=== PATIENT | female | born 1960 | race Caucasian/White ===

== ENCOUNTER 2016-06-26 06:03 | Inpatient (IN) | payer BC ==
[2016-05-31 13:53] VITALS: BMI 43.0
--- NOTE | 2016-05-31 14:21 | PAT Medication Instructions ---
Service Date May 31, 2016. Current Home Medication List Albuterol Sulfate (Proair Hfa), 2 PUFFS QID PRN Diclofenac (Voltaren), 75 MG PO BID Fluticasone Prop/Salmeterol (Advair Diskus 100/50 60 Dose), 1 PUFF INH QAM Levothyroxine Sodium (Levothroid), 100 MCG PO QAM Medication Instructions For Your Scheduled Surgery Diclofenac (Voltaren), 75 MG PO BID (per surgeon for instructions) - Take the following medications the morning of surgery with a sip of water: Fluticasone Prop/Salmeterol (Advair Diskus 100/50 60 Dose), 1 PUFF INH QAM Levothyroxine Sodium (Levothroid), 100 MCG PO QAM Albuterol Sulfate (Proair Hfa), 2 PUFFS QID PRN (bring with you to hospital morning of surgery) - Take the following medications as scheduled the night before surgery: Albuterol Sulfate (Proair Hfa), 2 PUFFS QID PRN If you have any questions please call us at [phone] (Diane Rowan PA-C) or [phone] or [phone]
[2016-05-31 15:04] LABS: BASO % 0.4 %; BASO ABS # 0.02 K/uL (0-0.2); COMPLETE YES; EOS % 3.3 %; HEMATOCRIT 41.1 % (37-47); IG% 0.2 %; LYMPH % 29.7 %; MEAN CORPUSCULAR HGB CONC 33.3 g/dl (32-36); MEAN PLATELET VOLUME 9.2 fL (7.4-10.4); MONO % 11.3 %; NEUT % 55.1 %; PLATELET COUNT 261 K/uL (130-400); RED BLOOD COUNT 4.42 M/uL (4.2-5.4); WHITE BLOOD COUNT 5.39 K/uL (4.8-10.8)
[2016-05-31 15:16] LABS: URINE APPEARANCE CLEAR (CLEAR); URINE BILIRUBIN NEG (NEG); URINE COLOR YELLOW; URINE NITRITE NEG (NEG); URINE SPECIFIC GRAVITY 1.022 (1.000-1.030); UROBILINOGEN NEG (NEG); ZZUR CULT IF INDIC CLEAN CATCH NO
[2016-05-31 15:19] LABS: PARTIAL THROMBOPLASTIN RATIO 1.4; PROTHROMBIN TIME (PATIENT) 10.9 SECONDS (9.0-12.0)
[2016-05-31 15:22] LABS: BUN/CREATININE RATIO 26.7 (10-20); CALCIUM 9.3 mg/dl (8.5-10.1); CREATININE 0.6 mg/dl (0.60-1.20); POTASSIUM 3.9 mmol/L (3.5-5.1)
[2016-05-31 15:23] LABS: MANUAL MICROSCOPIC REQUIRED? NO; REVIEW REQ? NO
--- NOTE | 2016-06-25 14:58 | HISTORY & PHYSICAL EXAMINATION ---
DATE OF ADMISSION: 06/26/[address] Lieberman. CHIEF COMPLAINT: Left hip pain. HISTORY OF PRESENT ILLNESS: This 55-year-old white female presented to the office with complaints of left hip pain that she has had for over a year. Pain has increased with time. Pain is worse with weightbearing and is affecting her ADLs. She notes some limitation of motion. She previously had a right total hip replacement 3 or 4 years ago and is doing fairly well with that. She elects to proceed with the same on the left. No numbness or tingling. X-rays have been obtained. She notes that she would like to lose weight, but it is difficult to exercise with her hip pain. She previously smoked, but has quit. PAST MEDICAL HISTORY: Significant for asthma, COPD, obesity, hypothyroidism, osteoarthritis, and chronic back pain. PREVIOUS SURGERIES: Right hip GAURI 2012. D\T\C, breast biopsy bilaterally. FAMILY HISTORY: Noncontributory. SOCIAL HISTORY: The patient is . No tobacco use, no ETOH use. ALLERGIES: VARENICLINE (CHANTIX). CURRENT MEDICATIONS: Advair Diskus b.i.d., Synthroid daily, Voltaren p.o. b.i.d., albuterol inhaler 2 puffs 4 times a day as needed. REVIEW OF SYSTEMS: Significant for above stated conditions, otherwise unremarkable. PHYSICAL EXAMINATION: GENERAL: Well-developed, well-nourished middle aged white female, in no acute distress. Sitting in a chair. Alert and oriented. Morbidly obese. SKIN: Warm and dry with fair turgor. No rashes or lesions. No ecchymosis or erythema. HEENT: Normocephalic, atraumatic. Eyes PERRLA, EOMI. Nares patent bilaterally without turbinate enlargement. Oropharynx without erythema or exudate. No lesions noted. Uvula midline. Oral mucosa moist. Fair dentition. Fillings are noted. HEART: RRR. No MGR. LUNGS: Inspiratory wheeze heard on her left upper chest. This did clear with some deep breathing. No crackles or rhonchi. Good air movement. ABDOMEN: Morbidly obese. Bowel sounds present x4, soft, nontender. No organomegaly. MUSCULOSKELETAL: Left hip has no obvious asymmetry. No pain with palpation over her greater trochanter. She does have pain with palpation over the anterior flexion crease. Limited range of motion of the hip for flexion around 80 degrees. Limited internal rotation to just beyond neutral. External rotation around 20 degrees. These are all limited by pain. Ambulatory with an antalgic gait. NEUROLOGIC: Gross sensation is intact across both lower extremities by soft touch. Cranial nerves II-XII are intact. Peripheral pulses are 2+. DATA: Radiographic imaging previously obtained shows end-stage DJD of the left hip with joint space narrowing, periarticular osteophytes, and subchondral sclerosis. She already has a right total hip prosthesis present. IMPRESSION: Left hip end-stage degenerative joint disease. PLAN: Informed written consent was obtained to proceed with left total hip arthroplasty. Anticipate discharge to home with 2 weeks of home health services. She already has a walker. Preoperative lab work, EKG, and chest x-ray have been ordered. She has obtained medical clearance from her PCP, Dr. Michelle.
[2016-06-26] VITALS (8 sets, daily range): BP systolic 108–145; BP diastolic 67–98; PULSE 67–81; TEMP 36.4–36.8; O2SAT 94–100; Ht 175.3 cm; Wt 136.5 kg
[~2016-06-26] VITALS: Ht 175.3 cm; Wt 136.5 kg
[~2016-06-26 06:03] MED LIST: ADVIN10/60 INH; ALBU1AER9; CEFAZOLIN 3000 MG/65 ML D5W 65 ML IV SCH; DICL-201 PO; LACTATED RINGER'S 1000ML 1,000 ML IV SCH; LACTATED RINGER'S 1000ML 500 ML IV ONE; LACTATED RINGER'S 1000ML IV SCH; ROPIVACAINE 5MG/ML 30 ML 150 MG, BUPIVACAINE/EPINEPHR 0.5% MPF 30 ML, KETOROLAC TROMETH... INFIL SCH; TRANEXAMIC ACID INJ 1,000 MG in SODIUM CHLORIDE 0.9% 100ML 100 ML IV SCH; [UNRECOGNIZED DRUG - CODE] PO
--- NOTE | 2016-06-26 06:27 | History & Physical Bridge Note ---
H&P Re-Evaluation Bridge Note: I have examined the patient, reviewed the History & Physical and in the interval since the performance of the History & Physical I have noted the following changes of clinical significance: No changes noted
[2016-06-26] MEDS ORDERED: BUPIVACAINE 0.5 % 5 MG/1 ML PF 10ML VIAL ONE (06:49)
[2016-06-26] MEDS ORDERED: ONDANSETRON INJ 2 MG/ML 2 ML VIAL IV PRN ×2 (08:15→11:00)
[2016-06-26] MEDS ORDERED: FENTANYL CITRATE INJ 50 MCG/1 ML 2 ML VIAL IV PRN (08:15)
[2016-06-26] MEDS ORDERED: ATROPINE SULFATE 0.1 MG/ML 5ML SYR IV PRN (08:15)
[2016-06-26] MEDS ORDERED: EpHEDrine SULFATE INJ 50 MG/ML AMP IV PRN (08:15)
[2016-06-26] MEDS ORDERED: ORTHO JOINT ANESTHETIC ONE (08:42)
[2016-06-26] MEDS ORDERED: POVIDONE-IODINE OP SOLN 30 ML BTL ONE (08:43)
[2016-06-26] MEDS ORDERED: MIDAZOLAM HCL 1 MG/ML 2ML VIAL ONE ×2 (09:25→09:28)
[2016-06-26] MEDS ORDERED: FENTANYL CITRATE INJ 50 MCG/1 ML 2 ML VIAL ONE (09:28)
[2016-06-26] MEDS ORDERED: LIDOCAINE HCL 2% 2 ML VIAL (20MG/ML) ONE (09:30)
[2016-06-26] MEDS ORDERED: PROPOFOL IV EMULSION 10 MG/ML 20 ML VIAL IV ONE ×3 (09:30→10:32)
--- NOTE | 2016-06-26 10:43 | [facility] Post Operative Brief Note ---
Immediate Operative Summary Operative Date Jun 26, 2016. Pre-Operative Diagnosis Left hip end-stage degenerative joint disease Post-Operative Diagnosis Left hip end-stage degenerative joint disease Procedure(s) Performed Left Total Hip Arthroplasty--Uncemented Surgeon Dr. Lieberman Corporate Compliance Officer Surgeon(s) John Flores-pac Estimated Blood Loss 250 CC Findings severe djd/large bmi Fluids (cc crystalloids) 1500cc Specimens A: Left femoral head Drains none Anesthesia spinal Complication(s) None Disposition Recovery Room / PACU
[2016-06-26] MEDS ORDERED: DiphenhydrAMINE HCL 50 MG/ML VIAL IV PRN (11:00)
[2016-06-26] MEDS ORDERED: ACETAMINOPHEN 325 MG TAB PO PRN (11:00)
[2016-06-26] MEDS ORDERED: MAGNESIUM HYDROXIDE SUSP 30 ML UDC PO PRN (11:00)
[2016-06-26] MEDS ORDERED: BISACODYL 10 MG SUPP PR PRN (11:00)
[2016-06-26] MEDS ORDERED: METOCLOPRAMIDE HCL INJ 5 MG/ML 2 ML VIAL IV PRN (11:00)
[2016-06-26] MEDS ORDERED: ALBUTEROL HFA 8 GM INHALER INH PRN (11:00)
[2016-06-26] MEDS ORDERED: ALUMINUM/MAGNESIUM/SIMETH (MAALOX MAX) 30 ML UDC PO PRN (11:00)
[2016-06-26] MEDS ORDERED: MoRPHine SULFATE 2 MG/ML CARP IV PRN (11:00)
--- NOTE | 2016-06-26 11:14 | OPERATIVE REPORT ---
DATE OF OPERATION: 06/26/2016 PREOPERATIVE DIAGNOSIS: Severe osteoarthritis, left hip. POSTOPERATIVE DIAGNOSIS: Same with morbid BMI. OPERATION PERFORMED: Noncemented left total hip replacement. SURGEON: Luisana. SENIOR SHIPPING CLERK: Nickolas Flores PA-C. No resident or fellow available. SUMMARY OF IMPLANTS: Size 54 shell sector cup hole eliminator, 6.5 x 30 screw, 36 x 54 neutral liner, 5 high offset stem, 36 +5 head. PERIOPERATIVE SITUATION: Medically cleared female with intractable hip pain has large BMI, but at this point in time she cannot even rest in a chair. She wants to proceed with surgical treatment. Options were discussed with her. She was advised concerning all the increased risk based on her size including fracture, infection, DVT, PE and . She understands this. OPERATION AND FINDINGS: OPERATION: The patient appropriately identified, site verified, consent verified, 3 grams of Ancef confirmed as being given. The left lower extremity was prepped and draped in usual routine fashion with the patient in right lateral decubitus position. Posterolateral approach to the hip was made due to her size, a large incision was required. The fat layer was quite deep. The Charnley retractor was used for the superficial layer, the fascia was then identified. The fascia was then incised and then deep retractors placed. Care taken to protect the sciatic nerve. The short external rotators were released. The capsule was excised. The hip was dislocated. The femoral neck resected. There was large inverted acetabular labrum. This was all resected. Serial reaming carried up to a 54 and a 54 cup impacted into appropriate anteversion and inclination. It had excellent rim fit and it was secured with a 6.5 x 30 screw with excellent purchase. Trial liner was seated. The leg was then flexed and internally rotated. The femur delivered into the wound and the proximal femur prepared with the wire bound box machine operator, lateralizing rasp, serial broaching up to a size 5. A size 5 trial was then carried out with the standard and high offset. The high offset decreased shuck but did not change the length. The stability was excellent. The +5 neck length had the leg lengths within millimeters of equality. The trials were then reduced, the wound was irrigated with Betadine Pulsavac, hole eliminator, permanent liner seated, permanent head and neck seated, the hip reduced. It was very stable in all planes. It was then irrigated with Betadine Pulsavac and then the short external rotators closed with #2 Vicryl, the fascia with multiple #2 Vicryls. The IT band and the gluteus onel fascia and the deep fat with the same stitch and then the subcutaneous fat with 2-0 Vicryl and the skin with antonio. Appropriate dressing applied. The patient transferred to recovery room in satisfactory condition having tolerated the procedure well. Estimated blood loss 250 mL, crystalloid roughly 1500 mL. Again summary of implants 54 shell sector cup hole eliminator, 6.5 x 30 screw, 36 x 54 neutral liner, 5 high offset stem, 36 +5 head. Deep venous thrombosis prophylaxis per protocol. I attest to the content of the Intraoperative Record and any orders documented therein. Any exceptio ns are noted below.
--- NOTE | 2016-06-26 11:36 | DIAGNOSTIC IMAGING REPORT ---
PELVIS 1 OR 2 VIEW ROUTINE CLINICAL HISTORY: Left hip pain COMPARISON STUDY: 04/30/2012 FINDINGS: There are postsurgical changes of bilateral total hip arthroplasties. No acute fractures or dislocations are visualized. There is air within the soft tissues of the left, consistent with recent surgery. IMPRESSION: Bilateral total hip arthroplasties. No evidence of dislocation. Electronically signed by: Jamaal Peña M.D. 06/26/2016 11:34 AM Dictated Date/Time: 06/26/2016 11:33 AM
--- NOTE | 2016-06-26 11:46 | Anesthesiology Progress Note ---
Anesthesia Post Op Note Date & Time Jun 26, 2016 at 11:46 Vital Signs Pain Intensity: 0 Vital Signs Past 12 Hours Date Time Temp Pulse Resp B/P Pulse Ox O2 Delivery O2 Flow Rate FiO2 06/26/16 11:35 36.8 64 18 99/65 100 Nasal Cannula 3 06/26/16 11:20 36.8 59 18 104/64 100 Nasal Cannula 3 06/26/16 11:10 36.8 55 18 97/65 100 Nasal Cannula 3 06/26/16 11:00 60 18 103/55 100 Nasal Cannula 3 06/26/16 10:50 69 18 102/55 100 Nasal Cannula 3 06/26/16 10:43 36.5 67 18 95/54 100 Nasal Cannula 3 06/26/16 07:03 36.6 73 20 145/98 Room Air 94 Notes Mental Status: alert / awake / arousable, participated in evaluation Pt Amnestic to Procedure: Yes Nausea / Vomiting: adequately controlled Pain: adequately controlled Airway Patency, RR, SpO2: stable & adequate BP & HR: stable & adequate Hydration State: stable & adequate Neuraxial Anesthesia: was administered, sensory block is resolving Anesthetic Complications: no major complications apparent
[2016-06-26] MEDS ORDERED: MoRPHine SULFATE 4 MG/ML 1 ML CARP\\VIAL IV PRN (13:30)
--- NOTE | 2016-06-26 13:30 | OPERATIVE REPORT ---
DATE OF OPERATION: 06/26/2016 PREOPERATIVE DIAGNOSIS: Left hip end-stage degenerative joint disease. POSTOPERATIVE DIAGNOSIS: Left hip same. PROCEDURE: Left hip total hip arthroplasty using DePuy implants. SURGEON: Dr. Lieberman. MOLDER LABELS: Nickolas Flores PA-C. HISTORY OF PRESENT ILLNESS: This 55-year-old white female presented to the office with complaints of intractable left hip pain. She had tried conservative care measures without success. She elected to proceed with surgical intervention after being educated about potential risks and outcomes. Preoperative x-rays were obtained. OPERATION: The patient was administered spinal anesthetic and then taken to the operating room where she was given sedation. She was prepped and draped in the usual sterile fashion. Please see Dr. Lieberman's operative report for specifics of the procedure. I was present for the entire case from initial patient positioning through final wound closure. Assistance was provided in tissue retraction, hemostasis, trial implant placement, final implant placement, and final wound closure. The patient was taken to the recovery room in satisfactory condition. I attest to the content of the Intraoperative Record and any orders documented therein. Any exceptio ns are noted below.
--- NOTE | 2016-06-26 13:37 | PROGRESS NOTE ---
DATE: 06/26/2016 Postop check status post left total hip replacement. At this point in time, the patient is doing well. She denies headache, nausea, vomiting, chest pain, shortness of breath, fever or chills. She notes that she can move her toes well. She can flex her hip well. Vital signs are stable. She is afebrile. Examination reveals femoral sciatic nerve to be intact. Wound dressing clean, dry and intact. Postop x-rays look excellent. ASSESSMENT: Doing well. Continue with postop care pathway. Coumadin nomogram dee. PT, OT today.
[2016-06-26] MEDS ORDERED: D5W AND 1/2NSS + 20MEQ KCL 1,000 ML IV SCH (13:45)
[2016-06-26] MEDS: ACETAMINOPHEN IV 1,000 MG in EMPTY BAG 0 ML IV SCH ×2 (13:48→21:30)
[2016-06-26] MEDS: KETOROLAC TROMETHAMINE 30 MG/ML VIAL IV. SCH ×2 (13:51→19:48)
[2016-06-26] MEDS ORDERED: WARF2TAB PO (15:36)
[2016-06-26] MEDS ORDERED: OXYC-57 PO (15:36)
[2016-06-26] MEDS ORDERED: WARFARIN SOD 5 MG TAB PO SCH (16:00)
[2016-06-26] MEDS: CEFAZOLIN IV 2,000 MG in DEXTROSE 5% 50ML 50 ML IV SCH (16:18)
[2016-06-26] MEDS: OXYCODONE HCL IR 5 MG TAB (IMMEDIATE RELEASE) PO PRN (16:18)
[2016-06-26] MEDS ORDERED: TRANEXAMIC ACID INJ 1,000 MG in SODIUM CHLORIDE 0.9% 100ML 100 ML IV SCH (17:00)
[2016-06-26] MEDS: FERROUS GLUCONATE 324 MG TAB PO SCH (18:05)
[2016-06-26] MEDS: DOCUSATE SODIUM 100 MG CAP PO SCH (21:29)
[2016-06-27] MEDS: CEFAZOLIN IV 2,000 MG in DEXTROSE 5% 50ML 50 ML IV SCH (00:15)
[2016-06-27] MEDS: OXYCODONE HCL IR 5 MG TAB (IMMEDIATE RELEASE) PO PRN ×2 (00:16→12:45)
[2016-06-27] MEDS: KETOROLAC TROMETHAMINE 30 MG/ML VIAL IV. SCH ×2 (01:50→07:36)
[2016-06-27 03:42] VITALS: BP 102/60; PULSE 77; TEMP 36.5; O2SAT 94
[2016-06-27] MEDS: ACETAMINOPHEN IV 1,000 MG in EMPTY BAG 0 ML IV SCH (05:36)
[2016-06-27] MEDS ORDERED: LEVOTHYROXINE 100 MCG TAB PO SCH (06:00)
[2016-06-27 06:31] LABS: PROTHROMBIN TIME (PATIENT) 10.8 SECONDS (9.0-12.0)
[2016-06-27 06:50] LABS: BUN/CREATININE RATIO 22.1 (10-20); CALCIUM 8.8 mg/dl (8.5-10.1); CREATININE 0.7 mg/dl (0.60-1.20); POTASSIUM 4.2 mmol/L (3.5-5.1)
[2016-06-27 07:24] LABS: COMPLETE YES; EOS % 0.1 %; HEMATOCRIT 38.8 % (37-47); IG% 0.3 %; LYMPH % 7.9 %; LYMPH ABS # 0.85 K/uL (1.2-3.4); MEAN CELL VOLUME 93.7 fL (80-100); MEAN CORPUSCULAR HEMOGLOBIN 31.4 pg (25-34); MEAN CORPUSCULAR HGB CONC 33.5 g/dl (32-36); MEAN PLATELET VOLUME 9.3 fL (7.4-10.4); NEUT % 81.7 %; PLATELET COUNT 281 K/uL (130-400); RED BLOOD COUNT 4.14 M/uL (4.2-5.4); WHITE BLOOD COUNT 10.82 K/uL (4.8-10.8)
[2016-06-27] MEDS ORDERED: DEXAMETHASONE INJ 10 MG in SYRINGE 0 ML IV SCH (07:30)
--- NOTE | 2016-06-27 08:07 | Orthopedic Progress Note ---
Orthopedic Progress Note Date of Service Jun 27, 2016. Subjective Post OP Day: 1 Reports: feeling well, Denies: SOB, calf pain, chest pain, complaints, light headedness, nausea / vomiting Additional Notes: states she feels well enough to go home today. Has been out of bed. Objective calves soft nontender, N/V intact, hip located, capillary refill less than 2 sec., dressing C/D/I, incision C/D/I, A&O x3, toes mobile, CMS intact minimal drainage on dressings. Moves hip well Date Time Temp Pulse Resp B/P Pulse Ox O2 Delivery O2 Flow Rate FiO2 06/27/16 07:18 Room Air 06/27/16 03:42 36.5 77 18 102/60 94 Room Air 06/27/16 00:05 Room Air 06/26/16 23:05 36.5 72 18 110/68 95 Room Air 06/26/16 20:20 36.8 77 16 116/69 97 Nasal Cannula 2.0 06/26/16 16:00 36.6 75 16 112/75 97 Nasal Cannula 2.0 06/26/16 15:44 Nasal Cannula 2.0 06/26/16 15:00 36.5 81 16 126/79 94 Nasal Cannula 2.0 06/26/16 14:00 36.6 81 18 125/74 100 Nasal Cannula 2.0 06/26/16 13:33 36.5 67 16 116/75 100 Nasal Cannula 2.0 06/26/16 13:00 100 Nasal Cannula 2.0 06/26/16 13:00 36.4 69 18 108/67 100 Nasal Cannula 2.0 06/26/16 13:00 100 Nasal Cannula 2.0 06/26/16 12:50 62 18 103/68 100 Nasal Cannula 2 06/26/16 12:35 80 18 107/68 100 Nasal Cannula 2 06/26/16 12:20 60 18 102/64 100 Nasal Cannula 2 06/26/16 12:05 54 18 105/71 100 Nasal Cannula 2 06/26/16 11:50 59 18 103/67 100 Nasal Cannula 3 06/26/16 11:35 36.8 64 18 99/65 100 Nasal Cannula 3 06/26/16 11:20 36.8 59 18 104/64 100 Nasal Cannula 3 06/26/16 11:10 36.8 55 18 97/65 100 Nasal Cannula 3 06/26/16 11:00 60 18 103/55 100 Nasal Cannula 3 06/26/16 10:50 69 18 102/55 100 Nasal Cannula 3 06/26/16 10:43 36.5 67 18 95/54 100 Nasal Cannula 3 Laboratory Results 24 Hours: Test 06/27/16 05:44 White Blood Count 10.82 K/uL Red Blood Count 4.14 M/uL Hemoglobin 13.0 g/dL Hematocrit 38.8 % Mean Corpuscular Volume 93.7 fL Mean Corpuscular Hemoglobin 31.4 pg Mean Corpuscular Hemoglobin Concent 33.5 g/dl Platelet Count 281 K/uL Mean Platelet Volume 9.3 fL Neutrophils (%) (Auto) 81.7 % Lymphocytes (%) (Auto) 7.9 % Monocytes (%) (Auto) 10.0 % Eosinophils (%) (Auto) 0.1 % Basophils (%) (Auto) 0.0 % Neutrophils # (Auto) 8.85 K/uL Lymphocytes # (Auto) 0.85 K/uL Monocytes # (Auto) 1.08 K/uL Eosinophils # (Auto) 0.01 K/uL Basophils # (Auto) 0.00 K/uL Prothromb Time International Ratio 1.0 Prothrombin Time 10.8 SECONDS Assessment & Plan Assessment: Left hip s/p total hip arthroplasty, post op day 1 Plan: PT/OT this morning D/C to home with home health later today after PT/OT keep the dressings on until Friday, then change daily Dressing changed today by me, wound looks excellent. coumadin today per nomogram, prior to D/C continue total hip precautions. Discharge Planning Discharge Planning: home with home health Pain Management: Percocet DVT Prophylaxis: TEDs, SCDs, Coumadin Therapy: Physical Therapy
--- NOTE | 2016-06-27 08:09 | Discharge Instructions ---
Discharge Instructions Date of Service Jun 26, 2016. Admission Reason for Admission: Djd Hip Left Discharge Discharge Diagnosis / Problem: left hip s/p total hip replacement Discharge Goals Goal(s): Decrease discomfort, Improve function, Increase independence Activity Recommendations Activity Limitations: as noted below Lifting Limitations: gradually increase as tolerated Exercise/Sports Limitations: until after follow-up appointment Shower/Bathe: keep incision dry Driving or Machine Use: No driving until cleared by Dr. Lieberman Weightbearing Status: Left weightbearing (as tolerated) . Instructions / Follow-Up Instructions / Follow-Up New Medicine: * You will likely be taking one or more of these medicines: 1. Percocet - Take, as directed, when you need it, every four to six hours to control your pain. 2. Coumadin - Thins your blood to lessen the chance of forming a blood clot. The dose of this is different for each person and is based on your blood tests that are done twice a week. * The most common side effects of pain medicine and iron are nausea and constipation. If nausea or constipation is too much of a problem or if you have any questions about your new medicines or doses, call [facility] at . We will try to help you manage these issues. VERY IMPORTANT TO READ AND REVIEW" Blood Clots and Blood Thinning Medicine: * You are given Coumadin during the immediate post-operative period to lessen the risk of blood clots forming in your legs and/or lungs. Coumadin is usually given for six weeks after surgery. * The prescription is for 2 mg tablets. At discharge, you should understand your dose and take it all at the same time every day, preferably after dinner. * You need to get your blood checked 1 - 2 times per week for six weeks, or as directed. * If your dose needs to change, we will call you. Do not take your medication on the day of the blood test until we call you. * If you don't hear from us after your blood draws, keep taking the same dose. Pain: * The immediate post-operative period after hip replacement surgery is often quite painful. * You are given a prescription for pain medicine. You should take it, as directed, when you need it, especially before physical therapy and before going to bed. Pain that interferes with sleep is very common and can last several months. * You will likely need pain medicine for the first two to four weeks. It will not stop all of the pain. The pain will lessen and as you feel better, you may change to milder pain medicine such as Tylenol. * The most common side effects of pain medicine are nausea and constipation, so don't take more than you need. Physical Therapy: * Follow the "Hip Precautions Instructions." * In some cases, the public health social worker at the hospital will arrange to have a therapist come to your house for the first couple of weeks to help you learn these skills. * You need to practice on your own or with the help of a family member as needed. * When you learn these skills, most of the therapy can be done on your own. Home Exercise: * You were shown a series of exercises in the hospital. Do these exercises three to four times each day including the exercises you were shown in physical therapy. Walking: * Get up and walk several times each day. For the first four weeks, try not to stand or walk for more than one hour at a time. If you do stand or walk for more than one hour, you will not hurt anything, but your leg will likely swell. * As you feel comfortable, you may change from the walker or crutches to a cane and then to independent walking. SELF CARE INSTRUCTIONS AFTER TOTAL HIP REPLACEMENT Until the incision and soft tissues around your hip have healed, there is a possibility that the hip prosthesis could dislocate. A. Observe the following precautions to prevent dislocation: 1. Don't bend your hip greater than 90 degrees. 2. Avoid crossing your legs or ankles while standing or lying. 3. Sit with your feet placed 6 inches apart. 4. When sitting, keep your knees below your hips. Sit on a firm surface, avoid deep, soft chairs and couches. Use an elevated toilet seat in the bathroom. 5. Don't bend over at the waist. Use a long handled shoehorn and a sock aid to help you put on your shoes and socks. A early learning teacher can help you cotton picker objects that are too high or too low to reach. 6. Keep car riding to a minimum for at least one month after surgery. B. Your balance may be shaky for a while. Use crutches or a walker until directed by your doctor. C. Use hand rails when walking on stairs. D. Wear low heeled shoes with non-slip soles. E. Be sure that your floors are free of things that could trip you - throw rugs , electrical cords, small objects. Avoid wet and waxed floors, especially with crutches and canes. F. Try to walk several times a day with rest periods between. G. Continue with all the exercises taught to you in the hospital. Again, make walking a part of your daily routine. VERY IMPORTANT TO READ AND REVIEW A. Take Coumadin, or Lovenox (blood thinning medications) as directed by your doctor. If you are on Coumadin, have a pro-time (blood test) drawn according to your doctor's instructions. This will tell the doctor how well the Coumadin is thinning your blood. B. There are a few signs you need to watch for after you are home. If you notice any of the followin. Increased severe hip pain. Some pain is expected especially when you exercise. 2. Increased swelling in your leg or knee; pain or swelling of the calf muscle in either lower leg. 3. Any fluid drainage from the incision. 4. Shortness of breath or chest pain. TEDs/Elastic Stockings: * The white elastic stockings help limit swelling and prevent blood clots from forming in your legs. The more you wear them, the more they work. * Wear them for six weeks. Prevention of Infection: * Take antibiotics one hour before any dental cleaning, dental work, urological procedure, gastrointestinal procedure or any invasive surgery in order to prevent your new joint from getting infected. * You may get the antibiotics from the doctor performing the procedure or we will call in a prescription to the pharmacy of your choice. Call the office for a prescription at least 2 days prior to your appointment. Things to Watch For: * Drainage from the incision site that occurs more than one week after your surgery. * Severely increased leg pain or swelling. * Increased redness at the incision site. * Fever above 101 degrees Fahrenheit. * Unusual chest pain or shortness of breath. * Unusual pain or burning with urination. Current Hospital Diet Patient's current hospital diet: AHA Diet (Heart Healthy) Discharge Diet Recommended Diet: Regular Diet Procedures Procedures Performed: Left Total Hip Arthroplasty--Uncemented Pending Studies Studies pending at discharge: no Medical Emergencies . Who to Call and When: Medical Emergencies: If at any time you feel your situation is an emergency, please call 911 immediately. . Non-Emergent Contact Non-Emergency issues call your: Primary Care Provider, Surgeon Call Non-Emergent contact if: temperature is above 101, wound has increased drainage, wound has increased redness, wound has increased pain . "Provider Documentation" section prepared by Nickolas Flores PA-C. VTE Core Measure Inpt VTE Proph given/why not?: Warfarin (Coumadin), T.EPaloma Stockings, SCD's [place] Drug Monitoring Program Search Results: no issues identified
[2016-06-27 08:14] VITALS: BP 103/63; PULSE 80; TEMP 36.9; O2SAT 94
--- NOTE | 2016-06-27 08:19 | PROGRESS NOTE ---
DATE: 06/27/2016 DATE: 06/27/2016. Postop day 1 status post left total hip replacement. At this point in time the patient is doing well. She is ambulatory. She is sitting up at the bed. She denies any chest pain, shortness of breath, fever, chills, nausea, vomiting, or headache. Vital signs are stable. She is afebrile. Wound is clean and intact. Neurovascular check femoral sciatic nerve is normal. Calves are nontender. Hematocrit stable at 38.8. INR is 1.0. The electrolytes are excellent. ASSESSMENT: Overall, doing well. Plan is to discharge today after PT, OT, bulky dressing until Friday. Coumadin 4 mg daily. Check INR on Friday.
--- NOTE | 2016-06-27 08:22 | DISCHARGE SUMMARY ---
DATE OF DISCHARGE: 06/27/2016. CHIEF COMPLAINT: Left hip pain. HISTORY OF PRESENT ILLNESS: A 55-year-old female admitted for elective left total hip replacement. At this point in time her hospital course has been uneventful. PAST MEDICAL HISTORY: Remarkable for COPD, asthma, obesity, hypothyroidism, osteoarthritis, and chronic back pain. PAST SURGICAL HISTORY: Include right total hip replacement, breast biopsy bilaterally, D\T\C. FAMILY HISTORY: Noncontributory. SOCIAL HISTORY: Reveals she is . No tobacco or alcohol use. ALLERGIES: CHANTIX. PREADMISSION MEDICATIONS: Include Advair Diskus, Synthroid, Voltaren, albuterol. She will discontinue the Voltaren. Add p.r.n. pain management with Percocet or equivalent and Coumadin to keep INR 1.8-2.2. She will be discharged on 4 mg. REVIEW OF SYSTEMS: Reveals no chest pain, shortness of breath, fever or chills. ASSESSMENT: Overall doing well status post left total hip replacement. Continue care pathway and follow up in the office in 2 weeks.
[2016-06-27] MEDS ORDERED: MULTIVITAMIN TAB PO SCH (09:00)
[2016-06-27] MEDS ORDERED: PANTOprazole SOD 40 MG TAB PO SCH (09:00)
[2016-06-27] MEDS ORDERED: FLUTICASONE/SALMETEROL 100/50 (ADVAIR) 14 PUFF/1 INHALER INH SCH (09:00)
[2016-06-27 09:22] VITALS: O2SAT 94
[2016-06-27] MEDS: FERROUS GLUCONATE 324 MG TAB PO SCH ×2 (09:55→12:43)
[2016-06-27] MEDS: DOCUSATE SODIUM 100 MG CAP PO SCH (09:56)
[2016-06-27] MEDS ORDERED: WARFARIN SOD 5 MG TAB PO SCH (10:00)
--- NOTE | 2016-06-27 10:42 | Anesthesiology Progress Note ---
Anesthesia Post Op Note Date & Time Jun 27, 2016 at 10:41 Vital Signs Vital Signs Past 12 Hours Date Time Temp Pulse Resp B/P Pulse Ox O2 Delivery O2 Flow Rate FiO2 06/27/16 09:22 94 Room Air 06/27/16 08:14 36.9 80 14 103/63 94 Room Air 06/27/16 07:18 Room Air 06/27/16 03:42 36.5 77 18 102/60 94 Room Air 06/27/16 00:05 Room Air 06/26/16 23:05 36.5 72 18 110/68 95 Room Air Notes Mental Status: alert / awake / arousable, participated in evaluation Pt Amnestic to Procedure: Yes Nausea / Vomiting: adequately controlled Pain: adequately controlled Airway Patency, RR, SpO2: stable & adequate BP & HR: stable & adequate Hydration State: stable & adequate Neuraxial Anesthesia: was administered, sensory block resolved Anesthetic Complications: no major complications apparent
[2016-06-27 11:21] VITALS: BP 142/78; PULSE 80; TEMP 36.4; O2SAT 95
[2016-06-27 12:53] VITALS: BP 142/78; PULSE 80; TEMP 36.4; O2SAT 95
== END 2016-06-27 13:30 | disposition home health service (06) | DRG 470 ==
LOC: ENRESERVTM → ENRESERVDT → C.ACU 06:03 → C.3E 06:50
PROVIDERS: ADMIT Physical Medicine & Rehabilitation Sports Medicine; ATTEND Physical Medicine & Rehabilitation Sports Medicine
PROC: 0SRB0JA Replacement of Left Hip Joint with Synthetic Substitute, Uncemented, Open Approach (ICD-10-PCS; principal; 2016-06-26 08:50)
DX: M16.12 Unilateral primary osteoarthritis, left hip (principal); Z68.41 Body mass index [BMI] 40.0-44.9, adult; J45.909 Unspecified asthma, uncomplicated; J44.9 Chronic obstructive pulmonary disease, unspecified; E03.9 Hypothyroidism, unspecified; G89.29 Other chronic pain; M54.9 Dorsalgia, unspecified; E66.01 Morbid (severe) obesity due to excess calories; Z96.641 Presence of right artificial hip joint; Z87.891 Personal history of nicotine dependence; Z79.1 Long term (current) use of non-steroidal anti-inflammatories (NSAID); Z79.51 Long term (current) use of inhaled steroids; Z79.899 Other long term (current) drug therapy

== ENCOUNTER → 2016-08-26 | Outpatient (CLI) | payer BC ==
[~2016-08-26] MED LIST changes: -CEFAZOLIN 3000 MG/65 ML D5W 65 ML IV SCH; -DICL-201 PO; -LACTATED RINGER'S 1000ML 1,000 ML IV SCH; -LACTATED RINGER'S 1000ML 500 ML IV ONE; -LACTATED RINGER'S 1000ML IV SCH; +OXYC-57 PO; -ROPIVACAINE 5MG/ML 30 ML 150 MG, BUPIVACAINE/EPINEPHR 0.5% MPF 30 ML, KETOROLAC TROMETH... INFIL SCH; -TRANEXAMIC ACID INJ 1,000 MG in SODIUM CHLORIDE 0.9% 100ML 100 ML IV SCH; +WARF2TAB PO
== END | disposition home or self-care (01) ==
LOC: C.RDSM 11:30
PROVIDERS: ATTEND Physical Medicine & Rehabilitation Sports Medicine
DX: Z96.649 Presence of unspecified artificial hip joint (principal)

== ENCOUNTER → 2017-03-26 | Outpatient (CLI) | payer BC ==
[~2017-03-26] MED LIST changes: -OXYC-57 PO; -WARF2TAB PO
--- NOTE | 2017-03-26 11:04 | DIAGNOSTIC IMAGING REPORT ---
R KNEE 4 OR MORE CLINICAL HISTORY: RIGHT KNEE PAIN pain COMPARISON: None DISCUSSION: Throat significant degenerative narrowing of the medial left joint compartment. Moderate narrowing of the medial right joint compartment with mild degenerative osteophytic changes of patellofemoral joint. No lytic or blastic process. There is no evidence for soft tissue swelling. IMPRESSION: 1. Mild/moderate degenerative change medial joint compartment right knee as well as right patellofemoral joint. 2. Significant degenerative narrowing medial joint compartments left knee in the standing position projection The above report was generated using voice recognition software. It may contain grammatical, syntax or spelling errors. Electronically signed by: Lenny Miles M.D. 03/26/2017 11:03 AM Dictated Date/Time: 03/26/2017 11:02 AM
== END | disposition home or self-care (01) ==
LOC: C.RDSM 10:28
PROVIDERS: ATTEND Physician Assistant
DX: M25.561 Pain in right knee (principal); M89.8X6 Other specified disorders of bone, lower leg

== ENCOUNTER → 2017-08-11 | Outpatient (CLI) | payer BC | END | disposition home or self-care (01) | LOC: C.RDSM 17:09 | PROVIDERS: ATTEND Physical Medicine & Rehabilitation Sports Medicine | DX: Z96.642 Presence of left artificial hip joint (principal) ==

== ENCOUNTER 2019-12-01 05:14 | Observation (INO) ==
--- NOTE | 2019-11-05 12:55 | PAT Medication Instructions ---
Medication Instructions Date of Service November 05, 2019 Home Medications acetaminophen [Tylenol Extra Strength] 1,000 mg PO BID albuterol sulfate [ProAir HFA] 2 puff INHALATION QID PRN atenolol 25 mg PO QAM fluticasone propion-salmeterol 1 inh INHALATION QPM furosemide 20 mg PO QAM levothyroxine 100 mcg PO QAM multivitamin 1 tab PO QAM naproxen sodium [Aleve] 440 mg PO Q12H diclofenac sodium [Diclo Gel] 2 g TOPICAL QPM fexofenadine 180 mg PO QAM ASK your surgeon for instructions naproxen sodium [Aleve] 440 mg PO Q12H STOP taking 24 hours before surgery diclofenac sodium [Diclo Gel] 2 g TOPICAL QPM DO NOT take the morning of surgery furosemide 20 mg PO QAM multivitamin 1 tab PO QAM fexofenadine 180 mg PO QAM Take morning of surgery With a small sip of water, OTHERWISE NOTHING TO EAT OR DRINK AFTER MIDNIGHT: acetaminophen [Tylenol Extra Strength] 1,000 mg PO BID (okay to take up to 4 hours prior to surgery if needed) albuterol sulfate [ProAir HFA] 2 puff INHALATION QID PRN (use if needed; please bring with you to hospital day of surgery if possible) levothyroxine 100 mcg PO QAM Take evening before surgery acetaminophen [Tylenol Extra Strength] 1,000 mg PO BID albuterol sulfate [ProAir HFA] 2 puff INHALATION QID PRN (if needed) fluticasone propion-salmeterol 1 inh INHALATION QPM Other Notes If you have any questions please call us at [phone] or [phone] or [phone] or [phone]
--- NOTE | 2019-11-05 13:15 | PAT Medication Instructions ---
Medication Instructions Date of Service November 05, 2019 Home Medications acetaminophen [Tylenol Extra Strength] 1,000 mg PO BID albuterol sulfate [ProAir HFA] 2 puff INHALATION QID PRN atenolol 25 mg PO QAM fluticasone propion-salmeterol 1 inh INHALATION QPM furosemide 20 mg PO QAM levothyroxine 100 mcg PO QAM multivitamin 1 tab PO QAM naproxen sodium [Aleve] 440 mg PO Q12H diclofenac sodium [Diclo Gel] 2 g TOPICAL QPM fexofenadine 180 mg PO QAM ASK your surgeon for instructions naproxen sodium [Aleve] 440 mg PO Q12H STOP taking 24 hours before surgery diclofenac sodium [Diclo Gel] 2 g TOPICAL QPM DO NOT take the morning of surgery furosemide 20 mg PO QAM multivitamin 1 tab PO QAM fexofenadine 180 mg PO QAM Take morning of surgery With a small sip of water, OTHERWISE NOTHING TO EAT OR DRINK AFTER MIDNIGHT: acetaminophen [Tylenol Extra Strength] 1,000 mg PO BID (okay to take up to 4 hours prior to surgery if needed) albuterol sulfate [ProAir HFA] 2 puff INHALATION QID PRN (use if needed; please bring with you to hospital day of surgery if possible) atenolol 25 mg PO QAM levothyroxine 100 mcg PO QAM Take evening before surgery acetaminophen [Tylenol Extra Strength] 1,000 mg PO BID (if needed) albuterol sulfate [ProAir HFA] 2 puff INHALATION QID PRN (if needed) fluticasone propion-salmeterol 1 inh INHALATION QPM Other Notes If you have any questions please call us at [phone] or [phone] or [phone] or [phone]
--- NOTE | 2019-11-08 12:29 | Anesthesiology Consultation ---
Date of Service November 08, 2019 Assessment & Plan (1) Encounter for pre-operative examination: - S/P Left GAURI: 06/26/16: SAB x1 attempt at [facility] (patient reports awareness with this surgery that she states she did not have with previous right GAURI). - Cardiology note: 06/22/19: Nuclear stress test from 06/17/19 reviewed. "Please let patient know that I reviewed her stress test results. There was a very small imaging abnormality in the one part of the heart. This could suggest either a small old heart attack or possibly movement artifact, which is common. There was normal wall motion and thickness in this area, suggesting this may not be an old WV but rather artifact. She also had an echo with normal wall motion and no evidence of prior WV. At this time, I do not believe further imaging or work up is needed. She should call the office with any new complaints of chest pain or worsening symptoms. She may proceed with elective orthopedic surgery with low to moderate risk of cardiac complications. No further cardiac testing warranted at this time." - Per PAT assessment on 11/07: Travel screen- Lives/works in [place] [place] No known COVID-19 positive contacts. No current COVID-19 related symptoms. Surgeon arranging preop COVID testing. Awaiting results. Chart Review Chart Review: Acceptable Risk for Surgery (pending surgeon-ordered PCP clearance ([facility])) and Patient seen in Pre Admission Testing Teaching & Discussion Pre-Anesthesia Teaching/Discussion Notes: Instructed NPO after midnight before surgery,except medications with 15 cc of water. Medication instructions provided according to the PAT guidelines. History Surgery Operation Date: 12/01/19 07:00 Proposed Procedures p Left Total Knee Arthroplasty - Rinku Lieberman MD Height/Weight Height: 5 ft 6 in Weight: 146.2 kg Allergies Allergy/AdvReac Type Severity Reaction Status Date / Time varenicline Allergy Intermediate nightmares Verified 10/29/19 08:09 Medications Home Medications Medication Instructions Recorded Confirmed Last Taken acetaminophen [Tylenol Extra 1,000 mg PO BID 07/01/19 10/29/19 Unknown Strength] albuterol sulfate [ProAir HFA] 2 puff INHALATION QID PRN 07/01/19 10/29/19 Unknown atenolol 25 mg PO QAM 07/01/19 10/29/19 Unknown fluticasone propion-salmeterol 1 inh INHALATION QPM 07/01/19 10/29/19 Unknown furosemide 20 mg PO QAM 07/01/19 10/29/19 Unknown levothyroxine 100 mcg PO QAM 07/01/19 10/29/19 Unknown multivitamin 1 tab PO QAM 07/01/19 10/29/19 Unknown naproxen sodium [Aleve] 440 mg PO Q12H 07/01/19 10/29/19 Unknown diclofenac sodium [Diclo Gel] 2 g TOPICAL QPM 10/29/19 10/29/19 Unknown fexofenadine 180 mg PO QAM 10/29/19 10/29/19 Unknown Past Medical History Medical History Chronic back pain lower back Chronic obstructive pulmonary disease stable Hypothyroidism Morbid obesity Osteoarthritis Paroxysmal SVT (supraventricular tachycardia) Exercise / Class Metabolic Activity III < 4 Walking/Shop/Light housework Past Family History Family History Grandmother (Maternal) Family history of diabetes mellitus Aunt Family history of diabetes mellitus Past Surgical History Surgical History (Updated 11/08/19 @ 12:58 by Diane Rowan) History of bilateral tubal ligation History of colonoscopy History of total hip arthroplasty R/L; Left GAURI: 06/26/16: SAB x1 attempt at [facility] Past Anesthesia History No Family Hx of Anesthesia Complications and Other (*Awareness with Left GAURI*) History of PONV No Hx of PONV and Hx of Motion Sickness Social History Smoking Status: Former smoker tobacco type: cigarettes Do You Dip or Chew Tobacco: No Smoking End Date: QUIT 10+ YEARS AGO Hx Alcohol Use: Yes Alcohol type: beer alcohol intake frequency: holidays/special occasions only Hx Substance Use: No substance use type: does not use Review of Systems Patient denies chest pain, shortness of breath, fever, chills, cough, wheezing, palpitations. Physical Exam Vital Signs VITALS BP 125/87 P 55 TEMP 98.5 SP02 93%RA RESP 18 PHYSICAL Full neck and c-spine range of motion. Full TMJ range of motion. TMD 3.5 finger breaths Mallampati Score 1 Dentition: several missing sides/molars Lungs: clear throughout to auscultation Cardiac: regular rate and rhythm, no murmurs noted Spine: normal Carotid arteries: negative bruit Extremities: no edema Short, thick neck Testing Laboratory Results 11/08/19 12:51 11/08/19 12:51 PT 10.5 Seconds (9.0-12.0) 11/08/19 12:51 INR 1.0 (0.9-1.1) 11/08/19 12:51 APTT 28.2 Seconds (21.0-31.0) 11/08/19 12:51 Urine Color Yellow 11/08/19 12:51 Urine Appearance Clear (Clear) 11/08/19 12:51 Urine pH 6.0 (4.5-7.5) 11/08/19 12:51 Ur Specific [place] 1.022 (1.000-1.030) 11/08/19 12:51 Urine Protein Negative (Negative) 11/08/19 12:51 Urine Glucose (UA) Negative (Negative) 11/08/19 12:51 Urine Ketones Negative (Negative) 11/08/19 12:51 Urine Nitrite Negative (Negative) 11/08/19 12:51 Ur Leukocyte Esterase 1+ (Negative) H 11/08/19 12:51 Urine WBC (Auto) 10-30 /hpf (0-5) H 11/08/19 12:51 Urine RBC (Auto) 0-4 /hpf (0-4) 11/08/19 12:51 U Hyaline Cast (Auto) 0 /lpf (0-5) 11/08/19 12:51 U Epithel Cells (Auto) >30 /lpf (0-5) H 11/08/19 12:51 Urine Bacteria (Auto) Negative (Negative) 11/08/19 12:51 Blood Type O Positive 11/08/19 12:51 Antibody Screen NEGATIVE 11/08/19 12:51 Electrocardiogram Date: 05/27/19 NSR at 77bpm. LAD. Chest X-Ray Date: 11/08/19 FINDINGS: PA and lateral chest radiographs are compared to study dated 04/14/2012. The cardiomediastinal silhouette is unremarkable. The lungs appear hyperinflated. Chronic interstitial thickening similar to previous. Mild scarring/atelectasis is seen at the lung bases. No airspace consolidation or pleural effusion is identified. There is no pneumothorax. The skeletal structures are osteopenic. The bony thorax appears intact. Degenerative change is noted throughout the thoracic spine. IMPRESSION: No active disease in the chest. Echocardiogram Date: 06/17/19 LVEF 60-64%. No RWMA. Mild LAE. Grade I DD. Mild TR. Stress Test Date: 06/17/19 Type: nuclear Gated SPECT imaging reveals normal myocardial thickening and wall motion. LVEF 70%. Overall this nuclear stress test reveals a small infarct of the distal anterior septum with mild todd-infarct ischemia. 71% MPHR.
--- NOTE | 2019-11-08 13:31 | XRay Report ---
TWO VIEW CHEST CLINICAL HISTORY: Preoperative examination. FINDINGS: PA and lateral chest radiographs are compared to study dated 04/14/2012. The cardiomediastin al silhouette is unremarkable. The lungs appear hyperinflated. Chronic interstitial thickening simila r to previous. Mild scarring/atelectasis is seen at the lung bases. No airspace consolidation or pleu ral effusion is identified. There is no pneumothorax. The skeletal structures are osteopenic. The bon y thorax appears intact. Degenerative change is noted throughout the thoracic spine. IMPRESSION: No active disease in the chest. ACT 112: Negative or not required by law. Electronically signed by: Andreas Gamino M.D. 11/08/2019 1:29 PM
[2019-11-08 13:43] LABS: Appearance Urine Clear (Clear); Bacteria Urine Automated Negative (Negative); Basophils # (auto) 0.03 K/uL (0-0.2); Basophils % (auto) 0.5 %; Bilirubin Urine Negative (Negative); Blood Urine Negative (Negative); Cast Urine Automated 0 /lpf (0-5); Color Urine Yellow; Eosinophils # (auto) 0.24 K/uL (0-0.5); Epithelial Cell Urine Auto >30 /lpf (0-5); Glucose Urine UA Negative (Negative); Hematocrit (blood only) 42.7 % (37-47); Hemoglobin 13.7 g/dL (12.0-16.0); Ketones Urine Negative (Negative); Leukocyte Esterase Urine 1+ (Negative); Lymphocytes # (auto) 1.83 K/uL (1.2-3.4); Lymphocytes % (auto) 30.2 %; Mean Corpuscular Hemoglobin 30.4 pg (25-34); Mean Corpuscular Hgb Conc 32.1 g/dL (32-36); Mean Corpuscular Volume 94.9 fL (80-100); Mean Platelet Volume 9.4 fL (7.4-10.4); Monocytes # (auto) 0.57 K/uL (0.11-0.59); Monocytes % (auto) 9.4 %; Neutrophils # (auto) 3.39 K/uL (1.4-6.5); Neutrophils % (auto) 55.9 %; Nitrite Urine Negative (Negative); Platelet Count 290 K/uL (130-400); Protein Urine Negative (Negative); RBC Urine Automated 0-4 /hpf (0-4); RDW Coefficient of Variation 12.9 % (11.5-14.5); RDW Standard Deviation 44.8 fL (36.4-46.3); Specific Gravity Urine 1.022 (1.000-1.030); Urobilinogen Urine Negative (Negative); White Blood Count 6.06 K/uL (4.8-10.8)
[2019-11-08 13:52] LABS: Partial Thromboplastin Time 28.2 Seconds (21.0-31.0); Prothrombin Time 10.5 Seconds (9.0-12.0)
[2019-11-08 15:15] LABS: BUN Creatinine Ratio 32.2 (10-20); Calcium 9.2 mg/dl (8.5-10.1); Est GFR (Non-African American) 97.5; Potassium 4.1 mmol/L (3.5-5.1)
[2019-12-01] MEDS ORDERED: LR 500ML BOLUS, THEN 15ML/HR IV SCH (06:00)
[2019-12-01] MEDS ORDERED: TRANEXAMIC ACID 1,000 MG **IV Pre-op IV SCH (06:00)
[2019-12-01] MEDS ORDERED: LR 60ML/HR IV SCH (06:00)
[2019-12-01] MEDS ORDERED: ROPIVACAINE 0.5% HCL/PF 150 MG, BUPIVACAINE 0.5% MPF 30 ML, EPINEPHrine 0.15 MG, Ketoro... INFIL SCH (06:00)
[2019-12-01] MEDS ORDERED: CEFAZOLIN 3000MG 72.5 ML IV SCH (06:00)
--- NOTE | 2019-12-01 06:25 | History & Physical Bridge Note ---
Date of Service December 01, 2019 History & Physical Bridge Note I have examined the patient, reviewed the History & Physical and in the interval since the performance of the History & Physical I have noted the following changes of clinical significance: consent obtained/site verified/covid screen negative.no changes noted
[2019-12-01] MEDS ORDERED: fentaNYL citrate 100 MCG/2 ML VIAL ONE (06:29)
[2019-12-01] MEDS ORDERED: LIDOCAINE HCL 2% 2 ML VIAL/AMP(20MG/ML) INFIL ONE (06:29)
[2019-12-01] MEDS ORDERED: PROPOFOL IV EMULSION 10 MG/ML 20 ML VIAL IV ONE ×4 (06:29→07:49)
[2019-12-01] MEDS ORDERED: EPINEPHrine INJ 1 MG/ML AMP ONE (06:30)
[2019-12-01] MEDS ORDERED: BUPIVACAINE 0.5 % 5 MG/1 ML PF 10ML VIAL ONE (06:30)
[2019-12-01] MEDS ORDERED: ROPIVACAINE 0.5% 5 MG/ML 30 ML VIAL ONE (06:30)
[2019-12-01] MEDS ORDERED: MIDAZOLAM HCL 1 MG/ML 2ML VIAL ONE (06:30)
[2019-12-01] MEDS ORDERED: ORTHO JOINT ANESTHETIC ONE (06:49)
[2019-12-01] MEDS ORDERED: PHENYLEPHRINE 100MCG/ML 5ML SYR IV PRN (07:13)
[2019-12-01] MEDS ORDERED: ATROPINE SULFATE 0.1 MG/ML 10ML SYR IV PRN (07:13)
[2019-12-01] MEDS ORDERED: LABETALOL HCL IV 5 MG/ML 20ML IV PRN (07:13)
[2019-12-01] MEDS ORDERED: fentaNYL citrate 100 MCG/2 ML VIAL IV PRN (07:13)
[2019-12-01] MEDS ORDERED: ePHEDrine sulfate 50 MG/ML AMP IV PRN (07:13)
[2019-12-01] MEDS ORDERED: ONDANSETRON INJ 2 MG/ML 2 ML VIAL IV PRN ×2 (07:13→10:08)
[2019-12-01] MEDS ORDERED: HYDROmorphone INJ 1 MG/ML SYRINGE IV PRN (07:13)
[2019-12-01] MEDS ORDERED: MEPERIDINE HCL 25 MG/ML CARP/VIAL IV PRN (07:13)
--- NOTE | 2019-12-01 08:32 | Post Operative Brief Note ---
Immediate Post Op Note v1 Date of Surgery December 01, 2019 Pre & Post Diagnosis Operation Date: 12/01/19 07:00 Pre-Op Diagnosis: Left Knee Degenerative Joint Disease Post-Op Diagnosis: Left Knee Degenerative Joint Disease I identified the patient and participated in the time-out.: Yes Procedure Operation Date: 12/01/19 07:00 Actual Procedures p Left Total Knee Arthroplasty(Left) - Rinku Lieberman MD Surgeon Rinku Lieberman MD Cable Ferry Operator luis enrique/ac/tabatha Estimated Blood Loss 50 Findings Consistent with Post-Op Diagnosis
--- NOTE | 2019-12-01 08:45 | Operative Report ---
Post Operative Report Pre & Post Diagnosis Operation Date: 12/01/19 07:00 Pre-Op Diagnosis: Left Knee Degenerative Joint Disease Post-Op Diagnosis: Left Knee Degenerative Joint Disease I identified the patient and participated in the time-out.: Yes Procedure Operation Date: 12/01/19 07:00 Actual Procedures p Left Total Knee Arthroplasty(Left) - Rinku Lieberman MD Surgeon ERIN Lieberman MD Puffer Tender luis enrique/ac/tabatha Estimated Blood Loss 50 Findings Consistent with Post-Op Diagnosis Specimens see operative report Drains none Complications none Disposition Accompanied Patient To Recovery: Yes Disposition: Recovery Room Indications This 59-year-old white female presented to the office with complaints of intractable left knee pain. She had tried conservative care measures without improvement. She elected to proceed with surgical intervention after being educated about potential risks and outcomes. Preoperative imaging was obtained. Description of Procedure Patient was administered a spinal anesthetic and then taken to the operating room where she was given sedation. She was prepped and draped in the usual sterile fashion. Please see Dr. Lieberman's operative report for specifics of the procedure. I was present for the entire case from initial patient positioning through final wound closure. Assistance was provided in tissue retraction, hemostasis, trial implant placement, final implant placement, and final wound closure. Patient was taken to the recovery room in satisfactory condition. I attest to the content of the Intraoperative Record and any orders documented therein. Any exceptions are noted below.
--- NOTE | 2019-12-01 08:51 | Operative Report (OR) ---
DATE OF OPERATION: 12/01/2019 SURGEON: Rinku Lieberman MD. DIRECT MARKETING MANAGER: Oriana. SECOND DIRECT MARKETING MANAGER: Nickolas Flores PA-C. THIRD DIRECT MARKETING MANAGER: Gerri 4th year med student. PREOPERATIVE DIAGNOSES: Severe osteoarthritis with varus deformity, left knee. POSTOPERATIVE DIAGNOSES: Severe osteoarthritis with varus deformity, left knee. OPERATION PERFORMED: Cemented left total knee replacement. SUMMARY OF IMPLANTS: Size 4 left femur, posterior cruciate substituting size 4 mobile bearing tray, size 4 x 12.5 posterior cruciate substituting insert and a 41 patella, 2 bags of Palacos G cement. ESTIMATED BLOOD LOSS: 50 mL CRYSTALLOID: Per anesthesia. DVT prophylaxis per protocol. PERIOPERATIVE SITUATION: Medically cleared female with intractable knee pain, has severe disease by x-rays, has high BMI. She knows she is at risk based on this. Consent was appropriately obtained. She wants to proceed with surgery. DESCRIPTION OF PROCEDURE: The patient was properly identified, site verified, consent verified. Antibiotics confirmed as being given. The left lower extremity was prepped and draped in usual routine fashion. The anterior approach to the knee was made. Sharp dissection carried through skin and blunt dissection down to the fascia. Arthrotomy performed and patella everted. Synovectomy completed, osteophytes resected. Distal femur entered. Distal femur resected 12 mm, proximal tibia resected 4 mm, extension gap excellent. Menisci remnants resected. Box cut made. Flexion gap checked. Everything excellent. Size 4 fit well. The tibia was broached and reamed to a size 4. Size 12.5 spacer made everything stable in mid range flexion. I took away a little bit of hyperextension as well when it was only a 10. The patella was then trimmed leaving a 13-14 mm. Seating holes made. Trial tracked well. Size 41. All trial implants were removed, knee irrigated with Betadine Pulsavac and permanent cemented in position, tibia, femur and patella in that order. After cement cured for 12 minutes, the tourniquet deflated. After 2 more minutes, minor bleeding points controlled with electrocautery. Minor cement removal occurred. Knee subluxated, the trial implant removed, knee irrigated. Permanent spacer seated, knee reduced and then closed. It was closed at roughly 40 degrees of flexion with #2 Vicryl, 2-0 Vicryl and stainless steel clips. Appropriate dressing applied including a Gary Pimentel dressing. She will have a Prevena tomorrow based on her high BMI. The patient transferred to recovery room in satisfactory condition having tolerated the procedure well. I attest to the content of the Intraoperative Record and any orders documented therein. Any exception s are noted below.
[2019-12-01] MEDS ORDERED: VANCOMYCIN HCL 2,250 MG in SODIUM CHLORIDE 0.9% 500 ML IV SCH (09:00)
--- NOTE | 2019-12-01 09:05 | XRay Report ---
LEFT KNEE 2 VIEWS History: Left total knee arthroplasty. Degenerative arthritis. Postop. FINDINGS: The patient is status post a left total knee arthroplasty. The hardware is intact. No fract ure or dislocation. Skin antonio are in place. IMPRESSION: Left total knee arthroplasty. No evidence for hardware complication. ACT 112: Negative or not required by law. Electronically signed by: Shaun Rodríguez M.D. 12/01/2019 9:04 AM
--- NOTE | 2019-12-01 09:32 | Anesthesiology Progress Note ---
Date of Service December 01, 2019 Anesthesia Post Procedure Vital Signs Vital Signs: Temp Pulse Pulse Resp BP Pulse Ox 12/01/19 09:20 59 L 12 112/69 100 12/01/19 09:10 66 13 111/69 99 12/01/19 09:00 69 15 108/68 97 12/01/19 08:50 76 14 104/65 97 12/01/19 08:42 36.4 C L 79 19 109/69 97 12/01/19 05:50 37.2 C 73 20 122/76 95 Transfer of Care Handoff Completed per policy Notes Mental Status: alert / awake / arousable and participated in evaluation Patient Amnestic to Procedure: Yes Nausea / Vomiting: adequately controlled Pain: adequately controlled Airway Patency, RR, SpO2: stable & adequate BP & HR: stable & adequate Hydration State: stable & adequate Neuraxial Anesthesia: was administered and sensory block is resolving Anesthetic Complications: no major complications apparent and Pt Satisfied with anesthetic care
[2019-12-01] MEDS ORDERED: ALUMINUM/MAGNESIUM SUSP 30 ML UDC PO PRN (10:08)
[2019-12-01] MEDS ORDERED: OXYCODONE HCL IR 5 MG TAB (IMMEDIATE RELEASE) PO PRN (10:08)
[2019-12-01] MEDS ORDERED: NALOXONE HCL 0.4 MG/1 ML VIAL/CARP IV PRN (10:08)
[2019-12-01] MEDS ORDERED: VANCOMYCIN CONSULT ACTIVE PRN (10:08)
[2019-12-01] MEDS ORDERED: DiphenhydrAMINE HCL 50 MG/ML VIAL IV PRN (10:08)
[2019-12-01] MEDS ORDERED: HYDROmorphone INJ 0.5 MG/0.5 ML SYR IV PRN (10:08)
[2019-12-01] MEDS ORDERED: MAGNESIUM HYDROXIDE SUSP 30 ML UDC PO PRN (10:08)
[2019-12-01] MEDS ORDERED: bisacodyL 10 MG SUPP PR PRN (10:08)
[2019-12-01] MEDS ORDERED: METOCLOPRAMIDE HCL INJ 5 MG/ML 2 ML VIAL IV PRN (10:08)
[2019-12-01] MEDS ORDERED: ALBUTEROL HFA 8 GM INHALER INH PRN (10:13)
[2019-12-01] MEDS ORDERED: SODIUM CHLORIDE 0.9% 1000ML 1,000 ML IV SCH (10:15)
[2019-12-01] MEDS: KETOROLAC 30 MG/ML VIAL IV SCH ×3 (11:06→22:52)
[2019-12-01] MEDS: DOCUSATE SODIUM 100 MG CAP PO SCH ×2 (11:07→22:33)
[2019-12-01] MEDS: MULTIVITAMIN TAB PO SCH (11:07)
[2019-12-01] MEDS: ACETAMINOPHEN 500 MG TAB PO SCH ×2 (13:35→22:32)
[2019-12-01] MEDS ORDERED: ORTHO WARFARIN NOMOGRAM SCH (14:00)
--- NOTE | 2019-12-01 14:19 | Progress Notes ---
DATE: 12/01/2019 SUBJECTIVE: Status post left total knee replacement. The patient did well with no issues. She denies chest pain, shortness of breath, fever, chills, nausea, vomiting or headache. OBJECTIVE: Vital signs are stable. She is afebrile. Postop x-rays look excellent. ASSESSMENT: Doing well status post left total knee replacement. Plan is to discharge to home tomorrow if she does well overnight.
--- NOTE | 2019-12-01 14:21 | Discharge Summary (DS) ---
CHIEF COMPLAINT: Left knee pain. HISTORY OF PRESENT ILLNESS: Underwent elective left total knee replacement. Hospital course has been uneventful. She is eating, drinking, voiding and mobilizing. Postop x-rays look excellent. She denies chest pain, shortness of breath, fever, chills, nausea, vomiting or headache. At this point in time, hospital course has been uneventful. PAST MEDICAL HISTORY: Remarkable for osteoarthritis of her hips, COPD, hypothyroidism, bilateral knee arthritis status post multiple injections in the knees. PAST SURGICAL HISTORY: Remarkable for breast biopsies, D&Cs, bilateral hip replacements. 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 Social alcohol. Postop x-rays look excellent in the hospital. PREADMISSION MEDICATIONS: Lasix, atenolol, albuterol, Levoxyl, Advair Diskus, Claritin. She will be discharged on Coumadin; keep INR 1.8-2.2. P.r.n. pain medication. Please see prescription. ASSESSMENT: Status post left total knee replacement. At this point in time discharge to home if she does well overnight. Home services.
[2019-12-01] MEDS: CEFAZOLIN 2000MG 2,000 MG/15 ML SYR IV SCH ×2 (14:32→22:53)
[2019-12-01] MEDS ORDERED: TRANEXAMIC ACID / 0.7% NACL 1,000 MG/100 ML BAG IV SCH (14:50)
[2019-12-01] MEDS ORDERED: WARFARIN SOD 5 MG TAB PO ONE (16:00)
[2019-12-01] MEDS: ASCORBIC ACID 500 MG TAB PO SCH (16:45)
[2019-12-01] MEDS: FERROUS GLUCONATE 324 MG TAB PO SCH (16:45)
[2019-12-01] MEDS ORDERED: SENNA 8.6 MG TAB PO SCH (21:00)
[2019-12-02] MEDS: KETOROLAC 30 MG/ML VIAL IV SCH (05:37)
[2019-12-02] MEDS: ACETAMINOPHEN 500 MG TAB PO SCH (05:37)
[2019-12-02 06:11] LABS: Hematocrit (blood only) 37.6 % (37-47); Hemoglobin 12.4 g/dL (12.0-16.0); Mean Platelet Volume 9.1 fL (7.4-10.4); Platelet Count 241 K/uL (130-400); RDW Coefficient of Variation 13.1 % (11.5-14.5); RDW Standard Deviation 44.9 fL (36.4-46.3)
[2019-12-02 06:22] LABS: INR 1.1 (0.9-1.1); Prothrombin Time 11.4 Seconds (9.0-12.0)
[2019-12-02] MEDS ORDERED: LEVOTHYROXINE SODIUM 100 MCG TABLET PO SCH (06:30)
[2019-12-02 06:44] LABS: BUN Creatinine Ratio 23.2 (10-20); Calcium 8.9 mg/dl (8.5-10.1); Creatinine Clr Calc Pharmacy 128.8 ml/min; Est GFR (African American) 110.2; Est GFR (Non-African American) 95.1; Potassium 4.1 mmol/L (3.5-5.1)
--- NOTE | 2019-12-02 06:57 | Progress Notes ---
DATE: 12/02/2019 SUBJECTIVE: Day #1 check status post left total knee replacement. The patient is up walking around in the room. She denies any chest pain, shortness of breath, fever, chills, nausea, vomiting, or headache. OBJECTIVE: VITAL SIGNS: Stable. She is afebrile. LABORATORY DATA: Hematocrit stable at 37.6. INR is 1.1. PRP is pending. ASSESSMENT AND PLAN: Doing well. Femoral sciatic nerve normal. Wound dressing clean, dry and intact. Discharge to home today. Coumadin per nomogram.
[2019-12-02] MEDS ORDERED: dexAMETHasone 10 MG in SYRINGE 0 ML IV SCH (08:00)
[2019-12-02] MEDS: ASCORBIC ACID 500 MG TAB PO SCH (08:45)
[2019-12-02] MEDS: MULTIVITAMIN TAB PO SCH (08:45)
[2019-12-02] MEDS: DOCUSATE SODIUM 100 MG CAP PO SCH (08:45)
[2019-12-02] MEDS: FERROUS GLUCONATE 324 MG TAB PO SCH (08:46)
[2019-12-02] MEDS ORDERED: FUROSEMIDE 20 MG TAB PO SCH (09:00)
[2019-12-02] MEDS ORDERED: FLUTICASONE/VILANTEROL 100/25MCG 14 PUFFS/INHALER INH SCH (09:00)
[2019-12-02] MEDS ORDERED: ATENOLOL 25 MG TABLET PO SCH (09:00)
[2019-12-02] MEDS ORDERED: FEXOFENADINE HCL 180 MG TAB PO SCH (09:00)
[2019-12-02] MEDS ORDERED: WARFARIN SOD 5 MG TAB PO SCH (10:30)
--- NOTE | 2019-12-02 12:01 | Orthopedic Progress Note ---
Date of Service December 02, 2019 Assessment & Plan (1) Status post total left knee replacement using cement: Dressings were changed today by me. Pravena wound VAC was applied. This will remain in place for a week. Follow-up in the office on December 08 at 2 PM for wound VAC removal. PT/OT today. Anticipate discharge to home today with home health services. Prescriptions for Percocet and Coumadin were sent to her pharmacy. Have blood drawn on Friday to assess INR. Ice and elevate frequently to reduce pain and swelling. Continue using her knee immobilizer today and tomorrow. Discontinue on Friday. Follow-up in the office on December 15 at 1 PM with Nickolas for staple removal. Admission and Anticipated Discharge Date Admission Date: December 01, 2019 Subjective Patient is seen in her room this morning. She is sitting on the bed. She has already finished breakfast. States she did not sleep well last night. Denies any chest pain, shortness of breath, nausea, vomiting, or abdominal pain. She feels ready for discharge to home. No other complaints. Review of Systems Review of Systems: Unchanged from yesterday Physical Exam Physical Exam: Left knee has intact dressings. They are dry. Upon removal, there is no active bleeding. Expected postoperative ecchymosis. Minimal edema. Intact motor function to the ankle and toes. She is able to perform a straight leg raise with some assistance. Full extension. Flexion to around 50 degrees without warming up. Neurologic: Gross sensation is intact across the left leg by soft touch. Peripheral pulses are 2+. Results & Data ([facility]) Vital Signs (Past 12 Hours) Vital Signs Temp Pulse Pulse Resp BP Pulse Ox 12/02/19 11:08 36.5 C 70 73 16 123/82 94 12/02/19 07:26 36.5 C 73 16 123/82 94 12/02/19 03:26 36.7 C 73 16 114/73 95 Diagnostic Findings H&H obtained today are 12.4 and 37.6. INR is 1.1. PRP is unremarkable.
--- NOTE | 2019-12-02 16:45 | Operative Report ---
Post Operative Report Pre & Post Diagnosis Operation Date: 12/01/19 07:00 Pre-Op Diagnosis: Left Knee Degenerative Joint Disease Post-Op Diagnosis: Left Knee Degenerative Joint Disease I identified the patient and participated in the time-out.: Yes Procedure Operation Date: 12/01/19 07:00 Actual Procedures p Left Total Knee Arthroplasty(Left) - Rinku Lieberman MD Surgeon Rinku Lieberman Mica Splitter luis enrique/ac/tabatha Estimated Blood Loss 50 Findings Consistent with Post-Op Diagnosis Specimens none Anesthesia Type Spinal Disposition Accompanied Patient To Recovery: Yes Disposition: Recovery Room Description of Procedure as per dr Lieberman's note, I assisted in scrubbing and draping, instruments handling, certain parts of the procedure and wound closure. I attest to the content of the Intraoperative Record and any orders documented therein. Any exceptions are noted below.
== END 2019-12-02 12:52 | disposition home health service (06) ==
LOC: 3E 05:14 → ASU 05:14

== ENCOUNTER 2022-02-13 05:22 | Observation (INO) ==
--- NOTE | 2022-01-31 15:30 | PAT Medication Instructions ---
Medication Instructions Date of Service January 31, 2022 Home Medications Medication Instructions Recorded linaclotide 72 mcg capsule 72 mcg PO DAILY #30 caps 12/04/21 (Linzess) plecanatide 3 mg tablet (Trulance) 3 mg PO DAILY #30 tabs 01/28/22 acetaminophen 500 mg tablet (Tylenol Extra Strength) 1,000 mg PO UD albuterol sulfate 90 mcg/actuation aerosol inhaler (ProAir HFA) 2 puff inhalation QID PRN atenolol 25 mg tablet 25 mg PO QAM fluticasone 250 mcg-salmeterol 50 mcg/dose blistr powdr for inhalation 1 inh inhalation QPM levothyroxine 100 mcg capsule 100 mcg PO QAM multivitamin 1 tab PO QAM linaclotide 72 mcg capsule (Linzess) 72 mcg PO DAILY L. crispatus, gasseri, jensenii, rhamnosus 12 billion cell chew tablet 1 tab PO QAM plecanatide 3 mg tablet (Trulance) 3 mg PO DAILY potassium citrate 99 mg capsule 99 mg PO QAM furosemide 40 mg tablet (Lasix) 40 mg PO QAM DO NOT take the morning of surgery multivitamin 1 tab PO QAM linaclotide 72 mcg capsule (Linzess) 72 mcg PO DAILY L. crispatus, gasseri, jensenii, rhamnosus 12 billion cell chew tablet 1 tab PO QAM plecanatide 3 mg tablet (Trulance) 3 mg PO DAILY potassium citrate 99 mg capsule 99 mg PO QAM furosemide 40 mg tablet (Lasix) 40 mg PO QAM Take morning of surgery With a small sip of water, OTHERWISE NOTHING TO EAT OR DRINK AFTER MIDNIGHT: acetaminophen 500 mg tablet (Tylenol Extra Strength) 1,000 mg PO UD albuterol sulfate 90 mcg/actuation aerosol inhaler (ProAir HFA) 2 puff inhalation QID PRN(use if needed; please bring with you to hospital day of surgery if possible) atenolol 25 mg tablet 25 mg PO QAM levothyroxine 100 mcg capsule 100 mcg PO QAM Take evening before surgery albuterol sulfate 90 mcg/actuation aerosol inhaler (ProAir HFA) 2 puff inhalation QID PRN(if needed) fluticasone 250 mcg-salmeterol 50 mcg/dose blistr powdr for inhalation 1 inh inhalation QPM Other Notes If you have any questions please call us at [phone] or [phone] or [phone] or [phone]
--- NOTE | 2022-02-04 11:30 | Anesthesiology Consultation ---
Date of Service February 04, 2022 Assessment & Plan (1) Encounter for pre-operative examination: - COVID screening: Per assessment on 02/04: No known COVID-19 positive contacts or current COVID-19 related symptoms. Travel screen negative. At surgeon discretion if preop Covid testing being done. - Outpatient joint assessment: Pt currently scheduled for inpatient pathway. If surgeon requests review for outpatient joint pathway, patient is not recommended candidate for outpatient joint program from anesthesia standpoint. - S/P Left TKA (12/01/19): SAB at L3/4 (x2 attempts) + PNB at [facility]. No issues noted per post-op anesthesia progress note. - PCP office visit (01/18/22): "Patient medically optimized for right knee replacement and cleared if also cleared by cardiology. Would recommend CXR prior to surgery, which isak most likely be completed with preadmission testing." - Cardiology office visit (01/22/22): "Approximately a year ago she had total knee replacement on the left which was non complicated. She then scheduled herself to have a right total knee replacement. Unfortunately she developed COVID in had to put off this surgery. It has been rescheduled for later this month. She has a history of paroxysmally atrial tachycardia which has been ef fectively treated with atenolol. She has had no recent recurrence... Utilizing the Miguel A criteria, the patient's risk for this surgery for cardiovascular event is 0.4%. It may be a little higher just because of her obesity and COPD however, she currently is optimally medically managed and should proceed to surgery. No additional cardiac testing will change this risk assessment. She will have follow-up again with us in 6 months or earlier if needed." Chart Review Chart Review: Acceptable Risk for Surgery (pending evaluation AM DOS) and Patient seen in Pre Admission Testing Teaching & Discussion Pre-Anesthesia Teaching/Discussion Notes: Instructed NPO after midnight before surgery,except medications with 15 cc of water. Medication instructions provided according to the PAT guidelines. History Surgery Operation Date: 02/13/22 07:00 Proposed Procedures p Right Total Knee Arthroplasty - Rinku Lieberman MD Height/Weight Height: 5 ft 6 in Weight: 133.2 kg Allergies Allergy/AdvReac Type Severity Reaction Status Date / Time varenicline AdvReac Intermediate nightmares Verified 01/31/22 14:09 Medications Home Medications Medication Instructions Recorded Confirmed Last Taken acetaminophen 500 mg tablet 1,000 mg PO UD 07/01/19 01/31/22 12/03/21 (Tylenol Extra Strength) albuterol sulfate 90 mcg/actuation 2 puff inhalation QID PRN 07/01/19 01/31/22 Unknown aerosol inhaler (ProAir HFA) Shortness Of Breath Or Wheezing atenolol 25 mg tablet 25 mg PO QAM 07/01/19 01/31/22 12/03/21 fluticasone 250 mcg-salmeterol 50 1 inh inhalation QPM 07/01/19 01/31/22 12/04/21 06:00 mcg/dose blistr powdr for inhalation levothyroxine 100 mcg capsule 100 mcg PO QAM 07/01/19 01/31/22 12/03/21 multivitamin 1 tab PO QAM 07/01/19 01/31/22 12/03/21 linaclotide 72 mcg capsule 72 mcg PO DAILY #30 caps 12/04/21 01/31/22 Unknown (Linzess) L. crispatus, gasseri, jensenii, 1 tab PO QAM 01/28/22 01/31/22 Unknown rhamnosus 12 billion cell chew tablet plecanatide 3 mg tablet (Trulance) 3 mg PO DAILY #30 tabs 01/28/22 01/31/22 Unknown potassium citrate 99 mg capsule 99 mg PO QAM 01/28/22 01/31/22 Unknown furosemide 40 mg tablet (Lasix) 40 mg PO QAM 01/31/22 01/31/22 Unknown lubiprostone 8 mcg capsule 8 mcg PO BID #60 caps 02/01/22 Unknown (Amitiza) Past Medical History Medical History Chronic back pain LBP Chronic obstructive pulmonary disease Stable History of COVID-19 Dx 2020- loss of appetite, sob, fever > resolved Hypothyroidism IBS (irritable bowel syndrome) Morbid obesity Osteoarthritis Paroxysmal atrial tachycardia Remote hx- takes atenolol Follows with [facility] Paroxysmal SVT (supraventricular tachycardia) Remote hx- takes atenolol Follows with [facility] Exercise / Class Metabolic Activity III < 4 Walking/Shop/Light housework (one FS (no CP, + SOB)) Past Family History Family History Grandmother (Maternal) Family history of diabetes mellitus Aunt Family history of diabetes mellitus Other No family history of adverse response to anesthesia Past Surgical History Surgical History History of anesthesia reaction Awareness during hip replacement History of bilateral tubal ligation History of colonoscopy 12/04/21: MAC at [facility] History of left knee replacement Left TKA (12/01/19): SAB at L3/4 (x2 attempts) + PNB at [facility]. No issues noted per post-op anesthesia progress note. History of total hip arthroplasty R/L Hx of breast biopsy Bilateral breast > benign Past Anesthesia History No Family Hx of Anesthesia Complications and Other (Awareness with hip, no similar issue with subsequent Left TKA (done 2019)) History of PONV No Hx of PONV and Hx of Motion Sickness (+ boats) Social History Smoking Status: Former smoker tobacco type: cigarettes Do You Dip or Chew Tobacco: No Smoking End Date: Quit 10 years ago Hx Alcohol Use: Yes Alcohol type: beer alcohol intake frequency: holidays/special occasions only Hx Substance Use: No substance use type: does not use Review of Systems COPD- breathing stable, no recent flares. Patient denies chest pain, shortness of breath, fever, chills, cough, wheezing, palpitations. Physical Exam Vital Signs VITALS BP 114/78 P 67 TEMP 98.7 SP02 96%RA RESP 20 PHYSICAL Full cervical extension range of motion. Full TMJ range of motion. TMD 3.5 finger breaths Mallampati Score 1 Dentition: several missing including sides Lungs: clear throughout to auscultation Cardiac: regular rate and rhythm, no murmurs noted Spine: normal Carotid arteries: negative bruit Extremities: no edema Lab Results Anesthesia Preop Results Results Anesthesia Widget: WBC 6.56 K/ul (4.8-10.8) 02/04/22 Hgb 14.9 g/dl (12.0-16.0) 02/04/22 Hct 44.7 % (34.1-44.9) 02/04/22 Plt 294 K/uL (130-400) 02/04/22 Na 140 mmol/L (136-145) 02/04/22 K 4.2 mmol/L (3.5-5.1) 02/04/22 Cl 104 mmol/L (98-107) 02/04/22 CO2 33 mmol/L (21-32) H 02/04/22 BUN 15 mg/dl (6-23) 02/04/22 Creat 0.66 mg/dl (0.6-1.2) 02/04/22 Glucose Level 93 mg/dl (70-99(Fasting)) 02/04/22 PT 11.0 Seconds (9.0-12.0) 02/04/22 PTT 27.4 Seconds (21.0-31.0) 02/04/22 INR 1.0 (0.9-1.1) 02/04/22 Urine Color Yellow 02/04/22 Urine Appearance Clear (Clear) 02/04/22 Urine pH 5.5 (4.5-7.5) 02/04/22 Urine Specific [place] 1.007 (1.000-1.030) 02/04/22 Urine Protein Negative (Negative) 02/04/22 Urine Glucose (UA) Negative (Negative) 02/04/22 Urine Ketones Negative (Negative) 02/04/22 Urine Blood Negative (Negative) 02/04/22 Urine Nitrite Negative (Negative) 02/04/22 Urine Bilirubin Negative (Negative) 02/04/22 Urine Urobilinogen Negative (Negative) 02/04/22 Urine Leukocyte Esterase Trace (Negative) H 02/04/22 Urine WBC (Auto) 1-5 /hpf (0-5) 02/04/22 Urine RBC (Auto) 0-4 /hpf (0-4) 02/04/22 Urine Hyaline Casts (Auto) 0 /lpf (0-5) 02/04/22 Urine Epithelial Cells (Auto) 5-10 /lpf (0-5) H 02/04/22 Urine Bacteria (Auto) Negative (Negative) 02/04/22 Blood Type O Positive 02/04/22 Antibody Screen NEGATIVE 02/04/22 Testing Electrocardiogram Date: 01/22/22 Findings: + SB @ (58) Chest X-Ray Date: 02/04/22 FINDINGS: The lungs are clear. The cardiac silhouette is normal in size. No pleural effusions. No pneumothorax. No evidence for pulmonary edema. Mild anterior wedging within the mid thoracic spine vertebral body which has progressed. This is technically age indeterminate but likely chronic. IMPRESSION: No acute process within the chest. Mild anterior wedging within the mid thoracic spine vertebral body which has progressed. This is technically age indeterminate but likely chronic. Echocardiogram Date: 06/17/19 LVEF 60 to 64%. No regional motion abnormality. Mild LAE. Grade 1 diastolic dysfunction. No significant valvular disease. Stress Test Date: 06/17/19 Type: nuclear 71% MPHR. Gated SPECT imaging revealed normal myocardial thickening and wall motion. LVEF calculated to be 70%. Overall this pharmacologic nuclear stress test reveals a small infarct of the distal anterior septum with mild todd- infarct ischemia per report. Reviewed by cardiology for 2020 preop evaluation. Per cardio note (06/18/19): "Please let patient know that I reviewed her stress test results. There was a very small imaging abnormality in the one part of the heart. This could suggest either a small old heart attack or possibly movement artifact, which is common. There was normal wall motion and thickness in this area, suggesting this may not be an old NE but rather artifact. She also had an echo with normal wall motion and no evidence of prior NE. At this time, I do not believe further imaging or work up is needed. She should call the office with any new complaints of chest pain or worsening symptoms. She may proceed with elective orthopedic surgery with low to moderate risk of cardiac complications. No further cardiac testing warranted at this time." COVID-19 Risk Screen Screening Information COVID-19 Screen Date: 02/04/22 Exposure 21 Days Family/Household +COVID Last 21 Days: No Exposure 10 Days Any COVID Exposure Last 10 Days: No Symptoms Last 10 Days Experienced COVID Sx Last 10 Days: No + COVID 0-90 Days COVID + in Last 0-90 Days: No
--- NOTE | 2022-02-13 05:47 | History & Physical Bridge Note ---
Date of Service February 13, 2022 History & Physical Bridge Note I have examined the patient, reviewed the History & Physical and in the interval since the performance of the History & Physical I have noted the following changes of clinical significance: no changes noted
[2022-02-13] MEDS ORDERED: TRANEXAMIC ACID 1,000 MG **IV Pre-op IV SCH (06:00)
[2022-02-13] MEDS ORDERED: ROPIVACAINE 0.5% HCL/PF 150 MG, BUPIVACAINE 0.75% MPF 20 ML, EPINEPHrine 0.15 MG, Ketor... INFIL SCH (06:00)
[2022-02-13] MEDS ORDERED: LR 500ML BOLUS, THEN 15ML/HR IV SCH (06:00)
[2022-02-13] MEDS ORDERED: LR 60ML/HR IV SCH (06:00)
[2022-02-13] MEDS ORDERED: ROPIVACAINE 0.5% 5 MG/ML 30 ML VIAL ONE (06:27)
[2022-02-13] MEDS ORDERED: BUPIVACAINE 0.5 % 5 MG/1 ML PF 10ML VIAL ONE (06:27)
[2022-02-13] MEDS ORDERED: EPINEPHrine INJ 1 MG/ML AMP ONE (06:27)
[2022-02-13] MEDS ORDERED: fentaNYL citrate 100 MCG/2 ML VIAL ONE (06:29)
[2022-02-13] MEDS ORDERED: MIDAZOLAM HCL 1 MG/ML 2ML VIAL ONE (06:30)
[2022-02-13] MEDS ORDERED: LIDOCAINE 2% MPF LOCAL 5 ML VIAL INFIL ONE (06:35)
[2022-02-13] MEDS ORDERED: PROPOFOL IV EMULSION 10 MG/ML 20 ML VIAL IV ONE ×2 (06:35→08:15)
[2022-02-13] MEDS ORDERED: ORTHO JOINT ANESTHETIC ONE (06:38)
[2022-02-13] MEDS ORDERED: ONDANSETRON INJ 2 MG/ML 2 ML VIAL ONE (07:04)
[2022-02-13] MEDS ORDERED: DEXAMETHASONE SOD INJ 4 MG/ML VIAL ONE (07:04)
[2022-02-13] MEDS ORDERED: KETAMINE 50 MG/5 ML SYRINGE ONE (07:08)
[2022-02-13] MEDS ORDERED: HYDROmorphone INJ 1 MG/ML SYRINGE IV PRN (07:57)
[2022-02-13] MEDS ORDERED: ePHEDrine sulfate 50 MG/ML AMP IV PRN (07:57)
[2022-02-13] MEDS ORDERED: ONDANSETRON INJ 2 MG/ML 2 ML VIAL IV PRN ×2 (07:57→10:26)
[2022-02-13] MEDS ORDERED: ATROPINE SULFATE 0.1 MG/ML 10ML SYR IV PRN (07:57)
[2022-02-13] MEDS ORDERED: fentaNYL citrate 100 MCG/2 ML VIAL IV PRN (07:57)
[2022-02-13] MEDS ORDERED: NALOXONE HCL 0.4 MG/1 ML VIAL/CARP IV PRN ×2 (07:57→10:26)
[2022-02-13] MEDS ORDERED: PROMETHAZINE HCL 12.5 MG in SODIUM CHLORIDE 0.9% 50 ML IV PRN (07:57)
[2022-02-13] MEDS ORDERED: FLUMAZENIL 0.1 MG/1 ML 10 ML VIAL IV PRN (07:57)
--- NOTE | 2022-02-13 08:33 | Post Operative Brief Note ---
Immediate Post Op Note v1 Date of Surgery February 13, 2022 Pre & Post Diagnosis Operation Date: 02/13/22 07:00 Pre-Op Diagnosis: Right Knee Degenerative Joint Disease Post-Op Diagnosis: Right Knee Degenerative Joint Disease I identified the patient and participated in the time-out.: Yes Procedure Operation Date: 02/13/22 07:00 Actual Procedures p Right Total Knee Arthroplasty(Right) - Rinku Lieberman MD Surgeon Rinku Lieberman MD [facility] Est[facility] Blood Loss 75 Findings Consistent with Post-Op Diagnosis
--- NOTE | 2022-02-13 08:36 | Operative Report ---
Post Operative Report Pre & Post Diagnosis Operation Date: 02/13/22 07:00 Pre-Op Diagnosis: Right Knee Degenerative Joint Disease Post-Op Diagnosis: Right Knee Degenerative Joint Disease I identified the patient and participated in the time-out.: Yes Procedure Operation Date: 02/13/22 07:00 Actual Procedures p Right Total Knee Arthroplasty(Right) - Rinku Lieberman MD Surgeon ERIN Lieberman MD Medical Transcriber Sandra SNOW Estimated Blood Loss 75 Findings Consistent with Post-Op Diagnosis see operative report Specimens see operative report Drains none Complications none Disposition Accompanied Patient To Recovery: Yes Indications This 61 year old female presented to the office with complaints of persisting right knee pain. She had tried conservative care measures without improvement. She has a history of previous left total knee arthroplasty done 2 years ago and has done well with it. She elected to proceed with the same on the right. Preoperative imaging was obtained. Description of Procedure Patient was administered a spinal anesthetic and then taken to the operating room where she was given sedation. She was prepped and draped in the usual sterile fashion. Please see Dr. Lieberman's operative report for specifics of the procedure. I was present for the entire case from initial patient positioning through final wound closure. Assistance was provided in tissue retraction, hemostasis, trial implant placement, final implant placement, and final wound closure. Patient was taken to the recovery room in satisfactory condition. I attest to the content of the Intraoperative Record and any orders documented therein. Any exceptions are noted below.
--- NOTE | 2022-02-13 08:56 | XRay Report ---
XR knee RT 1 or 2V routine HISTORY: 61 years-old Female S/P R TKA right knee total joint arthroplasty COMPARISON: 02/04/2022 TECHNIQUE: 2 views of the right knee FINDINGS: Total joint arthroplasty with patellar resurfacing. Anterior midline skin antonio are noted along wit h expected postoperative soft tissue swelling with deep tissue air. No acute fracture, alignment or u nexpected opaque foreign body. IMPRESSION: Total joint arthroplasty with expected postoperative changes. ACT 112: Negative or not required by law. The above report was generated using voice recognition software. It may contain grammatical, syntax o r spelling errors. Electronically signed by: Lawrence Killian M.D. 02/13/2022 8:54 AM
--- NOTE | 2022-02-13 08:59 | Progress Notes ---
SUBJECTIVE: Doing well status post right total knee replacement. She denies any chest pain, shortness of breath, fever, chills, nausea, vomiting or headache. She is awake, alert and oriented. OBJECTIVE: VITAL SIGNS: Stable. She is afebrile. Neurovascular check is limited by her spinal. Wound dressing clean, dry and intact. IMAGING: X-rays, AP and lateral, revealed anatomic alignment of the total knee replacement. No issu es noted. ASSESSMENT: Status post right total knee replacement. Continue with care pathway. Discharge to [facility] tomorrow. Job ID: [id number]
--- NOTE | 2022-02-13 09:08 | Discharge Summary (DS) ---
DATE OF ADMISSION: 02/13/2022. DATE OF DISCHARGE: 02/14/2022. CHIEF COMPLAINT: Right knee pain. HISTORY OF PRESENT ILLNESS: The patient underwent elective right total knee replacement. HOSPITAL COURSE: To date has been uneventful. PAST MEDICAL HISTORY: Include COPD, obesity, chronic low back pain, hypothyroidism, osteoarthritis, irritable bowel syndrome. PAST SURGICAL HISTORY: Include total hip replacement and total knee replacements on the left and bila teral hips. PREADMISSION MEDICATIONS: Include albuterol, atenolol, Advair Diskus, furosemide, levothyroxine, Cla ritin, potassium chloride, and Linzess. ALLERGIES: None. SOCIAL HISTORY: Reveals that she smoked for roughly 38 years, quit about 10 years ago. She has soci al alcohol only. She denies any other drug use. FAMILY HISTORY: Noncontributory. ASSESSMENT: Status post right total knee replacement. Continue with postoperative care pathway. Di scharge to home tomorrow. Placed Prevena dressing change postop. Job ID: [id number]
--- NOTE | 2022-02-13 09:13 | Operative Report (OR) ---
DATE OF PROCEDURE: 02/13/2022. SURGEON: Rinku Lieberman MD. REPAIR DEPARTMENT SUPERVISOR: Nickolas Flores PA-C. No resident or fellow available. PREOPERATIVE DIAGNOSIS: Osteoarthritis with flexion varus deformity, right knee. POSTOPERATIVE DIAGNOSIS: Osteoarthritis with flexion varus deformity of right knee. OPERATION PERFORMED: Cemented right total knee replacement. SUMMARY OF IMPLANTS: Size 4 right femur posterior cruciate substituting, size 4 mobile bearing tray, size 41 patella, size 4 x 12.5 insert, 2 bags of Palacos G cement. These were all J [employer] DePuy rot ating platform knee implants. ESTIMATED BLOOD LOSS: 75 mL or less. CRYSTALLOID: Per anesthesia. PATHOLOGY: Pending on bone. DVT PROPHYLAXIS: Per protocol. PERIOPERATIVE SITUATION: Medically cleared female with intractable knee pain and her opposite side d one as well as her hip. She knows and understands the risks and consequences. She has a high BMI, p utting her at an elevated risk. DESCRIPTION OF PROCEDURE: The patient was appropriately identified, site verified, consent verified. Antibiotics were confirmed as being given. The right lower extremity was prepped and draped in the usual routine fashion. Tourniquet utilized 300 mmHg with total tourniquet time of roughly 52 minute s. Midline exposure was utilized. Parapatellar arthrotomy performed. Osteophytes resected. Synove ctomy completed. Appropriate releases performed. Distal femur entered. Cruciates resected. Tibia was subluxated, menisci resected. Distal femur resected 14 mm, proximal tibia 4 mm, the extension gap was excellent. The femur was sized between a 5 and a 4, was measured 5, cut 4. No notching occurred. Flexion gap w as checked, it was excellent. The tibia was again cut 4 mm. Once the distal femur, and the anterior , posterior condylar and chamfer cuts were then made, the flexion gap was checked, it was excellent. Box cut was then made, and a size 4 fit well. The tibia was then broached and reamed to a 4 and devonte ropriate spacer placed, 12.5 provided excellent stability and full range of motion. Patella was then everted and resected leaving 15 mm. A 41 patella button seated, it tracked well. All trial implant s were then removed. The wound was irrigated with Betadine for 3 minutes and then pulsavaced and the n the permanent cemented into position. The tibia, femur, and patella in that order. At 12 minutes, the tourniquet deflated. At 14 minutes, knee was flexed. No cement removal was required. The trial implant was removed. The wound was irrigated with Betadine and then the permanent liner seated. Th e knee reduced and closed at 40 degrees of flexion with #2 Vicryl, 2-0 Vicryl and stainless steel cli ps. Appropriate dressing applied. The patient was transferred to recovery room in satisfactory cond ition, having tolerated the procedure well. Job ID: [id number]
--- NOTE | 2022-02-13 09:59 | Anesthesiology Progress Note ---
Date of Service February 13, 2022 Anesthesia Post Procedure Vital Signs Vital Signs: Temp Pulse Pulse Resp BP Pulse Ox O2 Del Method 02/13/22 09:35 57 L 16 113/58 L 94 Room Air 02/13/22 09:25 58 L 13 106/59 L 91 Room Air 02/13/22 08:55 61 14 107/58 L 98 Oxymask 02/13/22 09:45 69 16 100/62 94 Room Air 02/13/22 09:15 36.4 C L 58 L 12 111/54 L 95 Room Air 02/13/22 09:05 64 15 110/69 95 Room Air 02/13/22 08:45 66 13 111/63 98 Oxymask 02/13/22 08:35 36.4 C L 82 16 109/55 L 96 Oxymask 02/13/22 06:02 36.7 C 77 20 134/73 95 Room Air 02/13/22 06:02 Room Air O2 Flow Rate 02/13/22 09:35 02/13/22 09:25 02/13/22 08:55 2 02/13/22 09:45 02/13/22 09:15 02/13/22 09:05 02/13/22 08:45 3 02/13/22 08:35 5 02/13/22 06:02 02/13/22 06:02 Transfer of Care Handoff Completed per policy Notes Mental Status: alert / awake / arousable Patient Amnestic to Procedure: Yes Nausea / Vomiting: adequately controlled Pain: adequately controlled Airway Patency, RR, SpO2: stable & adequate BP & HR: stable & adequate Hydration State: stable & adequate Neuraxial Anesthesia: was administered and sensory block is resolving Anesthetic Complications: no major complications apparent
[2022-02-13] MEDS ORDERED: oxyCODONE HCL IR 5 MG TAB (IMMEDIATE RELEASE) PO PRN (10:26)
[2022-02-13] MEDS ORDERED: HYDROmorphone INJ 0.5 MG/0.5 ML SYR IV PRN (10:26)
[2022-02-13] MEDS ORDERED: ALUMINUM/MAGNESIUM SUSP 30 ML UDC PO PRN (10:26)
[2022-02-13] MEDS ORDERED: diphenhydrAMINE 50 MG/ML VIAL IV PRN (10:26)
[2022-02-13] MEDS ORDERED: bisacodyL 10 MG SUPP PR PRN (10:26)
[2022-02-13] MEDS ORDERED: ALBUTEROL HFA 8 GM INHALER INH PRN (10:26)
[2022-02-13] MEDS ORDERED: MAGNESIUM HYDROXIDE SUSP 30 ML UDC PO PRN (10:26)
[2022-02-13] MEDS ORDERED: VANCOMYCIN CONSULT ACTIVE PRN (10:26)
[2022-02-13] MEDS ORDERED: METOCLOPRAMIDE HCL INJ 5 MG/ML 2 ML VIAL IV PRN (10:26)
[2022-02-13] MEDS ORDERED: SODIUM CHLORIDE 0.9% 1000ML 1,000 ML IV SCH (11:00)
[2022-02-13] MEDS ORDERED: VANCOMYCIN HCL 2,000 MG in SODIUM CHLORIDE 0.9% 500 ML IV ONE (11:00)
[2022-02-13] MEDS: ATENOLOL 25 MG TABLET PO SCH (11:37)
[2022-02-13] MEDS: DOCUSATE SODIUM 100 MG CAP PO SCH ×2 (11:38→19:38)
[2022-02-13] MEDS: linaCLOtide 72 MCG CAPSULE PO SCH (11:38)
[2022-02-13] MEDS: MULTIVITAMIN TAB PO SCH (11:40)
[2022-02-13] MEDS: KETOROLAC TROMETHAMINE 15 MG/ML VIAL IV SCH ×3 (11:41→22:09)
[2022-02-13] MEDS: ACETAMINOPHEN 500 MG TAB PO SCH ×2 (13:52→22:10)
[2022-02-13] MEDS: FUROSEMIDE 40 MG TAB PO SCH (13:52)
[2022-02-13] MEDS ORDERED: ORTHO WARFARIN NOMOGRAM SCH (14:00)
[2022-02-13] MEDS ORDERED: TRANEXAMIC ACID / 0.7% NACL 1,000 MG/100 ML BAG IV SCH (14:45)
[2022-02-13] MEDS: ceFAZolin 2000MG 2,000 MG/15 ML SYR IV SCH ×2 (16:00→22:09)
[2022-02-13] MEDS ORDERED: WARFARIN SOD 5 MG TAB PO ONE (16:30)
[2022-02-13] MEDS: ASCORBIC ACID 500 MG TAB PO SCH (17:56)
[2022-02-13] MEDS: FERROUS GLUCONATE 324 MG TAB PO SCH (17:56)
[2022-02-13] MEDS ORDERED: FLUTICASONE/VILANTEROL 100/25MCG 14 PUFFS/INHALER INH SCH (21:00)
[2022-02-13] MEDS ORDERED: SENNA 8.6 MG TAB PO SCH (21:00)
[2022-02-14] MEDS: KETOROLAC TROMETHAMINE 15 MG/ML VIAL IV SCH (05:30)
[2022-02-14] MEDS: ACETAMINOPHEN 500 MG TAB PO SCH (06:12)
[2022-02-14] MEDS ORDERED: LEVOTHYROXINE SODIUM 100 MCG TABLET PO SCH (06:30)
[2022-02-14 07:18] LABS: Hematocrit (blood only) 40.7 % (34.1-44.9); Hemoglobin 13.5 g/dl (12.0-16.0); Mean Corpuscular Hemoglobin 32.3 pg (25.0-34.0); Mean Corpuscular Hgb Conc 33.2 g/dL (32.0-36.0); Mean Corpuscular Volume 97.4 fL (80.0-100.0); Platelet Count 278 K/uL (130-400); RDW Coefficient of Variation 12.7 % (11.5-14.5); RDW Standard Deviation 44.9 fL (36.4-46.3); Red Blood Count 4.18 M/uL (3.93-5.22); White Blood Count 12.22 K/ul (4.8-10.8)
[2022-02-14 07:27] LABS: INR 1.1 (0.9-1.1); Prothrombin Time 11.5 Seconds (9.0-12.0)
[2022-02-14 07:38] LABS: BUN Creatinine Ratio 25.8 (10-20); Calcium 9.7 mg/dl (8.5-10.1); Creatinine Clr Calc Pharmacy 124.6 ml/min; Est GFR (African American) 109.7 ml/min; Est GFR (Non-African American) 94.7 ml/min; Potassium 4.6 mmol/L (3.5-5.1)
[2022-02-14] MEDS: FERROUS GLUCONATE 324 MG TAB PO SCH (07:44)
[2022-02-14] MEDS: ASCORBIC ACID 500 MG TAB PO SCH (07:44)
--- NOTE | 2022-02-14 07:44 | Orthopedic Progress Note ---
Date of Service February 14, 2022 Assessment & Plan (1) S/P total knee arthroplasty: Plan: Pt is doing great. She will be d/c home today w/ home health services including PT Provena wound vac Placed. She was advised on keeping area clean, she will return to the office in 7 days for removal of this. She was advised on continuing the knee immobilizer while out of bed w/ ambulating and may discharge this on Friday She was sent warfarin for DVT prophylaxis advised on taking this as prescribed and INR will be monitored She was sent oral pain medication advised on taking as prescribed Cont to use ice to the knee as needed x20 min daily She has follow up scheduled if any concerns she will contact the office sooner Advised if any concerns to contact the office, pt verbalized understanding and is in agreement with plan Admission and Anticipated Discharge Date Admission Date: February 13, 2022 Subjective Pt is a 61 y.o female who is s/p a Right TKA post op day #1. She was seen bedside this am approximately 7 am. She is in good spirits and states she is ready to gohome. She states she has pain that is 3/10 in right knee. She states her pain is controlled with her pain medication. she denies any fever, chills, Chest pain, shortness of breath or calf pain. She offers no concerns. Review of Systems Review of Systems: Please refer to H&P Physical Exam Physical Exam: General: Alert and oriented x3 pleasant Musculoskeletal: dressing is in place. this was removed.Neg for any active drainage scant amount dry on dressing. Incision is well approximated neg for any drainage or erythema. Pt is able to actively flex the knee to approx 50 degrees and has full extension. Calf is soft and nontender. neg lucille sign. DP 2+ RLE is NVI Integumentary: normal in color and temperature. neg for edema or ecchymosis Results & Data ([facility]) Vital Signs (Past 12 Hours) Vital Signs Temp Pulse Resp BP Pulse Ox O2 Del Method 02/13/22 19:38 Room Air 02/13/22 22:12 36.7 C 72 17 119/69 93 Room Air 02/13/22 19:52 36.5 C 72 17 106/62 93 Room Air
[2022-02-14] MEDS: ATENOLOL 25 MG TABLET PO SCH (07:47)
[2022-02-14] MEDS: DOCUSATE SODIUM 100 MG CAP PO SCH (07:48)
[2022-02-14] MEDS: FUROSEMIDE 40 MG TAB PO SCH (07:48)
[2022-02-14] MEDS: linaCLOtide 72 MCG CAPSULE PO SCH (07:48)
[2022-02-14] MEDS: MULTIVITAMIN TAB PO SCH (07:48)
[2022-02-14] MEDS ORDERED: dexAMETHasone 10 MG in SYRINGE 0 ML IV SCH (08:00)
[2022-02-14] MEDS ORDERED: PERCOCET 5/325MG HOMEPACK PO ONE (08:36)
[2022-02-14] MEDS ORDERED: WARFARIN SOD 5 MG TAB PO ONE (09:00)
--- NOTE | 2022-02-14 09:10 | Progress Notes ---
DATE OF SERVICE: 02/13/2022. SUBJECTIVE: Postoperative day #1, status post right knee replacement. The patient is doing well. Denies any chest pain, shortness of breath, fever, chills, nausea, vomiting or headache. OBJECTIVE: VITAL SIGNS: Stable. She is afebrile. Neurovascular check, femoral sciatic nerve is normal. Wound dressing clean, dry and intact. Change to wound VAC Prevena. Calves nontender. LABORATORY WORK: Reveals everything looks good that is back already. Hematocrit is 40. The electrolytes are pending. ASSESSMENT: Doing well. Discharged home today after PT/OT. Concerning Prevena wound VAC, advised to take Coumadin in the evening at home. We will get a dose today before leaving. Job ID: [id number] [facility]
[2022-02-14] MEDS ORDERED: ORTHO WARFARIN NOMOGRAM SCH (14:00)
== END 2022-02-14 10:42 | disposition home health service (06) ==
LOC: ASU 05:22 → 3E 05:22

== ENCOUNTER 2022-10-22 12:06 | Inpatient (IN) ==
--- NOTE | 2022-10-22 12:20 | Emergency Department Note ---
ED Provider Note History of Present Illness Chief Complaint: Abnormal Labs/Diagnostic Testing Stated Complaint: REF BY DOC,ABNORMAL EKG Home Medications Medication Instructions Recorded Confirmed Type albuterol sulfate 90 mcg/actuation 2 puff inhalation QID PRN 07/01/19 03/21/22 History aerosol inhaler (ProAir HFA) Shortness Of Breath Or Wheezing atenolol 25 mg tablet 25 mg PO QAM 07/01/19 03/21/22 History fluticasone 250 mcg-salmeterol 50 1 inh inhalation QPM 07/01/19 03/21/22 History mcg/dose blistr powdr for inhalation (Advair Diskus) levothyroxine 100 mcg capsule 100 mcg PO QAM 07/01/19 03/21/22 History multivitamin 1 tab PO QAM 07/01/19 03/21/22 History potassium citrate 99 mg capsule 99 mg PO QAM 01/28/22 03/21/22 History furosemide 40 mg tablet (Lasix) 40 mg PO QAM 01/31/22 03/21/22 History oxycodone-acetaminophen 5 mg-325 1 - 2 tab PO Q6H PRN pain #24 tabs 02/13/22 03/21/22 Rx mg tablet (Percocet) warfarin 2 mg tablet 4 mg PO DAILY #60 tabs 02/13/22 03/21/22 Rx lactulose 10 gram/15 mL oral 10 g (15 mL) PO DAILY #946 mL 03/29/22 Rx solution Allergies Allergy/AdvReac Type Severity Reaction Status Date / Time varenicline AdvReac Intermediate nightmares Verified 03/21/22 09:31 Past Med/Surg History Medical History Chronic back pain LBP Chronic obstructive pulmonary disease Stable History of COVID-19 Dx 2019- loss of appetite, sob, fever > resolved Hypothyroidism IBS (irritable bowel syndrome) Morbid obesity Osteoarthritis Paroxysmal atrial tachycardia Remote hx- takes atenolol Follows with [facility] Paroxysmal SVT (supraventricular tachycardia) Remote hx- takes atenolol Follows with [facility] Surgical History History of anesthesia reaction Awareness during hip replacement History of bilateral tubal ligation History of colonoscopy 12/04/21: MAC at [facility] History of left knee replacement Left TKA (12/01/19): SAB at L3/4 (x2 attempts) + PNB at [facility]. No issues noted per post-op anesthesia progress note. History of total hip arthroplasty R/L Hx of breast biopsy Bilateral breast > benign Family History Grandmother (Maternal) Family history of diabetes mellitus Aunt Family history of diabetes mellitus Other No family history of adverse response to anesthesia Social History Smoking Status: Former smoker Second Hand Exposure: No; Do You Dip or Chew Tobacco: No; Hx Alcohol Use: Yes Alcohol type: beer Hx Substance Use: No Preferred Language: Mexican Communication Ability: Effective Visual Impairment: No Limitations Voltage Inspector Required: No Beliefs That Will Affect Care: None marital status: Current Living Situation: Spouse Feels Safe at Home: Yes Assistive Devices: Walker Discharge Plan Visit Data Chief Complaint: Abnormal Labs/Diagnostic Testing Stated Complaint: REF BY DOC,ABNORMAL EKG ED Provider: MARY KATEED Forms Stand Alone Forms: [facility] Prescriptions Prescriptions: No Action lactulose 10 gram/15 mL solution 10 g PO DAILY Qty: 946 2RF potassium citrate 99 mg capsule 99 mg PO QAM atenolol 25 mg Tablet 25 mg PO QAM multivitamin Tablet 1 tab PO QAM levothyroxine 100 mcg Capsule 100 mcg PO QAM fluticasone propion-salmeterol [Advair Diskus] 250-50 mcg/dose Blister With Device 1 inh INHALATION QPM albuterol sulfate [ProAir HFA] 90 mcg/actuation Hfa Aerosol Inhaler 2 puff INHALATION QID PRN (Reason: Shortness Of Breath Or Wheezing) furosemide [Lasix] 40 mg Tablet 40 mg PO QAM oxycodone-acetaminophen [Percocet] 5-325 mg tablet 1 - 2 tab PO Q6H PRN (Reason: pain) Qty: 24 0RF Rx Instructions: initiating therapy for post op pain warfarin 2 mg tablet 4 mg PO DAILY Qty: 60 0RF Referrals Referrals: Chandler Michelle MD [Primary Care Provider] -
--- NOTE | 2022-10-22 12:24 | ED Triage Note ---
Date of Service October 22, 2022 History of Present Illness This patient was briefly evaluated while in triage. An abbreviated physical exam was performed. This patient is a 62-year-old Female who presents to the ED for evaluation of not feeling well since last . The patient reports that she has been sick. She was seen by her PCP (Dr. Chen) today, with an ECG showing atrial fibrillation with rapid ventricular response of 149 bpm. The patient drove to the emergency department for further evaluation. Patient did have some nausea and vomiting last , and over the weekend. The patient does report chest pressure and difficulty breathing, with a history of COPD. The patient reports that her inhalers are not working. Physical Exam CONSTITUTIONAL: Healthy and well nourished. Patient does not appear toxic. HEENT: No scleral icterus or conjunctival injection/pallor. LYMPHATICS: No cervical chain adenopathy. RESPIRATORY: Breath sounds are distant. CARDIOVASCULAR: Irregular tachycardic rhythm. INTEGUMENTARY: No rash or other significant dermatologic conditions noted. HEMATOLOGIC: No ecchymosis or petechiae. PSYCHIATRIC: Positive affect. NEUROLOGIC: No focal neurologic deficits noted. Initial orders for labs and / or imaging were placed and patient was placed in the waiting area until a bed is available. Please see further documentation for the full ED course.
[2022-10-22] MEDS ORDERED: SODIUM CHLORIDE 0.9% 1000ML 1,000 ML IV ONE ×2 (12:28→14:58)
[2022-10-22] MEDS ORDERED: CEFEPIME 2,000 MG/20 ML VIAL IV STA (12:29)
[2022-10-22] MEDS ORDERED: ACETAMINOPHEN 1,000 MG/100 ML VIAL IV STA (12:35)
[2022-10-22] MEDS ORDERED: ATENOLOL 25 MG TABLET PO STA (12:38)
--- NOTE | 2022-10-22 12:38 | Emergency Department Note ---
Impression & Plan SOB (shortness of breath), Pneumonia, Atrial fibrillation with rapid ventricular response, Leukocytosis ED Provider Note NAME: FLORY BUCKLEY AGE: 62 SEX: F : 1960 ARRIVES VIA: Walk-In INFORMANT: [Patient] ED PROVIDER(S): [Andreas Dumont MD] CHIEF COMPLAINT: Abnormal ECG HISTORY OF PRESENT ILLNESS: The patient is a 62-year-old female who states that 2 to 3 days ago, she had s ome vomiting and diarrhea. She began to feel unwell after but the diarrhea and vomiting quit. She has had some chills and sweats. No documented fever at home. She has noticed some right upper quadrant/right lower chest pain, the pain worsens to take a breath. This pain began today. She feels short of breath. There has been a slight increase in cough. No urinary complaints. No lower abdominal pain. No rash. No recent sick contacts. The patient went to her doctor's office, there she was found to be in a rapid A- fib, she has no history of A-fib. She was referred to the ED. Of note, the patient does not have chest pain. No palpitations. The patient admits she forgot to take her morning medications. PMHx/PSHx: See Below SOCIAL HISTORY: See Below. PHYSICAL EXAM: GENERAL: Patient is in no acute distress. HEENT: No acute trauma, normocephalic atraumatic, mucous membranes moist, no nasal congestion. NECK: No stridor, no adenopathy, no meningismus, trachea is midline. LUNGS: Diminished breath sounds bilaterally. No wheezing. No obvious respiratory distress HEART: Tachycardic and irregular, no murmurs. ABDOMEN: Soft, moderately tender in the right upper quadrant, no peritonitis, no abdominal distention. EXTREMITIES: No cyanosis or edema, full range of motion of all the joints without pain or difficulty, no signs for acute trauma. NEUROLOGIC: Oriented x 3, no acute motor or sensory deficits, no focal weakness. SKIN: No rash, no jaundice, no diaphoresis. DIFFERENTIAL DIAGNOSIS: Bacteremia or sepsis, diverticulitis, biliary colic, acute cholecystitis, pneumonia, viral illness, UTI, pyelonephritis, dysrhythmia, among others. EMERGENCY DEPARTMENT COURSE/PROCEDURES: Prior/Outside records reviewed: Outpatient Dr. Gan. ECG per my interpretation: Indication was tachycardia. The ECG shows atrial fibrillation with a rapid rate. The rate is 158. There is some nonspecific ST change. There is a potential old septal infarct. No ST elevation, no PVCs. The QTc is 415. Repeat ECG per my review: Indication was tachycardia. The ECG shows a sinus tachycardia with a rate of 112. There are no PVCs. No concerning ST elevation. QTc is 401. Compared to an ECG from earlier today, sinus rhythm is now present Continuous Cardiac Monitoring per my interpretation: An order was placed for continuous cardiac monitoring. The monitor shows a rate of 151 with rapid atrial fibrillation. Critical Care Note: I have personally spent 49 minutes of critical care time in the direct management of this patient. This includes bedside care, interpretation of diagnostic studies, and testing, discussion with consultants, patient, and family members, and other required patient management activities. This 49 minutes is in excess of all separately billable procedures. MEDICAL DECISION MAKING: There is a mild leukocytosis which could be consistent with infection. There was a normal hemoglobin. There was a normal platelet count. No coagulopathy. No renal failure or significant electrolyte abnormality. Lactic acid level was not elevated making severe sepsis less likely. There was no concerning liver enzyme elevation. No evidence for pancreatitis. The patient appeared to be in a euthyroid state. ECG shows rapid atrial fibrillation, no obvious ischemia. Cardiac enzyme testing x1 was not consistent with acute cardiac injury. Repeat ECG showed sinus tachycardia, the atrial fibrillation had resolved. Urinalysis does not show findings of infection. Respiratory bio fire was completely negative. Lyme disease testing was negative. Abdominal and pelvis CT shows a right lower lung pneumonia. No acute surgical process or infectious process by CT imaging. Chest film per my review shows a right lower lung infiltrate. Patient received IV saline, 2 L. The patient received this 2 L of IV saline as 30 cc/kg as per sepsis protocol based on her ideal body weight. She was given IV cefepime as empiric antibiotic coverage. She was given 25 mg of oral atenolol as she had missed this dose this morning. She was given IV Tylenol for her fever. The patient did convert spontaneously to a sinus tachycardia. She looks improved. She has done well with her medication regimen and IV hydration. The patient is in need of a hospital stay for cardiac monitoring, IV antibiotic therapy. I did speak with the patient at length, I spoke with case management, the on-call hospitalist was consulted. DISPOSITION: Patient's presentation and findings warrant a hospital stay. Past Med/Surg History Medical History Chronic back pain LBP Chronic obstructive pulmonary disease Stable History of COVID-19 Dx 2019- loss of appetite, sob, fever > resolved Hypothyroidism IBS (irritable bowel syndrome) Morbid obesity New onset a-fib Osteoarthritis Paroxysmal atrial tachycardia Remote hx- takes atenolol Follows with [facility] Paroxysmal SVT (supraventricular tachycardia) Remote hx- takes atenolol Follows with [facility] Pneumonia Sepsis Surgical History History of anesthesia reaction Awareness during hip replacement History of bilateral tubal ligation History of colonoscopy 12/04/21: MAC at [facility] History of left knee replacement Left TKA (12/01/19): SAB at L3/4 (x2 attempts) + PNB at [facility]. No issues noted per post-op anesthesia progress note. History of total hip arthroplasty R/L Hx of breast biopsy Bilateral breast > benign Family History Grandmother (Maternal) Family history of diabetes mellitus Aunt Family history of diabetes mellitus Other No family history of adverse response to anesthesia Social History Smoking Status: Former smoker Tobacco Type: Cigarettes Smoking End Date: 2007; Second Hand Exposure: No; Do You Dip or Chew Tobacco: No; Hx Alcohol Use: Yes Alcohol type: beer and hard liquor Hx Substance Use: No Preferred Language: [place] Communication Ability: Effective Visual Impairment: No Limitations Clinical Assistant Professor Required: No Beliefs That Will Affect Care: None marital status: Current Living Situation: Spouse Other Information That Helps Us Care for You: No Feels Safe at Home: Yes Safety Concerns: Feels Safe At This Time Assistive Devices: Glasses Allergies Allergies Allergy/AdvReac Type Severity Reaction Status Date / Time varenicline AdvReac Intermediate nightmares Verified 10/22/22 15:34 Home Meds Home Medications Medication Instructions Recorded Confirmed albuterol sulfate 90 mcg/actuation 2 puff inhalation Q6 PRN Wheezing 10/22/22 10/22/22 aerosol inhaler atenolol 25 mg tablet 25 mg PO DAILY 10/22/22 10/22/22 estradiol 0.01% (0.1 mg/gram) 1 appful vaginal 2XWK 10/22/22 10/22/22 vaginal cream fexofenadine 60 mg tablet 0 mg PO DAILY 10/22/22 10/22/22 fluticasone 250 mcg-salmeterol 50 1 ea inhalation BID 10/22/22 10/22/22 mcg/dose blistr powdr for inhalation (Wixela Inhub) furosemide 40 mg tablet 40 mg PO DAILY 10/22/22 10/22/22 lactobacillus combination no.4 3 0 mmu cells PO DAILY 10/22/22 10/22/22 billion cell capsule (Probiotic) levothyroxine 100 mcg tablet 100 mcg PO DAILYBB 10/22/22 10/22/22 liraglutide (weight loss) 3 mg/0.5 2.4 mg subcut DAILY 10/22/22 10/22/22 mL (18 mg/3 mL) subcut pen injector (Zayda) [id number] 1 tab PO DAILY 10/22/22 10/22/22 tablet (Multivitamin 50 Plus tablet) potassium 99 mg tablet 99 mg PO DAILY 10/22/22 10/22/22 Results & Data (ED) Vital Signs Vital Signs - 24 hr 10/22/22 12:20 10/22/22 12:44 10/22/22 12:47 Temperature 38.0 C H Temperature Source Temporal Artery Scan Pulse Rate 108 H 117 H Pulse Rate [Apical] Pulse Rate from SpO2 Sensor Respiratory Rate 18 Respiratory Effort / Characteristics Non-Labored Respiratory Depth Normal Respiratory Pattern Regular Blood Pressure 149/90 H Blood Pressure [Right Arm] Blood Pressure Mean 109 Blood Pressure Mean [Right Arm] Pulse Oximetry 94 98 Oxygen Delivery Method Room Air Room Air Sepsis Recent Fever Within 48 Hours No Sepsis New/Unexplained Change in Mental Status N/A Sepsis Action Taken by Nursing No Action Required 10/22/22 12:29 10/22/22 12:30 10/22/22 12:33 Temperature Temperature Source Pulse Rate 153 H 137 H Pulse Rate [Apical] Pulse Rate from SpO2 Sensor Respiratory Rate 21 18 Respiratory Effort / Characteristics Respiratory Depth Respiratory Pattern Blood Pressure 167/86 H Blood Pressure [Right Arm] Blood Pressure Mean 113 Blood Pressure Mean [Right Arm] Pulse Oximetry Oxygen Delivery Method Sepsis Recent Fever Within 48 Hours Sepsis New/Unexplained Change in Mental Status Sepsis Action Taken by Nursing 10/22/22 12:33 10/22/22 12:45 10/22/22 13:00 Temperature Temperature Source Pulse Rate 112 H 116 H 106 H Pulse Rate [Apical] Pulse Rate from SpO2 Sensor Respiratory Rate 21 Respiratory Effort / Characteristics Respiratory Depth Respiratory Pattern Blood Pressure Blood Pressure [Right Arm] Blood Pressure Mean Blood Pressure Mean [Right Arm] Pulse Oximetry Oxygen Delivery Method Sepsis Recent Fever Within 48 Hours Sepsis New/Unexplained Change in Mental Status Sepsis Action Taken by Nursing 10/22/22 13:03 10/22/22 13:03 10/22/22 13:24 Temperature Temperature Source Pulse Rate 102 H 103 H Pulse Rate [Apical] Pulse Rate from SpO2 Sensor 104 H Respiratory Rate Respiratory Effort / Characteristics Respiratory Depth Respiratory Pattern Blood Pressure 134/79 Blood Pressure [Right Arm] Blood Pressure Mean 97 Blood Pressure Mean [Right Arm] Pulse Oximetry 98 Oxygen Delivery Method Sepsis Recent Fever Within 48 Hours Sepsis New/Unexplained Change in Mental Status Sepsis Action Taken by Nursing 10/22/22 13:15 10/22/22 13:16 10/22/22 13:16 Temperature Temperature Source Pulse Rate 112 H 108 H Pulse Rate [Apical] Pulse Rate from SpO2 Sensor Respiratory Rate 20 20 Respiratory Effort / Characteristics Respiratory Depth Respiratory Pattern Blood Pressure 105/71 Blood Pressure [Right Arm] Blood Pressure Mean 82 Blood Pressure Mean [Right Arm] Pulse Oximetry Oxygen Delivery Method Sepsis Recent Fever Within 48 Hours Sepsis New/Unexplained Change in Mental Status Sepsis Action Taken by Nursing 10/22/22 13:30 10/22/22 14:38 10/22/22 16:13 Temperature Temperature Source Pulse Rate 106 H 94 H 89 Pulse Rate [Apical] Pulse Rate from SpO2 Sensor Respiratory Rate 20 20 18 Respiratory Effort / Characteristics Respiratory Depth Respiratory Pattern Blood Pressure 99/64 L Blood Pressure [Right Arm] Blood Pressure Mean 75 Blood Pressure Mean [Right Arm] Pulse Oximetry 96 Oxygen Delivery Method Room Air Sepsis Recent Fever Within 48 Hours Sepsis New/Unexplained Change in Mental Status Sepsis Action Taken by Nursing 10/22/22 16:13 10/22/22 15:58 10/22/22 17:22 Temperature 36.8 C Temperature Source Oral Pulse Rate 90 Pulse Rate [Apical] 90 94 H Pulse Rate from SpO2 Sensor Respiratory Rate 18 21 18 Respiratory Effort / Characteristics Respiratory Depth Respiratory Pattern Blood Pressure 110/66 Blood Pressure [Right Arm] 110/66 113/71 Blood Pressure Mean 80 Blood Pressure Mean [Right Arm] 80 85 Pulse Oximetry 100 98 99 Oxygen Delivery Method Room Air Room Air Sepsis Recent Fever Within 48 Hours Sepsis New/Unexplained Change in Mental Status Sepsis Action Taken by Nursing 10/22/22 17:45 Temperature Temperature Source Pulse Rate 96 H Pulse Rate [Apical] Pulse Rate from SpO2 Sensor Respiratory Rate Respiratory Effort / Characteristics Respiratory Depth Respiratory Pattern Blood Pressure Blood Pressure [Right Arm] Blood Pressure Mean Blood Pressure Mean [Right Arm] Pulse Oximetry Oxygen Delivery Method Sepsis Recent Fever Within 48 Hours Sepsis New/Unexplained Change in Mental Status Sepsis Action Taken by [facility] Medications Current Medication List: was personally reviewed by me Laboratory Data Attestation: I reviewed the patient's lab results. 10/22/22 12:39 10/22/22 12:39 Lab Results 10/22/22 10/22/22 10/22/22 Range/Units 12:39 12:39 12:39 WBC 13.89 H (4.8-10.8) K/ul RBC 4.73 (4.20-5.40) M/uL Hgb 15.1 (12.0-16.0) g/dl Hct 43.9 (37.0-47.0) % MCV 92.8 (80.0-100.0) fL MCH 31.9 (25.0-34.0) pg MCHC 34.4 (32.0-36.0) g/dL RDW Std Deviation 43.7 (36.4-46.3) fL RDW Coeff of Demarco 12.7 (11.5-14.5) % Plt Count 348 (130-400) K/uL MPV 8.9 L (9.4-12.4) fL Immature Gran % (Auto) 0.4 % Neut % (Auto) 83.8 % Lymph % (Auto) 5.5 % [place] % (Auto) 9.9 % Eos % (Auto) 0.1 % Baso % (Auto) 0.3 % Neut # (Auto) 11.65 H (1.40-6.50) K/uL Lymph # (Auto) 0.77 L (1.2-3.4) K/uL [place] # (Auto) 1.37 H (0.11-0.59) K/uL Eos # (Auto) 0.01 (0-0.50) K/uL Baso # (Auto) 0.04 (0-0.2) K/uL Immature Gran # (Auto) 0.05 (0.01-0.20) K/uL PT 12.3 H (9.0-12.0) Seconds INR 1.1 (0.9-1.1) APTT 28.8 (21.0-31.0) Seconds PTT Ratio 1.0 Sodium 134 L (136-145) mmol/L Potassium 3.9 (3.5-5.1) mmol/L Chloride 101 (98-107) mmol/L Carbon Dioxide 26 (21-32) mmol/L Anion Gap 7 (3-11) BUN 12 (6-23) mg/dl Creatinine 0.70 (0.6-1.2) mg/dl Est Cr Clr Drug Dosing 96.3 ml/min Est GFR ( Amer) 106.9 ml/min Est GFR (Non-Af Amer) 92.2 ml/min BUN/Creatinine Ratio 17.1 (10-20) Glucose 144 H (70-99(Fasting)) mg/dl Lactate (0.4-2.0) mmol/L Calcium 9.9 (8.6-10.3) mg/dl Magnesium 2.0 (1.7-2.4) mg/dl Total Bilirubin 0.8 (0.2-1.0) mg/dl AST 18 (13-39) U/L ALT 21 (7-52) U/L Alkaline Phosphatase 97 (34-104) U/L Troponin I High Sens 6.1 (0-14) pg/ml Total Protein 7.1 (6.0-8.3) gm/dl Albumin 3.6 (3.4-5.0) gm/dl Globulin 3.5 (2.5-4.0) gm/dl Albumin/Globulin Ratio 1.0 (0.9-2) Lipase 33 (11-82) U/L TSH (0.300-4.500) uIu/ml Urine Color Urine Appearance (Clear) Urine pH (4.5-7.5) Ur Specific [place] (1.000-1.030) Urine Protein (Negative) Urine Glucose (UA) (Negative) Urine Ketones (Negative) Urine Blood (Negative) Urine Nitrite (Negative) Urine Bilirubin (Negative) Urine Urobilinogen (Negative) Ur Leukocyte Esterase (Negative) Urine WBC (Auto) (0-5) /hpf Urine RBC (Auto) (0-4) /hpf U Hyaline Cast (Auto) (0-5) /lpf U Epithel Cells (Auto) (0-5) /lpf Urine Bacteria (Auto) (Negative) Adenovirus (PCR) (NotDetected) B. pertussis DNA (PCR) (NotDetected) B.parapertussis DNA PCR (NotDetected) Lyme Disease IgG Ab (Negative) Lyme Disease IgM Ab (Negative) C. pneumoniae DNA (PCR) (NotDetected) Coronavirus OC43 (PCR) (NotDetected) Coronavirus HKU1 (PCR) (NotDetected) Coronavirus 229E (PCR) (NotDetected) SARS-CoV-2 (PCR) (NotDetected) Coronavirus NL63 (PCR) (NotDetected) Human Metapneumovir PCR (NotDetected) Influenza Type A (PCR) (NotDetected) Influenza Type B (PCR) (NotDetected) M. pneumoniae (PCR) (NotDetected) Parainfluenza 1 (PCR) (NotDetected) Parainfluenza 2 (PCR) (NotDetected) Parainfluenza 3 (PCR) (NotDetected) Parainfluenza 4 (PCR) (NotDetected) RSV (PCR) (NotDetected) Entero/Rhino (PCR) (NotDetected) 10/22/22 10/22/22 10/22/22 Range/Units 12:39 12:39 12:39 WBC (4.8-10.8) K/ul RBC (4.20-5.40) M/uL Hgb (12.0-16.0) g/dl Hct (37.0-47.0) % MCV (80.0-100.0) fL MCH (25.0-34.0) pg MCHC (32.0-36.0) g/dL RDW Std Deviation (36.4-46.3) fL RDW Coeff of Demarco (11.5-14.5) % Plt Count (130-400) K/uL MPV (9.4-12.4) fL Immature Gran % (Auto) % Neut % (Auto) % Lymph % (Auto) % [place] % (Auto) % Eos % (Auto) % Baso % (Auto) % Neut # (Auto) (1.40-6.50) K/uL Lymph # (Auto) (1.2-3.4) K/uL [place] # (Auto) (0.11-0.59) K/uL Eos # (Auto) (0-0.50) K/uL Baso # (Auto) (0-0.2) K/uL Immature Gran # (Auto) (0.01-0.20) K/uL PT (9.0-12.0) Seconds INR (0.9-1.1) APTT (21.0-31.0) Seconds PTT Ratio Sodium (136-145) mmol/L Potassium (3.5-5.1) mmol/L Chloride (98-107) mmol/L Carbon Dioxide (21-32) mmol/L Anion Gap (3-11) BUN (6-23) mg/dl Creatinine (0.6-1.2) mg/dl Est Cr Clr Drug Dosing ml/min Est GFR ( Amer) ml/min Est GFR (Non-Af Amer) ml/min BUN/Creatinine Ratio (10-20) Glucose (70-99(Fasting)) mg/dl Lactate 1.6 (0.4-2.0) mmol/L Calcium (8.6-10.3) mg/dl Magnesium (1.7-2.4) mg/dl Total Bilirubin (0.2-1.0) mg/dl AST (13-39) U/L ALT (7-52) U/L Alkaline Phosphatase (34-104) U/L Troponin I High Sens (0-14) pg/ml Total Protein (6.0-8.3) gm/dl Albumin (3.4-5.0) gm/dl Globulin (2.5-4.0) gm/dl Albumin/Globulin Ratio (0.9-2) Lipase (11-82) U/L TSH 0.971 (0.300-4.500) uIu/ml Urine Color Urine Appearance (Clear) Urine pH (4.5-7.5) Ur Specific [place] (1.000-1.030) Urine Protein (Negative) Urine Glucose (UA) (Negative) Urine Ketones (Negative) Urine Blood (Negative) Urine Nitrite (Negative) Urine Bilirubin (Negative) Urine Urobilinogen (Negative) Ur Leukocyte Esterase (Negative) Urine WBC (Auto) (0-5) /hpf Urine RBC (Auto) (0-4) /hpf U Hyaline Cast (Auto) (0-5) /lpf U Epithel Cells (Auto) (0-5) /lpf Urine Bacteria (Auto) (Negative) Adenovirus (PCR) (NotDetected) B. pertussis DNA (PCR) (NotDetected) B.parapertussis DNA PCR (NotDetected) Lyme Disease IgG Ab Negative (Negative) Lyme Disease IgM Ab Negative (Negative) C. pneumoniae DNA (PCR) (NotDetected) Coronavirus OC43 (PCR) (NotDetected) Coronavirus HKU1 (PCR) (NotDetected) Coronavirus 229E (PCR) (NotDetected) SARS-CoV-2 (PCR) (NotDetected) Coronavirus NL63 (PCR) (NotDetected) Human Metapneumovir PCR (NotDetected) Influenza Type A (PCR) (NotDetected) Influenza Type B (PCR) (NotDetected) M. pneumoniae (PCR) (NotDetected) Parainfluenza 1 (PCR) (NotDetected) Parainfluenza 2 (PCR) (NotDetected) Parainfluenza 3 (PCR) (NotDetected) Parainfluenza 4 (PCR) (NotDetected) RSV (PCR) (NotDetected) Entero/Rhino (PCR) (NotDetected) 10/22/22 10/22/22 Range/Units 13:00 Unknown WBC (4.8-10.8) K/ul RBC (4.20-5.40) M/uL Hgb (12.0-16.0) g/dl Hct (37.0-47.0) % MCV (80.0-100.0) fL MCH (25.0-34.0) pg MCHC (32.0-36.0) g/dL RDW Std Deviation (36.4-46.3) fL RDW Coeff of Demarco (11.5-14.5) % Plt Count (130-400) K/uL MPV (9.4-12.4) fL Immature Gran % (Auto) % Neut % (Auto) % Lymph % (Auto) % [place] % (Auto) % Eos % (Auto) % Baso % (Auto) % Neut # (Auto) (1.40-6.50) K/uL Lymph # (Auto) (1.2-3.4) K/uL [place] # (Auto) (0.11-0.59) K/uL Eos # (Auto) (0-0.50) K/uL Baso # (Auto) (0-0.2) K/uL Immature Gran # (Auto) (0.01-0.20) K/uL PT (9.0-12.0) Seconds INR (0.9-1.1) APTT (21.0-31.0) Seconds PTT Ratio Sodium (136-145) mmol/L Potassium (3.5-5.1) mmol/L Chloride (98-107) mmol/L Carbon Dioxide (21-32) mmol/L Anion Gap (3-11) BUN (6-23) mg/dl Creatinine (0.6-1.2) mg/dl Est Cr Clr Drug Dosing ml/min Est GFR ( Amer) ml/min Est GFR (Non-Af Amer) ml/min BUN/Creatinine Ratio (10-20) Glucose (70-99(Fasting)) mg/dl Lactate (0.4-2.0) mmol/L Calcium (8.6-10.3) mg/dl Magnesium (1.7-2.4) mg/dl Total Bilirubin (0.2-1.0) mg/dl AST (13-39) U/L ALT (7-52) U/L Alkaline Phosphatase (34-104) U/L Troponin I High Sens (0-14) pg/ml Total Protein (6.0-8.3) gm/dl Albumin (3.4-5.0) gm/dl Globulin (2.5-4.0) gm/dl Albumin/Globulin Ratio (0.9-2) Lipase (11-82) U/L TSH (0.300-4.500) uIu/ml Urine Color [place] Urine Appearance Clear (Clear) Urine pH 5.5 (4.5-7.5) Ur Specific [place] 1.023 (1.000-1.030) Urine Protein 1+ H (Negative) Urine Glucose (UA) Negative (Negative) Urine Ketones Negative (Negative) Urine Blood Trace H (Negative) Urine Nitrite Negative (Negative) Urine Bilirubin Negative (Negative) Urine Urobilinogen Negative (Negative) Ur Leukocyte Esterase 1+ H (Negative) Urine WBC (Auto) 5-10 H (0-5) /hpf Urine RBC (Auto) 0-4 (0-4) /hpf U Hyaline Cast (Auto) 5-10 H (0-5) /lpf U Epithel Cells (Auto) 20-30 H (0-5) /lpf Urine Bacteria (Auto) Negative (Negative) Adenovirus (PCR) Not Detected (NotDetected) B. pertussis DNA (PCR) Not Detected (NotDetected) B.parapertussis DNA PCR Not Detected (NotDetected) Lyme Disease IgG Ab (Negative) Lyme Disease IgM Ab (Negative) C. pneumoniae DNA (PCR) Not Detected (NotDetected) Coronavirus OC43 (PCR) Not Detected (NotDetected) Coronavirus HKU1 (PCR) Not Detected (NotDetected) Coronavirus 229E (PCR) Not Detected (NotDetected) SARS-CoV-2 (PCR) Not Detected (NotDetected) Coronavirus NL63 (PCR) Not Detected (NotDetected) Human Metapneumovir PCR Not Detected (NotDetected) Influenza Type A (PCR) Not Detected (NotDetected) Influenza Type B (PCR) Not Detected (NotDetected) M. pneumoniae (PCR) Not Detected (NotDetected) Parainfluenza 1 (PCR) Not Detected (NotDetected) Parainfluenza 2 (PCR) Not Detected (NotDetected) Parainfluenza 3 (PCR) Not Detected (NotDetected) Parainfluenza 4 (PCR) Not Detected (NotDetected) RSV (PCR) Not Detected (NotDetected) Entero/Rhino (PCR) Not Detected (NotDetected) Administered Medications Discontinued Medications Atenolol (Atenolol 25 Mg Tablet) 25 mg PO NOW STA Stop: 10/22/22 12:39 Last Admin: 10/22/22 12:53 Dose: Not Given Documented By: DIVYA Atenolol (Atenolol 50 Mg Tablet) Confirm Administered Dose 50 mg .ROUTE .STK-MED ONE Stop: 10/22/22 12:50 Last Admin: 10/22/22 12:53 Dose: 25 mg Documented By: DIVYA Sodium Chloride (Nss 1000ml) 1,000 mls @ 999 mls/hr IV .Q1H1M ONE Stop: 10/22/22 13:28 Last Infusion: 10/22/22 14:57 Dose: 0 mls/hr Documented By: Admin: 10/22/22 12:53 Dose: 999 mls/hr Documented By: DIVYA Cefepime HCl (Maxipime) 2,000 mg in 20 mls @ 5 mls/min IV NOW STA; Protocol Stop: 10/22/22 12:32 Last Admin: 10/22/22 12:53 Dose: 5 mls/min Documented By: DIVYA Acetaminophen (Ofirmev) 1,000 mg in 100 mls @ 400 mls/hr IV NOW STA Stop: 10/22/22 12:49 Last Infusion: 10/22/22 13:15 Dose: 0 mls/hr Documented By: Admin: 10/22/22 12:53 Dose: 400 mls/hr Documented By: DIVYA Sodium Chloride (Nss 1000ml) 1,000 mls @ 999 mls/hr IV .Q1H1M ONE Stop: 10/22/22 15:58 Last Infusion: 10/22/22 17:11 Dose: 0 mls/hr Documented By: Admin: 10/22/22 15:58 Dose: 999 mls/hr Documented By: VASILIY Ioversol (Optiray 320 100ml) 94 ml IV ONCE ONE Stop: 10/22/22 14:08 Last Admin: 10/22/22 14:07 Dose: 94 ml Documented By: SYLVIA Imaging Data Radiologist's Impression: Chest X-Ray 10/22/22 12:20 XR chest 1V portable CLINICAL HISTORY: Chest pain, nonspecific COMPARISON STUDY: Chest radiograph June 06, 2022. FINDINGS: There is no pneumothorax. No definite pleural effusion is present. Cardiomediastinal silhouette is stable. Interval development of hazy right mid and lower lung opacity is present. There is no evidence for pulmonary edema. Left lung is clear. IMPRESSION: Interval development of hazy right mid and lower lung opacity. This is nonspecific and could reflect pneumonia, pleural fluid or overlying soft tissue artifact. This can be assessed on the CT of the abdomen and pelvis which has been ordered. ACT 112: Negative or not required by law. Electronically signed by: Davy Dumont M.D. 10/22/2022 1:07 PM Abdomen/Pelvis CT 10/22/22 12:[address] WITH IV CONTRAST CT DOSE: 1408.89 mGy.cm HISTORY: Acute right upper quadrant abdominal pain with fever ruq pain, fever, diarrhea TECHNIQUE: Multiaxial CT images of the abdomen and pelvis were performed following the IV administration of 94 cc of Optiray, A dose lowering technique was utilized adhering to the principles of ALARA. COMPARISON STUDY: Chest radiograph of same day, CT abdomen and pelvis 11/30/2021 FINDINGS: Partially imaged complete consolidation of the right middle lobe. Lung bases are otherwise generally clear. No pneumatosis or pneumoperitoneum. Unremarkable spleen, pancreas, gallbladder, adrenal glands and liver. Patency of the hepatic and portal veins. Unremarkable kidneys. There is no hydronephrosis. The distal ureters and pelvic structures are not well visualized secondary to streak artifact from the hip arthroplasties. Moderate atherosclerosis of the aorta without aneurysm. No lymphadenopathy. Tiny hiatal hernia. No bowel obstruction or bowel wall thickening. Colonic diverticulosis. Normal appendix. Unremarkable soft tissues. Degenerative changes of the spine. No acute fracture. IMPRESSION: 1. Partially imaged near complete consolidation of the right middle lobe suggestive of pneumonia. Follow-up imaging after treatment course recommended to document resolution. Findings could be correlated with bronchoscopy to exclude an obstructing endobronchial process. 2. No acute intra-abdominal or intrapelvic abnormality. 3. Colonic diverticulosis. 4. Normal appendix. ACT 112: Negative or not required by law. The above report was generated using voice recognition software. It may contain grammatical, syntax or spelling errors. Electronically signed by: Lawrence Killian M.D. 10/22/2022 2:22 PM Discharge Plan Visit Data Chief Complaint: Abnormal Labs/Diagnostic Testing Stated Complaint: REF BY DOC,ABNORMAL EKG ED Provider: Andreas Dumont Discharge Problem: SOB (shortness of breath), Pneumonia, Atrial fibrillation with rapid vent ricular response, Leukocytosis Patient Disposition: Admitted As Inpatient Condition: Fair
[2022-10-22] MEDS ORDERED: ATENOLOL 50 MG TABLET ONE (12:49)
[2022-10-22 13:01] LABS: Basophils # (auto) 0.04 K/uL (0-0.2); Basophils % (auto) 0.3 %; Eosinophils # (auto) 0.01 K/uL (0-0.50); Eosinophils % (auto) 0.1 %; Hematocrit (blood only) 43.9 % (37.0-47.0); Hemoglobin 15.1 g/dl (12.0-16.0); Immature Granulocytes # (auto) 0.05 K/uL (0.01-0.20); Immature Granulocytes % (auto) 0.4 %; Lymphocytes # (auto) 0.77 K/uL (1.2-3.4); Lymphocytes % (auto) 5.5 %; Mean Corpuscular Hemoglobin 31.9 pg (25.0-34.0); Mean Corpuscular Hgb Conc 34.4 g/dL (32.0-36.0); Mean Corpuscular Volume 92.8 fL (80.0-100.0); Mean Platelet Volume 8.9 fL (9.4-12.4); Monocytes # (auto) 1.37 K/uL (0.11-0.59); Monocytes % (auto) 9.9 %; Neutrophils # (auto) 11.65 K/uL (1.40-6.50); Neutrophils % (auto) 83.8 %; Platelet Count 348 K/uL (130-400); RDW Coefficient of Variation 12.7 % (11.5-14.5); RDW Standard Deviation 43.7 fL (36.4-46.3); Red Blood Count 4.73 M/uL (4.20-5.40); White Blood Count 13.89 K/ul (4.8-10.8)
[2022-10-22 13:04] LABS: Albumin Level 3.6 gm/dl (3.4-5.0); Bilirubin,Total 0.8 mg/dl (0.2-1.0); Calcium 9.9 mg/dl (8.6-10.3); Potassium 3.9 mmol/L (3.5-5.1)
--- NOTE | 2022-10-22 13:09 | XRay Report ---
XR chest 1V portable CLINICAL HISTORY: Chest pain, nonspecific COMPARISON STUDY: Chest radiograph June 06, 2022. FINDINGS: There is no pneumothorax. No definite pleural effusion is present. Cardiomediastinal silhou ette is stable. Interval development of hazy right mid and lower lung opacity is present. There is no evidence for pulmonary edema. Left lung is clear. IMPRESSION: Interval development of hazy right mid and lower lung opacity. This is nonspecific and c ould reflect pneumonia, pleural fluid or overlying soft tissue artifact. This can be assessed on the CT of the abdomen and pelvis which has been ordered. ACT 112: Negative or not required by law. Electronically signed by: Davy Dumont M.D. 10/22/2022 1:07 PM
[2022-10-22 13:10] LABS: BUN Creatinine Ratio 17.1 (10-20); Creatinine Clr Calc Pharmacy 96.3 ml/min; Est GFR (African American) 106.9 ml/min; Est GFR (Non-African American) 92.2 ml/min; Globulin 3.5 gm/dl (2.5-4.0); Total Protein 7.1 gm/dl (6.0-8.3)
[2022-10-22 13:24] LABS: INR 1.1 (0.9-1.1); Partial Thromboplastin Time 28.8 Seconds (21.0-31.0); Prothrombin Time 12.3 Seconds (9.0-12.0); Troponin I High Sensitivity 6.1 pg/ml (0-14)
[2022-10-22 13:32] LABS: Lyme Ab IgG w/WB Rflx Negative (Negative)
[2022-10-22 13:33] LABS: Lyme Ab IgM w/WB Rflx Negative (Negative)
[2022-10-22] MEDS ORDERED: OPTIRAY 320 100ml IV ONE (14:07)
--- NOTE | 2022-10-22 14:24 | CT Scan Report ---
ABDOMEN AND PELVIS CT WITH IV CONTRAST CT DOSE: 1408.89 mGy.cm HISTORY: Acute right upper quadrant abdominal pain with fever ruq pain, fever, diarrhea TECHNIQUE: Multiaxial CT images of the abdomen and pelvis were performed following the IV administrat ion of 94 cc of Optiray, A dose lowering technique was utilized adhering to the principles of ALARA. COMPARISON STUDY: Chest radiograph of same day, CT abdomen and pelvis 11/30/2021 FINDINGS: Partially imaged complete consolidation of the right middle lobe. Lung bases are otherwise generally clear. No pneumatosis or pneumoperitoneum. Unremarkable spleen, pancreas, gallbladder, adre nal glands and liver. Patency of the hepatic and portal veins. Unremarkable kidneys. There is no hydr onephrosis. The distal ureters and pelvic structures are not well visualized secondary to streak celeste fact from the hip arthroplasties. Moderate atherosclerosis of the aorta without aneurysm. No lymphade nopathy. Tiny hiatal hernia. No bowel obstruction or bowel wall thickening. Colonic diverticulosis. Normal devonte endix. Unremarkable soft tissues. Degenerative changes of the spine. No acute fracture. IMPRESSION: 1. Partially imaged near complete consolidation of the right middle lobe suggestive of pneumonia. Fol low-up imaging after treatment course recommended to document resolution. Findings could be correlate d with bronchoscopy to exclude an obstructing endobronchial process. 2. No acute intra-abdominal or intrapelvic abnormality. 3. Colonic diverticulosis. 4. Normal appendix. ACT 112: Negative or not required by law. The above report was generated using voice recognition software. It may contain grammatical, syntax o r spelling errors. Electronically signed by: Lawrence Killian M.D. 10/22/2022 2:22 PM
[2022-10-22 14:40] LABS: Adenovirus PCR Not Detected (NotDetected); Bordetella parapertussis PCR Not Detected (NotDetected); Bordetella pertussis PCR Not Detected (NotDetected); Chlamydia pneumoniae PCR Not Detected (NotDetected); Coronavirus 229E PCR Not Detected (NotDetected); Coronavirus CoV-2 (COVID19)PCR Not Detected (NotDetected); Coronavirus HKU1 PCR Not Detected (NotDetected); Coronavirus NL63 PCR Not Detected (NotDetected); Coronavirus OC43PCR Not Detected (NotDetected); Human Metapneumovirus PCR Not Detected (NotDetected); Influenza A PCR Not Detected (NotDetected); Influenza B PCR Not Detected (NotDetected); Mycoplasma pneumoniae PCR Not Detected (NotDetected); Parainfluenza Virus 1 PCR Not Detected (NotDetected); Parainfluenza Virus 2 PCR Not Detected (NotDetected); Parainfluenza Virus 3 PCR Not Detected (NotDetected); Parainfluenza Virus 4 PCR Not Detected (NotDetected); Respiratory Syncytial VirusPCR Not Detected (NotDetected); Rhinovirus/Enterovirus PCR Not Detected (NotDetected)
[2022-10-22] MEDS ORDERED: MAGNESIUM HYDROXIDE SUSP 30 ML UDC PO PRN (15:00)
[2022-10-22] MEDS ORDERED: POLYETHYLENE (MIRALAX) 17 GM PACK PO PRN (15:00)
[2022-10-22] MEDS ORDERED: ONDANSETRON INJ 2 MG/ML 2 ML VIAL IV PRN (15:00)
[2022-10-22] MEDS ORDERED: ALUMINUM/MAGNESIUM SUSP 30 ML UDC PO PRN (15:00)
[2022-10-22 15:10] LABS: Appearance Urine Clear (Clear); Bacteria Urine Automated Negative (Negative); Bilirubin Urine Negative (Negative); Blood Urine Trace (Negative); Color Urine Orange; Epithelial Cell Urine Auto 20-30 /lpf (0-5); Glucose Urine UA Negative (Negative); Ketones Urine Negative (Negative); Leukocyte Esterase Urine 1+ (Negative); Nitrite Urine Negative (Negative); Protein Urine 1+ (Negative); RBC Urine Automated 0-4 /hpf (0-4); Specific Gravity Urine 1.023 (1.000-1.030); Urobilinogen Urine Negative (Negative); pH Urine 5.5 (4.5-7.5)
--- NOTE | 2022-10-22 15:22 | History & Physical Report ---
Date of Service October 22, 2022 Assessment & Plan (1) Pneumonia: (2) New onset a-fib: (3) DJD (degenerative joint disease) of hip: (4) Paroxysmal SVT (supraventricular tachycardia): (5) Hypothyroidism: (6) Sepsis: Plan 62 y/o found to be in new onset AF at PCP office; where she was to be evaluated for DAVIS, fever, chills, cough and general malaise with poor appetite. Spontaneously converted to ST then SR without antiarrhythmics. No atrial fibrillation inpatient history. Leukocytosis 13.89 otherwise labs unremarkable. Lactate 1.6, troponin negative. Chest x-ray suggestive of mid to lower lobe pneumonia and abdominal CT suggestive of Partially imaged near complete consoli dation of the right middle lobe suggestive of pneumonia. Follow-up imaging after treatment course recommended to document resolution. Findings could be correlated with bronchoscopy to exclude an obstructing endobronchial process. Most recent PFTs 08/30/2022; FEV1 1.37. Additional past medical history includes HTN, pSVT (On Atenolol), hypothyroidism, depression, and DJD. COVID-+ 08/12/2022; supportive treatment at that time and she reports that her symptoms have resolved without residual effects. Has not had the Pneumoccocal vaccine. Most recent ECHO 2019; EF 60%, no wall abnormalities, normal LV function with grade 1 diastolic dysfunction. Obtain sputum culture, UDS, echocardiogram, blood cultures, broad-spectrum antibiotics and adjusting based on culture results, cough expectorant; should patient not show improvement consider pulmonary input. Will continue IV fluids with broad spectrum abx, Mucinex, and await culture results. Await ECHO results and Cards input as well. Sepsis: Pneumonia: Admit to PCU Tele Does not meet SIRS criteria; febrile without tachycardia/hypotension/tachypnea soft BP 99/64; just received AM dose of Atenolol in ED Leukocytosis 13.89 Received 1LNSB in ED; clinically dry with poor appetite; continue IV fluids @ 100mL/hour x2 bags and reassess oral intake Blood and sputum cultures pending Lactate 1.6, troponin negative; otherwise electrolytes unremarkable TSH 0.91, Mg+ 2.0 check MRSA swab Troponin negative; check procal ISB CXR in AM Cefepime given in ED; Rocephin + Doxy to continue; adjust based on culture results New onset A-fib: History of paroxysmal SVT: Admit to PCU Tele Spontaneously converted without antiarrhythmic; suspect related to sepsis hold on anticoagulation at this point; should patient re-enter AF; consider Heparin drip and correlate clinically ECG in ED Sinus Tachycardia; repeat in AM and PRN CHADsVASC score: 1 low to moderate risk for AMI or CVA ECHO 2019; EF 60%, no wall abnormalities, normal LV function with grade 1 diastolic dysfunction; repeat ECHO while here. Cardiology Consultation DJD: Chronic; used to take Percocet; does not take anymore conservative management Hypothyroidism: Takes levothyroxine Most recent TSH 07/2021: 2.68; today 0.91 Disposition: PCP: Dr. Michelle Code Status: Full Code VTE Prophylaxis: Lovenox SQ I spent a total of 88 minutes coordinating, documenting, and providing care for this patient excluding time spent in the performance of separately billed services. All of the aforementioned completed while collaborating with the assigned attending physician for a full treatment plan. Please see their addendum for further details. History of Present Illness Primary Care Provider: Chandler Michelle MD Ms. Darnell is a 62-year-old female that presented from outpatient clinic after being found in new onset A-fib with heart rate 150; initially presented to outpatient clinic with nausea vomiting diarrhea and pain in her right lower abdomen with a productive cough. Per ED ED patient spontaneously converted to sinus tachycardia as evidence on ECG; no meds were given for rate control. No atrial fibrillation inpatient history. Leukocytosis 13.89 otherwise labs unremarkable. Lactate 1.6, troponin negative. Chest x-ray suggestive of mid to lower lobe pneumonia and abdominal CT suggestive of Partially imaged near complete consolidation of the right middle lobe suggestive of pneumonia. Follow- up imaging after treatment course recommended to document resolution. Findings could be correlated with bronchoscopy to exclude an obstructing endobronchial process. Most recent PFTs 08/30/2022; FEV1 1.37. Additional past medical history includes HTN, hypothyroidism, DJD. Per review of outpatient records patient with known cocaine, marijuana, amphetamine use as a teenager; confirmed she has not used illicit drugs since she was a teenager. COVID-positive 08/12/2022 per EMR link; supportive treatment at that time and she reports that her symptoms have resolved without residual effects. Has not had the Pneumoccocal vaccine. Most recent ECHO 2019; EF 60%, no wall abnormalities, normal LV function with grade 1 diastolic dysfunction. Obtain sputum culture, UDS, echocardiogram, blood cultures, broad-spectrum antibiotics and adjusting based on culture results, cough expectorant; should patient not show improvement consider pulmonary involvement. Patient denies headache, dizziness, visual or auditory changes, recent falls or trauma, hematuria, hematochezia, recent falls or trauma. During my examination, she was sitting upright in her hospital bed hving an ECHO performed at bedside. She is in no apparent distress and able to speak in complete sentences. She has decreased breath sounds posterioraly and it does hurt to take a considerable deep breath. Mid-lung with coarse sounds. Abdomen S/NT/ND; suspect discomfort is stemming from pneumonia. Will continue IV fluids with broad spectrum abx, Mucinex, and await culture results. Await ECHO results and Cards input as well. Patient will be admitted for further evaluation and management. Please see A/P for further details. Allergies Allergy/AdvReac Type Severity Reaction Status Date / Time varenicline AdvReac Intermediate nightmares Verified 10/22/22 15:34 Home Medications Medication Instructions Recorded Confirmed Type albuterol sulfate 90 mcg/actuation 2 puff inhalation Q6 PRN Wheezing 10/22/22 10/22/22 History aerosol inhaler atenolol 25 mg tablet 25 mg PO DAILY 10/22/22 10/22/22 History estradiol 0.01% (0.1 mg/gram) 1 appful vaginal 2XWK 10/22/22 10/22/22 History vaginal cream fexofenadine 60 mg tablet 0 mg PO DAILY 10/22/22 10/22/22 History fluticasone 250 mcg-salmeterol 50 1 ea inhalation BID 10/22/22 10/22/22 History mcg/dose blistr powdr for inhalation (Wixela Inhub) furosemide 40 mg tablet 40 mg PO DAILY 10/22/22 10/22/22 History lactobacillus combination no.4 3 0 mmu cells PO DAILY 10/22/22 10/22/22 History billion cell capsule (Probiotic) levothyroxine 100 mcg tablet 100 mcg PO DAILYBB 10/22/22 10/22/22 History liraglutide (weight loss) 3 mg/0.5 2.4 mg subcut DAILY 10/22/22 10/22/22 History mL (18 mg/3 mL) subcut pen injector (Saxenda) huzaqiqdpfqf-[id number] 1 tab PO DAILY 10/22/22 10/22/22 History tablet (Multivitamin 50 Plus tablet) potassium 99 mg tablet 99 mg PO DAILY 10/22/22 10/22/22 History Past Med/Surg History Medical History Chronic back pain LBP Chronic obstructive pulmonary disease Stable History of COVID-19 Dx 2020- loss of appetite, sob, fever > resolved Hypothyroidism IBS (irritable bowel syndrome) Morbid obesity New onset a-fib Osteoarthritis Paroxysmal atrial tachycardia Remote hx- takes atenolol Follows with [facility] Paroxysmal SVT (supraventricular tachycardia) Remote hx- takes atenolol Follows with [facility] Pneumonia Sepsis Surgical History History of anesthesia reaction Awareness during hip replacement History of bilateral tubal ligation History of colonoscopy 12/04/21: MAC at [facility] History of left knee replacement Left TKA (12/01/19): SAB at L3/4 (x2 attempts) + PNB at [facility]. No issues noted per post-op anesthesia progress note. 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 Goods Required: No Beliefs That Will Affect Care: None marital status: Current Living Situation: Spouse Other Information That Helps Us Care for You: No Feels Safe at Home: Yes Safety Concerns: Feels Safe At This Time Assistive Devices: Glasses Review of Systems Review of Systems: Neuro: (-) Falls, trauma, slurred speech HEENT: (-) DAVIS, dizziness, dysphagia, visual or auditory changes CV: (-) CP, palpitations, (-) swelling Resp: (+) SOB GI: (-) appetite changes, N/V/D, bowel changes : (-) urinary changes Skin: (-) rashes Psych: (-) anxiety, depression Physical Exam Physical Exam: Neuro: AAOx4, PERRLA, no aphagia, memory changes, CNII-XII grossly intact HEENT: head normocephalic, moist mucus membranes CV: S1/S2, (-) M/G/R, (-) edema, cap refill < 3 seconds Resp: Lungs coarse mid lobes GI: Abdomen S/NT/ND, Ax4 bowel sounds, (-) CVA tenderness Musculoskeletal: 5/5 B/L UE strength, 5/5 B/L LE strength. No gait disturbance Skin: (-) rashes , (-) erythema. Psych: euthymic mood Results & Data Results & Data Vital Signs (Past 12 Hours) Vital Signs Temp Pulse Resp BP Pulse Ox O2 Del Method 10/22/22 14:38 94 H 20 99/64 L 10/22/22 13:30 106 H 20 10/22/22 13:16 105/71 10/22/22 13:16 108 H 20 10/22/22 13:15 112 H 20 10/22/22 13:24 103 H 10/22/22 13:03 102 H 98 10/22/22 13:03 134/79 10/22/22 13:00 106 H 10/22/22 12:45 116 H 10/22/22 12:33 112 H 21 10/22/22 12:33 167/86 H 10/22/22 12:30 137 H 18 10/22/22 12:29 153 H 21 10/22/22 12:47 98 Room Air 10/22/22 12:44 117 H 10/22/22 12:20 38.0 C H 108 H 18 149/90 H 94 Room Air Laboratory Results Short CBC 10/22/22 Range/Units 12:39 WBC 13.89 H (4.8-10.8) K/ul Hgb 15.1 (12.0-16.0) g/dl Hct 43.9 (37.0-47.0) % Plt Count 348 (130-400) K/uL BMP 10/22/22 12:39 Sodium 134 L Potassium 3.9 Chloride 101 Carbon Dioxide 26 BUN 12 Creatinine 0.70 Glucose 144 H Calcium 9.9 Liver Function 10/22/22 Range/Units 12:39 Total Bilirubin 0.8 (0.2-1.0) mg/dl AST 18 (13-39) U/L ALT 21 (7-52) U/L Alkaline Phosphatase 97 (34-104) U/L Albumin 3.6 (3.4-5.0) gm/dl Urine 10/22/22 Range/Units Unknown Urine Color Whitman Urine Appearance Clear (Clear) Urine pH 5.5 (4.5-7.5) Ur Specific Bayard 1.023 (1.000-1.030) Urine Protein 1+ H (Negative) Urine Glucose (UA) Negative (Negative) Diagnostic Findings Chest X-Ray 10/22/22 12:20 XR chest 1V portable CLINICAL HISTORY: Chest pain, nonspecific COMPARISON STUDY: Chest radiograph June 06, 2022. FINDINGS: There is no pneumothorax. No definite pleural effusion is present. Cardiomediastinal silhouette is stable. Interval development of hazy right mid and lower lung opacity is present. There is no evidence for pulmonary edema. Left lung is clear. IMPRESSION: Interval development of hazy right mid and lower lung opacity. This is nonspecific and could reflect pneumonia, pleural fluid or overlying soft tissue artifact. This can be assessed on the CT of the abdomen and pelvis which has been ordered. ACT 112: Negative or not required by law. Electronically signed by: Davy Dumont M.D. 10/22/2022 1:07 PM Abdomen/Pelvis CT 10/22/22 12:[address] WITH IV CONTRAST CT DOSE: 1408.89 mGy.cm HISTORY: Acute right upper quadrant abdominal pain with fever ruq pain, fever, diarrhea TECHNIQUE: Multiaxial CT images of the abdomen and pelvis were performed following the IV administration of 94 cc of Optiray, A dose lowering technique was utilized adhering to the principles of ALARA. COMPARISON STUDY: Chest radiograph of same day, CT abdomen and pelvis 11/30/2021 FINDINGS: Partially imaged complete consolidation of the right middle lobe. Lung bases are otherwise generally clear. No pneumatosis or pneumoperitoneum. Unremarkable spleen, pancreas, gallbladder, adrenal glands and liver. Patency of the hepatic and portal veins. Unremarkable kidneys. There is no hydronephrosis. The distal ureters and pelvic structures are not well visualized secondary to streak artifact from the hip arthroplasties. Moderate atherosclerosis of the aorta without aneurysm. No lymphadenopathy. Tiny hiatal hernia. No bowel obstruction or bowel wall thickening. Colonic diverticulosis. Normal appendix. Unremarkable soft tissues. Degenerative changes of the spine. No acute fracture. IMPRESSION: 1. Partially imaged near complete consolidation of the right middle lobe suggestive of pneumonia. Follow-up imaging after treatment course recommended to document resolution. Findings could be correlated with bronchoscopy to exclude an obstructing endobronchial process. 2. No acute intra-abdominal or intrapelvic abnormality. 3. Colonic diverticulosis. 4. Normal appendix. ACT 112: Negative or not required by law. The above report was generated using voice recognition software. It may contain grammatical, syntax or spelling errors. Electronically signed by: Lawrence Killian M.D. 10/22/2022 2:22 PM Code Status & VTE Plan Code Status Full code in the event of cardiac or respiratory arrest VTE Prophylaxis Plan VTE Prophylaxis will be ordered: Yes Supervising Physician Co-Signing Physician Notes I have seen and examined the patient and have discussed the case with the provider above. I agree with the assessment and plan as stated. 62 yo F found to be in new onset afib at PCP office, presents with sepsis 2/2 pneumonia. She reports feeling poorly as noted above for a few days now. She endorses poor PO intake and has chest wall pain on her right lower chest along with pleurisy. Feels better after initial resuscitation efforts in the ER and appears resuscitated on reassessment. On exam she is morbidly obese. She is not working to breathe. She is mentating clearly. Cardiac exam reveals S1/2 without murmur and regular rate and rhythm. No peripheral edema was seen. Lungs are clear with diminished breath sounds at the bases. There is chest wall pain to palpation of the right lower chest wall. Lab work, imaging, EKG reviewed. Outpatient records reviewed. She has a mild leukocytosis consistent with infection in setting of cough, fevers, chills and evidence of RML pneumonia on CT chest. There was normal renal function and no significant electrolyte abnormalities. Lactic acid was 1.6. EKG initially revealed rapid atrial fibrillation with no evidence of ischemia. During treatment efforts in the ER, she converted to sinus tachycardia and heart rate continued to improve with IV hydration. She was started on IV cefepime. 1. Sepsis 2/2 RML pneumonia 2. New onset atrial fibrillation 3. Morbid obesity Admitting to telemetry and cont IV abx including Rocephin and doxycycline as noted above. Suspect the afib was from sepsis and pneumonia, and has currently resolved. Patient denies any issues with aspiration. Consider anticoagulation with heparin if this returns. Cont rate control efforts as needed including atenolol per home regimen. Prior echo in 2019 revealed a dilated LA. Updated echo pending. Cont symptom management. Repeat chest CT in 4 weeks to ensure complete resolution of pneumonia in this nonsmoker. Consider pulmonary referral if not resolved with typical course of antibiotics. Efrain, DO
[2022-10-22] MEDS ORDERED: SODIUM CHLORIDE 0.9% 1000ML 1,000 ML IV SCH (16:45)
[2022-10-22] MEDS: SODIUM CHLORIDE 0.9% 1000ML 1,000 ML IV SCH (17:45)
[2022-10-22] MEDS: ACETAMINOPHEN 325 MG TAB PO PRN (20:33)
[2022-10-22] MEDS: FLUTICASONE/VILANTEROL 200/25MCG 14 PUFFS/INHALER INH SCH (20:34)
[2022-10-22] MEDS: cefTRIAXone SODIUM 2,000 MG in DEXTROSE 5% 50 ML IV SCH (20:34)
[2022-10-22] MEDS: DOXYCYCLINE HYCLATE 100 MG in DEXTROSE 5% 100 ML IV SCH (20:35)
[2022-10-23] MEDS ORDERED: TROLAMINE SALICYLATE 10% CRM 255 APPLN/85 GM TUBE EXT PRN (02:06)
[2022-10-23] MEDS: SODIUM CHLORIDE 0.9% 1000ML 1,000 ML IV SCH (04:05)
[2022-10-23] MEDS: LEVOTHYROXINE SODIUM 100 MCG TABLET PO SCH (06:03)
[2022-10-23] MEDS ORDERED: METOPROLOL TARTRATE 25 MG TAB PO ONE (07:18)
[2022-10-23 07:56] LABS: Hematocrit (blood only) 38.5 % (37.0-47.0); Mean Corpuscular Hemoglobin 31.9 pg (25.0-34.0); Mean Corpuscular Hgb Conc 33.8 g/dL (32.0-36.0); Mean Corpuscular Volume 94.4 fL (80.0-100.0); Mean Platelet Volume 8.9 fL (9.4-12.4); Platelet Count 318 K/uL (130-400); RDW Coefficient of Variation 12.7 % (11.5-14.5); RDW Standard Deviation 44.3 fL (36.4-46.3); Red Blood Count 4.08 M/uL (4.20-5.40); White Blood Count 15.16 K/ul (4.8-10.8)
[2022-10-23 08:14] LABS: Albumin Level 3.1 gm/dl (3.4-5.0); BUN Creatinine Ratio 13.6 (10-20); Bilirubin,Total 0.6 mg/dl (0.2-1.0); Calcium 9.2 mg/dl (8.6-10.3); Creatinine Clr Calc Pharmacy 114.3 ml/min; Est GFR (African American) 113.1 ml/min; Est GFR (Non-African American) 97.5 ml/min; Immunoglobulin A 109.8 mg/dl (70-400); Immunoglobulin G 587.5 mg/dl (635-1741); Phosphorus 3.3 mg/dl (2.5-4.9); Potassium 3.6 mmol/L (3.5-5.1); Total Protein 6.1 gm/dl (6.0-8.3)
[2022-10-23] MEDS: FUROSEMIDE 40 MG TAB PO SCH (08:29)
[2022-10-23] MEDS: DOXYCYCLINE HYCLATE 100 MG in DEXTROSE 5% 100 ML IV SCH ×2 (08:33→21:14)
--- NOTE | 2022-10-23 08:53 | XRay Report ---
SINGLE VIEW CHEST CLINICAL HISTORY: Pneumonia FINDINGS: An AP, portable, upright chest radiograph is compared to study dated 10/22/2022 and correlate d with abdominal CT dated 10/22/2022. The cardiomediastinal silhouette is unremarkable. Dense right mid dle lobe consolidation is unchanged. The left lung appears clear noting basilar atelectasis. No large pleural effusion is identified. No pneumothorax is seen. The skeletal structures are osteopenic. The bony thorax is grossly intact. IMPRESSION: Dense right middle lobe consolidation is unchanged from yesterday. Radiographic follow-up to resolution is recommended. ACT 112: Negative or not required by law. Electronically signed by: Andreas Gamino M.D. 10/23/2022 8:52 AM
[2022-10-23] MEDS ORDERED: ENOXAPARIN INJ 40 MG/0.4 ML SYR SQ SCH (09:00)
[2022-10-23] MEDS ORDERED: ATENOLOL 25 MG TABLET PO SCH (09:00)
[2022-10-23] MEDS: ALBUT/IPRATROP 3MG/0.5MG NEB 3 ML VIAL NEB SCH ×2 (10:44→19:17)
--- NOTE | 2022-10-23 10:58 | Cardiology Consultation ---
Date of Consultation October 23, 2022 Assessment & Plan (1) Atrial fibrillation with rapid ventricular response: (2) Pneumonia: (1) Atrial fibrillation with rapid ventricular response: -Patient with chart history of paroxysmal supraventricular tachycardia. She notes recent increase in palpitations, I suspect that she has been having episodes of atrial fibrillation. Shortness of breath noted yesterday certainly correlated with atrial fibrillation with rapid ventricular response. I would estimate her [id number] score is being 2 for risk factors of age and female sex. Her age of [age] years old is very close to 64 years old. I am however concerned about her risk of cardioembolic stroke, and in her case, I would recommend initiating therapy with Eliquis 5 mg twice daily for stroke prophylaxis. Metoprolol tartrate 25 mg twice daily initiated yesterday which she is tolera ting well. Based on her telemetry, will likely have room to increase this to 37.5 mg twice daily. Her TSH was assessed this admission was normal on 10/22/2022. (2) Pneumonia: -Agree with Rocephin and doxycycline as per the admitting team. History of Present Illness Attending Physician: Casey Fuentes MD History of Present Illness Katelynn Baez is a 62-year-old female seen in cardiology consultation per the request of MASON Prince For the evaluation of atrial fibrillation. Patient notes feeling generalized illness with complaints of nausea, vomiting, diarrhea, pain in her right lower abdomen, and productive cough. She was seen by her primary care provider, Dr. Interiano yesterday and an EKG was performed due to her concerns of shortness of breath that revealed atrial fibrillation with rapid ventricular response. The EKG was repeated upon arrival to the emergency room 10/22/2022 at 12:30 PM and per my interpretation reveals atrial fibrillation at 158 bpm with age-indeterminate septal infarct pattern. Compared to previous dating back to May 2022 atrial fibrillation had replaced sinus rhythm in the ventricular rate had increased by 89 bpm. Age-indeterminate septal infarct pattern noted limited to lead V2. Shortly after arrival to the emergency room she converted back to sinus rhythm as demonstrated on EKG performed at 12:44 PM yesterday and again this morning. Telemetry since arrival to the inpatient unit as revealed sinus rhythm for the most part in the 80s with occasional premature ventricular contractions. She has a previous history of paroxysmal supraventricular tachycardia, no known history of coronary heart disease, hypertension or dyslipidemia. She does note that she has been feeling shortness of breath on and off for the last few months, and does have occasional sensation of tachypalpitations. Chest x-ray and CT of the abdomen pelvis suggest right middle lobe consolidation consistent with pneumonia. Allergies Allergy/AdvReac Type Severity Reaction Status Date / Time varenicline AdvReac Intermediate nightmares Verified 10/22/22 15:34 Home Medications Medication Instructions Recorded Confirmed Type albuterol sulfate 90 mcg/actuation 2 puff inhalation Q6 PRN Wheezing 10/22/22 10/22/22 History aerosol inhaler atenolol 25 mg tablet 25 mg PO DAILY 10/22/22 10/22/22 History estradiol 0.01% (0.1 mg/gram) 1 appful vaginal 2XWK 10/22/22 10/22/22 History vaginal cream fexofenadine 60 mg tablet 0 mg PO DAILY 10/22/22 10/22/22 History fluticasone 250 mcg-salmeterol 50 1 ea inhalation BID 10/22/22 10/22/22 History mcg/dose blistr powdr for inhalation (Wixela Inhub) furosemide 40 mg tablet 40 mg PO DAILY 10/22/22 10/22/22 History lactobacillus combination no.4 3 0 mmu cells PO DAILY 10/22/22 10/22/22 History billion cell capsule (Probiotic) levothyroxine 100 mcg tablet 100 mcg PO DAILYBB 10/22/22 10/22/22 History liraglutide (weight loss) 3 mg/0.5 2.4 mg subcut DAILY 10/22/22 10/22/22 History mL (18 mg/3 mL) subcut pen injector (Saxenda) exclpqihfdou-sbvnpvyj-xvqdaq 1 tab PO DAILY 10/22/22 10/22/22 History tablet (Multivitamin 50 Plus tablet) potassium 99 mg tablet 99 mg PO DAILY 10/22/22 10/22/22 History Patient History Medical History Chronic back pain LBP Chronic obstructive pulmonary disease Stable History of COVID-19 Dx 2019- loss of appetite, sob, fever > resolved Hypothyroidism IBS (irritable bowel syndrome) Morbid obesity New onset a-fib Osteoarthritis Paroxysmal atrial tachycardia Remote hx- takes atenolol Follows with [facility] Paroxysmal SVT (supraventricular tachycardia) Remote hx- takes atenolol Follows with [facility] Pneumonia Sepsis Surgical History History of anesthesia reaction Awareness during hip replacement History of bilateral tubal ligation History of colonoscopy 12/04/21: MAC at [facility] History of left knee replacement Left TKA (12/01/19): SAB at L3/4 (x2 attempts) + PNB at [facility]. No issues noted per post-op anesthesia progress note. History of total hip arthroplasty R/L Hx of breast biopsy Bilateral breast > benign Family History Grandmother (Maternal) Family history of diabetes mellitus Aunt Family history of diabetes mellitus Other No family history of adverse response to anesthesia Social History Smoking Status: Former smoker Tobacco Type: Cigarettes Smoking End Date: 2007; Second Hand Exposure: No; Do You Dip or Chew Tobacco: No; Hx Alcohol Use: Yes Alcohol type: beer and hard liquor Hx Substance Use: No Preferred Language: Tajik Communication Ability: Effective Visual Impairment: No Limitations Personal Development Educator Required: No Beliefs That Will Affect Care: None marital status: Current Living Situation: Spouse Other Information That Helps Us Care for You: No Feels Safe at Home: Yes Safety Concerns: Feels Safe At This Time Assistive Devices: Glasses Review of Systems Review of Systems: All systems reviewed & are unremarkable except as noted in HPI & below Physical Exam Constitutional: WD/WN, vitals as above Eyes: PERRL, conjunctivae normal, anicteric sclerae Respiratory: Decreased breath sounds at right base, no rhonchi or wheezing Cardiovascular: RRR, no murmur, no edema Gastrointestinal (Abdomen): normal bowel sounds, soft, nontender, no hepatosplenomegaly Neurologic: PERRL, EOMI, accommodation nl, no face palsy, no dysarthria Results & Data Vital Signs (Past 12 Hours) Vital Signs Temp Pulse Resp BP Pulse Ox O2 Del Method 10/23/22 08:02 36.7 C 82 16 109/73 95 Room Air 10/23/22 03:20 37.3 C 110 H 20 131/75 94 Room Air 10/22/22 23:08 37.2 C 94 H 18 125/76 94 Room Air Laboratory Results Cardiac Enzymes 10/22/22 10/23/22 Range/Units 12:39 07:24 AST 18 25 (13-39) U/L Troponin I High Sens 6.1 (0-14) pg/ml Coagulation 10/22/22 Range/Units 12:39 PT 12.3 H (9.0-12.0) Seconds APTT 28.8 (21.0-31.0) Seconds CBC 10/22/22 10/23/22 Range/Units 12:39 07:24 WBC 13.89 H 15.16 H (4.8-10.8) K/ul RBC 4.73 4.08 L (4.20-5.40) M/uL Hgb 15.1 13.0 (12.0-16.0) g/dl Hct 43.9 38.5 (37.0-47.0) % Plt Count 348 318 (130-400) K/uL Neut # (Auto) 11.65 H (1.40-6.50) K/uL Lymph # (Auto) 0.77 L (1.2-3.4) K/uL [place] # (Auto) 1.37 H (0.11-0.59) K/uL Eos # (Auto) 0.01 (0-0.50) K/uL Baso # (Auto) 0.04 (0-0.2) K/uL Comprehensive Metabolic Panel 10/22/22 10/23/22 Range/Units 12:39 07:24 Sodium 134 L 136 (136-145) mmol/L Potassium 3.9 3.6 (3.5-5.1) mmol/L Chloride 101 106 (98-107) mmol/L Carbon Dioxide 26 23 (21-32) mmol/L BUN 12 8 (6-23) mg/dl Creatinine 0.70 0.59 L (0.6-1.2) mg/dl Glucose 144 H 146 H (70-99(Fasting)) mg/dl Calcium 9.9 9.2 (8.6-10.3) mg/dl AST 18 25 (13-39) U/L ALT 21 26 (7-52) U/L Alkaline Phosphatase 97 88 (34-104) U/L Total Protein 7.1 6.1 (6.0-8.3) gm/dl Albumin 3.6 3.1 L (3.4-5.0) gm/dl Intake and Output 10/22/22 10/23/22 10/23/22 22:59 06:59 14:59 Intake Total 1180 / 3520 1240 / 3520 753.333 / 753.333 Balance 1180 / 3520 1240 / 3520 753.333 / 753.333 Intake: IV 1180 / 3280 1000 / 3280 753.333 / 753.333 Doxycycline Hyclate 100 mg In 110 / 110 110 / 110 Dextrose 5% 100 ml @ 50 mls/hr IV Q12H ANTONY Rx#:[id number] Sodium Chloride 0.9% 1000ML 1, 1000 / 2000 1000 / 2000 643.333 / 643.333 000 ml @ 100 mls/hr IV .Q10H ANTONY Rx#:[id number] cefTRIAXone SODIUM 2,000 mg In 70 / 70 Dextrose 5% 50 ml @ 100 mls/hr IV Q24H ANTONY Rx#:[id number] Oral 240 / 240 Other: # Unmeasured Voids 2 Weight 96.5 kg Weight Measurement Method Built in [facility] Diagnostic Findings EKG performed 10/23/2022 and interpret independently: Sinus rhythm at 90 bpm with occasional premature ventricular contractions, nonspecific repolarization changes. -Echocardiogram performed 10/22/2022 revealed normal myocardial thickness, LVEF 55 to 60%, normal right ventricular systolic function, mild tricuspid regurgitation, pulmonary artery systolic pressures estimated to be 37 mmHg (mildly elevated)-left ventricular diastolic function normal. (2) Pneumonia Laterality: right Lung location: lower lobe of lung Pneumonia type: due to unspecified organism Qualified Code(s): J18.9 - Pneumonia, unspecified organism
[2022-10-23] MEDS: APIXABAN 5 MG TABLET PO SCH ×2 (11:28→20:22)
--- NOTE | 2022-10-23 15:08 | Hospitalist Progress Note ---
Date of Service October 23, 2022 Assessment & Plan (1) Pneumonia: (2) New onset a-fib: (3) DJD (degenerative joint disease) of hip: (4) Paroxysmal SVT (supraventricular tachycardia): (5) Hypothyroidism: (6) Sepsis: Plan 62 y/o found to be in new onset AF at PCP office; where she was to be evaluated for DAVIS, fever, chills, cough and general malaise with poor appetite. Spontaneously converted to ST then SR without antiarrhythmics. No atrial fibrillation inpatient history. Additional past medical history includes HTN, pSVT (On Atenolol), hypothyroidism, depression, and DJD. COVID-+ 08/12/2022; supportive treatment at that time and she reports that her symptoms have resolved without residual effects. Has not had the Pneumoccocal vaccine. Most recent ECHO 2019; EF 60%, no wall abnormalities, normal LV function with grade 1 diastolic dysfunction. Sepsis: Right middle lobe pneumonia: Patient was sent to the ED after she was found to have new onset atrial fibrillation at her PCPs office. She was at her PCPs office due to headache, fever, chills and cough. Leukocytosis present Chest x-ray personally reviewed; consolidation of right middle lobe CT abdomen and pelvis personally reviewed; partially imaged near complete consolidation of right lower lobe. Started on ceftriaxone and doxycycline. Antibiotic at least for [address] chest without contrast to better delineate the right middle lobe pneumonia. Discussed with patient regarding follow-up CT with her PCP to make sure there is resolution of the pneumonia Airway clearance therapy with DuoNeb and hypertonic saline. New onset A-fib: History of paroxysmal SVT: History of paroxysmal SVT. Reports episodic palpitation recently. EKG this a.m. personally reviewed; sinus rhythm with PVC. Nonspecific ST and T wave changes. QTc of 459 Discussed with cardiology; started on metoprolol tartrate twice daily. Started on Eliquis to prevent cardioembolic stroke. DJD: Chronic; used to take Percocet; does not take anymore conservative management Hypothyroidism: Takes levothyroxine Continue. Disposition: PCP: Dr. Michelle Code Status: Full Code VTE Prophylaxis: Eliquis Time spent evaluating patient, direct bedside care, chart review, placing orders, interpretation of diagnostic studies, discussion with consultants, patient, and family members, as well as other required patient management activities is 60 minutes. Please note the above document was generated using voice recognition software. It may contain grammatical, syntax or spelling errors. Any formal questions or concerns about the content, text or information contained within the body of this dictation should be directly addressed to the provider for clarification Admission and Anticipated Discharge Date Admission Date: October 22, 2022 Subjective Patient seen and examined at bedside. Reports dry cough; no complaint of palpitation at present time. Afebrile, normotensive and saturating well in room air Review of Systems Review of Systems: All systems reviewed & are unremarkable except as noted in Subjective Physical Exam Physical Exam: Constitutional: WD/WN, vitals as above, NAD, sitting up in bed, pleasant, conversing easily Respiratory: Decreased air entry in right middle lung field Cardiovascular: RRR, no murmur, no edema Vessels: no JVD or carotid bruit Chest: normal inspection of chest Abdomen: normal bowel sounds, soft, nontender, no hepatosplenomegaly Musculoskeletal: no cyanosis or clubbing, extremities motor strength 5/5 Skin: no rashes, warm and dry normal turgor Neurologic: PERRL, EOMI, accommodation nl, no face palsy, no dysarthria CN's II-XI intact bilaterally and moves all extremities Psychiatric: A+Ox3, euthymic affect Results & Data Results & Data Vital Signs (Past 12 Hours) Vital Signs Temp Pulse Resp BP Pulse Ox O2 Del Method 10/23/22 11:42 36.5 C 81 16 117/77 96 Room Air 10/23/22 10:46 84 18 96 Room Air 10/23/22 08:02 36.7 C 82 16 109/73 95 Room Air 10/23/22 03:20 37.3 C 110 H 20 131/75 94 Room Air Laboratory Results Laboratory Results WBC 15.16 K/ul (4.8-10.8) H 10/23/22 07:24 RBC 4.08 M/uL (4.20-5.40) L 10/23/22 07:24 Hgb 13.0 g/dl (12.0-16.0) 10/23/22 07:24 Hct 38.5 % (37.0-47.0) 10/23/22 07:24 MCV 94.4 fL (80.0-100.0) 10/23/22 07:24 MCH 31.9 pg (25.0-34.0) 10/23/22 07:24 MCHC 33.8 g/dL (32.0-36.0) 10/23/22 07:24 RDW Std Deviation 44.3 fL (36.4-46.3) 10/23/22 07: RDW Coeff of Demarco 12.7 % (11.5-14.5) 10/23/22 07:24 Plt Count 318 K/uL (130-400) 10/23/22 07:24 MPV 8.9 fL (9.4-12.4) L 10/23/22 07:24 Immature Gran % (Auto) 0.4 % 10/22/22 12:39 Neut % (Auto) 83.8 % 10/22/22 12:39 Lymph % (Auto) 5.5 % 10/22/22 12:39 [place] % (Auto) 9.9 % 10/22/22 12:39 Eos % (Auto) 0.1 % 10/22/22 12:39 Baso % (Auto) 0.3 % 10/22/22 12:39 Neut # (Auto) 11.65 K/uL (1.40-6.50) H 10/22/22 12:39 Lymph # (Auto) 0.77 K/uL (1.2-3.4) L 10/22/22 12:39 [place] # (Auto) 1.37 K/uL (0.11-0.59) H 10/22/22 12:39 Eos # (Auto) 0.01 K/uL (0-0.50) 10/22/22 12:39 Baso # (Auto) 0.04 K/uL (0-0.2) 10/22/22 12:39 Immature Gran # (Auto) 0.05 K/uL (0.01-0.20) 10/22/22 12:39 PT 12.3 Seconds (9.0-12.0) H 10/22/22 12:39 INR 1.1 (0.9-1.1) 10/22/22 12:39 APTT 28.8 Seconds (21.0-31.0) 10/22/22 12:39 PTT Ratio 1.0 10/22/22 12:39 Sodium 136 mmol/L (136-145) 10/23/22 07:24 Potassium 3.6 mmol/L (3.5-5.1) 10/23/22 07:24 Chloride 106 mmol/L (98-107) 10/23/22 07:24 Carbon Dioxide 23 mmol/L (21-32) 10/23/22 07:24 Anion Gap 7 (3-11) 10/23/22 07:24 BUN 8 mg/dl (6-23) 10/23/22 07:24 Creatinine 0.59 mg/dl (0.6-1.2) L 10/23/22 07:24 Est Cr Clr Drug Dosing 114.3 ml/min 10/23/22 07:24 Est GFR ( Amer) 113.1 ml/min 10/23/22 07:24 Est GFR (Non-Af Amer) 97.5 ml/min 10/23/22 07:24 BUN/Creatinine Ratio 13.6 (10-20) 10/23/22 07:24 Glucose 146 mg/dl (70-99(Fasting)) H 10/23/22 07:24 Lactate 1.6 mmol/L (0.4-2.0) 10/22/22 12:39 Calcium 9.2 mg/dl (8.6-10.3) 10/23/22 07:24 Phosphorus 3.3 mg/dl (2.5-4.9) 10/23/22 07:24 Magnesium 2.0 mg/dl (1.7-2.4) 10/22/22 12:39 Total Bilirubin 0.6 mg/dl (0.2-1.0) 10/23/22 07:24 AST 25 U/L (13-39) 10/23/22 07:24 ALT 26 U/L (7-52) 10/23/22 07:24 Alkaline Phosphatase 88 U/L (34-104) 10/23/22 07:24 Troponin I High Sens 6.1 pg/ml (0-14) 10/22/22 12:39 Total Protein 6.1 gm/dl (6.0-8.3) 10/23/22 07:24 Albumin 3.1 gm/dl (3.4-5.0) L 10/23/22 07:24 Globulin 3.0 gm/dl (2.5-4.0) 10/23/22 07:24 Albumin/Globulin Ratio 1.0 (0.9-2) 10/23/22 07:24 Lipase 33 U/L (11-82) 10/22/22 12:39 TSH 0.971 uIu/ml (0.300-4.500) 10/22/22 12:39 Urine Color [place] 10/22/22 Unknown Urine Appearance Clear (Clear) 10/22/22 Unknown Urine pH 5.5 (4.5-7.5) 10/22/22 Unknown Ur Specific [place] 1.023 (1.000-1.030) 10/22/22 Unknown Urine Protein 1+ (Negative) H 10/22/22 Unknown Urine Glucose (UA) Negative (Negative) 10/22/22 Unknown Urine Ketones Negative (Negative) 10/22/22 Unknown Urine Blood Trace (Negative) H 10/22/22 Unknown Urine Nitrite Negative (Negative) 10/22/22 Unknown Urine Bilirubin Negative (Negative) 10/22/22 Unknown Urine Urobilinogen Negative (Negative) 10/22/22 Unknown Ur Leukocyte Esterase 1+ (Negative) H 10/22/22 Unknown Urine WBC (Auto) 5-10 /hpf (0-5) H 10/22/22 Unknown Urine RBC (Auto) 0-4 /hpf (0-4) 10/22/22 Unknown U Hyaline Cast (Auto) 5-10 /lpf (0-5) H 10/22/22 Unknown U Epithel Cells (Auto) 20-30 /lpf (0-5) H 10/22/22 Unknown Urine Bacteria (Auto) Negative (Negative) 10/22/22 Unknown IgG 587.5 mg/dl (635-1741) L 10/23/22 07:24 IgA 109.8 mg/dl (70-400) 10/23/22 07:24 IgM 66.0 mg/dl (45-281) 10/23/22 07:24 Adenovirus (PCR) Not Detected (NotDetected) 10/22/22 13:00 B. pertussis DNA (PCR) Not Detected (NotDetected) 10/22/22 13:00 B.parapertussis DNA PCR Not Detected (NotDetected) 10/22/22 13:00 Lyme Disease IgG Ab Negative (Negative) 10/22/22 12:39 Lyme Disease IgM Ab Negative (Negative) 10/22/22 12:39 C. pneumoniae DNA (PCR) Not Detected (NotDetected) 10/22/22 13:00 Coronavirus OC43 (PCR) Not Detected (NotDetected) 10/22/22 13:00 Coronavirus HKU1 (PCR) Not Detected (NotDetected) 10/22/22 13:00 Coronavirus 229E (PCR) Not Detected (NotDetected) 10/22/22 13:00 SARS-CoV-2 (PCR) Not Detected (NotDetected) 10/22/22 13:00 Coronavirus NL63 (PCR) Not Detected (NotDetected) 10/22/22 13:00 Human Metapneumovir PCR Not Detected (NotDetected) 10/22/22 13:00 Influenza Type A (PCR) Not Detected (NotDetected) 10/22/22 13:00 Influenza Type B (PCR) Not Detected (NotDetected) 10/22/22 13:00 M. pneumoniae (PCR) Not Detected (NotDetected) 10/22/22 13:00 Parainfluenza 1 (PCR) Not Detected (NotDetected) 10/22/22 13:00 Parainfluenza 2 (PCR) Not Detected (NotDetected) 10/22/22 13:00 Parainfluenza 3 (PCR) Not Detected (NotDetected) 10/22/22 13:00 Parainfluenza 4 (PCR) Not Detected (NotDetected) 10/22/22 13:00 RSV (PCR) Not Detected (NotDetected) 10/22/22 13:00 Entero/Rhino (PCR) Not Detected (NotDetected) 10/22/22 13:00 Impressions Abdomen/Pelvis CT 10/22/22 12:[address] WITH IV CONTRAST CT DOSE: 1408.89 mGy.cm HISTORY: Acute right upper quadrant abdominal pain with fever ruq pain, fever, diarrhea TECHNIQUE: Multiaxial CT images of the abdomen and pelvis were performed following the IV administration of 94 cc of Optiray, A dose lowering technique was utilized adhering to the principles of ALARA. COMPARISON STUDY: Chest radiograph of same day, CT abdomen and pelvis 11/30/2021 FINDINGS: Partially imaged complete consolidation of the right middle lobe. Lung bases are otherwise generally clear. No pneumatosis or pneumoperitoneum. Unremarkable spleen, pancreas, gallbladder, adrenal glands and liver. Patency of the hepatic and portal veins. Unremarkable kidneys. There is no hydronephrosis. The distal ureters and pelvic structures are not well visualized secondary to streak artifact from the hip arthroplasties. Moderate atherosclerosis of the aorta without aneurysm. No lymphadenopathy. Tiny hiatal hernia. No bowel obstruction or bowel wall thickening. Colonic diverticulosis. Normal appendix. Unremarkable soft tissues. Degenerative changes of the spine. No acute fracture. IMPRESSION: 1. Partially imaged near complete consolidation of the right middle lobe suggestive of pneumonia. Follow-up imaging after treatment course recommended to document resolution. Findings could be correlated with bronchoscopy to exclude an obstructing endobronchial process. 2. No acute intra-abdominal or intrapelvic abnormality. 3. Colonic diverticulosis. 4. Normal appendix. ACT 112: Negative or not required by law. The above report was generated using voice recognition software. It may contain grammatical, syntax or spelling errors. Electronically signed by: Lawrence Killian M.D. 10/22/2022 2:22 PM Chest X-Ray 10/23/22 08:00 SINGLE VIEW CHEST CLINICAL HISTORY: Pneumonia FINDINGS: An AP, portable, upright chest radiograph is compared to study dated 10/22/2022 and correlated with abdominal CT dated 10/22/2022. The cardiomediastinal silhouette is unremarkable. Dense right middle lobe consolidation is unchanged. The left lung appears clear noting basilar atelectasis. No large pleural effusion is identified. No pneumothorax is seen. The skeletal structures are osteopenic. The bony thorax is grossly intact. IMPRESSION: Dense right middle lobe consolidation is unchanged from yesterday. Radiographic follow-up to resolution is recommended. ACT 112: Negative or not required by law. Electronically signed by: Andreas Gamino M.D. 10/23/2022 8:52 AM
[2022-10-23] MEDS: ACETAMINOPHEN 325 MG TAB PO PRN ×2 (16:10→23:58)
--- NOTE | 2022-10-23 16:34 | CT Scan Report ---
CT OF THE CHEST WITHOUT IV CONTRAST CLINICAL HISTORY: RML consolidation, rule out bronchial obstruction COMPARISON STUDY: Chest radiographs October 22, 2022 and October 23, 2022. CT of the abdomen and pelvis October 22, 2022. CT DOSE: 860.36 mGy.cm TECHNIQUE: Axial images of the chest were obtained without IV contrast. Images were reviewed in the axial, sagittal, and coronal planes. IV contrast was not administered for this examination. Automat ed exposure control was utilized for the study. A dose lowering technique was utilized adhering to t he principles of ALARA. FINDINGS: The size of the heart is normal. There is mild dilatation of the central pulmonary arterie s. A few prominent subcarinal lymph nodes measure up to 9 mm in short axis diameter. There is no todd cardial effusion. There is no pneumothorax or pleural effusion. Note is made of complete opacificatio n of the right middle lobe. There is apparent abrupt occlusion of the right middle lobe bronchus on a xial image 114 of 221. Etiology for this occlusion is not clearly evident on this unenhanced CT. Othe rwise, the airways are patent. There is mild upper lobe predominant emphysema. A few small irregular nodular densities within the right upper lobe measure up to 7 mm. No suspicious lesions within the [place] thorax are present. Visualized portions of the upper abdomen are unremarkable. IMPRESSION: 1. Complete opacification of the right middle lobe with minimal volume loss. This favors pneumonia an d may be postobstructive in etiology. Occlusion of the right middle lobe bronchus of uncertain etiolo gy. An occult mass cannot be excluded. This could be further evaluated with bronchoscopy. 2. A few prominent subcarinal lymph nodes. No overtly suspicious thoracic nodes. 3. Mild emphysema. 4. A few small irregular right upper lobe nodules which are indeterminate and can be assessed with a follow-up chest CT in 6 months to ensure resolution/stability. ACT 112: Positive. There are findings on this exam that require communication between the performing entity and the patient following Patient Test Result Information Act ([place] Act 112) guidelines. Electronically signed by: Davy Dumont M.D. 10/23/2022 4:33 PM
[2022-10-23] MEDS: SODIUM CHLOR 7% 4 ML NEB NEB SCH (19:18)
[2022-10-23] MEDS: METOPROLOL TARTRATE 25 MG TAB PO SCH (20:20)
[2022-10-23] MEDS: cefTRIAXone SODIUM 2,000 MG in DEXTROSE 5% 50 ML IV SCH (20:25)
[2022-10-23] MEDS ORDERED: METOPROLOL TARTRATE 25 MG TAB PO SCH (21:00)
[2022-10-23] MEDS: FLUTICASONE/VILANTEROL 200/25MCG 14 PUFFS/INHALER INH SCH (23:17)
[2022-10-24] MEDS: LEVOTHYROXINE SODIUM 100 MCG TABLET PO SCH (05:34)
--- NOTE | 2022-10-24 06:17 | Electrocardiogram Report ---
Test Reason : Blood Pressure : / mmHG Vent. Rate : 158 BPM Atrial Rate : 000 BPM P-R Int : 000 ms QRS Dur : 076 ms QT Int : 256 ms P-R-T Axes : 000 -46 051 degrees QTc Int : 415 ms Atrial fibrillation with rapid ventricular response Left anterior fascicular block Septal infarct , age undetermined Abnormal ECG When compared with ECG of 06-JUN-2022 15:14, Atrial fibrillation has replaced Sinus rhythm Vent. rate has increased BY 89 BPM Septal infarct is now Present Confirmed by Tim Childs ([id number]) on 10/24/2022 6:17:01 AM Referred By: Confirmed By:Tim Childs
--- NOTE | 2022-10-24 06:18 | Electrocardiogram Report ---
Test Reason : Blood Pressure : / mmHG Vent. Rate : 112 BPM Atrial Rate : 112 BPM P-R Int : 126 ms QRS Dur : 078 ms QT Int : 294 ms P-R-T Axes : 053 -42 035 degrees QTc Int : 401 ms Sinus tachycardia Possible Left atrial enlargement Left axis deviation Nonspecific T wave abnormality Abnormal ECG When compared with ECG of 22-OCT-2022 12:30, Sinus rhythm has replaced Atrial fibrillation Confirmed by Tim Childs ([id number]) on 10/24/2022 6:18:23 AM Referred By: Confirmed By:Tim Childs
[2022-10-24 06:35] LABS: Basophils # (auto) 0.04 K/uL (0-0.2); Basophils % (auto) 0.4 %; Eosinophils # (auto) 0.05 K/uL (0-0.50); Eosinophils % (auto) 0.4 %; Hematocrit (blood only) 36.8 % (37.0-47.0); Hemoglobin 12.3 g/dl (12.0-16.0); Immature Granulocytes # (auto) 0.05 K/uL (0.01-0.20); Immature Granulocytes % (auto) 0.4 %; Lymphocytes # (auto) 1.19 K/uL (1.2-3.4); Lymphocytes % (auto) 10.4 %; Mean Corpuscular Hemoglobin 31.7 pg (25.0-34.0); Mean Corpuscular Hgb Conc 33.4 g/dL (32.0-36.0); Mean Corpuscular Volume 94.8 fL (80.0-100.0); Mean Platelet Volume 8.9 fL (9.4-12.4); Monocytes # (auto) 1.14 K/uL (0.11-0.59); Neutrophils # (auto) 8.93 K/uL (1.40-6.50); Neutrophils % (auto) 78.4 %; Platelet Count 316 K/uL (130-400); RDW Coefficient of Variation 12.8 % (11.5-14.5); Red Blood Count 3.88 M/uL (4.20-5.40)
[2022-10-24 06:48] LABS: BUN Creatinine Ratio 14.8 (10-20); Calcium 9.4 mg/dl (8.6-10.3); Creatinine Clr Calc Pharmacy 142.9 ml/min; Est GFR (African American) 116.4 ml/min; Est GFR (Non-African American) 100.4 ml/min; Potassium 4.1 mmol/L (3.5-5.1)
[2022-10-24] MEDS: ALBUT/IPRATROP 3MG/0.5MG NEB 3 ML VIAL NEB SCH (07:04)
[2022-10-24] MEDS: SODIUM CHLOR 7% 4 ML NEB NEB SCH (07:05)
[2022-10-24] MEDS: FUROSEMIDE 40 MG TAB PO SCH (08:34)
[2022-10-24] MEDS: APIXABAN 5 MG TABLET PO SCH (08:35)
[2022-10-24] MEDS: METOPROLOL TARTRATE 25 MG TAB PO SCH (08:35)
[2022-10-24] MEDS: DOXYCYCLINE HYCLATE 100 MG in DEXTROSE 5% 100 ML IV SCH (08:37)
--- NOTE | 2022-10-24 10:26 | Pulmonary Consultation ---
Patient seen and examined. Agree with below assessment and plan. 62 F with COPD with RML collapse, otherwise on room air. Agree with bronchodilator, empiric augmemtin, and follow up CT in a few weeks to be followed in pulmonary clinic. Date of Consultation October 24, 2022 Assessment & Plan (1) Right middle lobe pneumonia: (2) Pulmonary nodules: (3) Chronic obstructive pulmonary disease: (4) History of tobacco abuse: (5) Obesity: Plan IMPRESSION: 62-year-old female presenting with symptoms of fevers, chills, chronic cough, nausea, and vomiting who was found to have RIGHT lower lobe opacification with concerns for pneumonia. Pulmonary medicine consulted given CT findings. RECOMMENDATIONS: 1. RIGHT middle lobe pneumonia - Dense consolidation of the RIGHT middle lobe. Thankfully, patient is without symptoms symptoms at this time and is not requiring supplemental oxygen. Would encourage aggressive pulmonary toilet including incentive spirometry every hour hours while awake and flutter valve every 4 hours per day. Additionally, I do agree with hypertonic saline nebulizers in the interim. As this certainly could suggest a postobstructive process, would recommend transitioning the patient to oral Augmentin if the plan is for early discharge. Would defer bronchoscopic evaluation initially. CT demonstrates no obvious obstructive lesion at this point. We can see the patient in office in 3 weeks with follow-up short-term CT in that timeframe to evaluate for resolution. Certainly, if at that point symptoms do not resolve, she may warrant further bronchoscopic evaluation, but do not see the utility in it at this point in the patient was stable and at her baseline otherwise. Was communicated with the primary service that she can be added to our schedule in the outpatient in 3 weeks with follow-up CT noncontrast of the chest. Of note, patient denies complaints of dysphagia or coughing during meals. No recurrent aspiration. 2. Pulmonary nodules - Small irregular densities noted in the RIGHT upper lobe measuring 7 mm or less. We will continue to monitor them moving forward with 6- month follow-up CT. Additionally, we will need to time adjust for when the patient quit smoking as she will likely be candidate moving forward for serial lung cancer screening given her significant smoking history. This can be arranged in the outpatient setting obviously. 3. COPD - As diagnosed by her primary care provider. Mild emphysema noted on CT. Patient has been on Wixela and as needed albuterol. Per discussion with the patient, she has had multiple episodes of recurrence this year alone. She has been on steroids approximately 4-5 times and antibiotics 2 or 3 times for exacerbations. She reports that she has had pulmonary function testing done at some time or another, but is uncertain when. Patient warrants outpatient pulmo nary evaluation. She is requesting to be seen by our office for ongoing management. Given her extensive smoking history, chronic cough, and recurrence of symptoms, the patient likely warrants at least the addition of a LAMA addition to her current regime. Consideration for changing her inhalers in general can be discussed in the outpatient setting, but will defer from changing multiple inhalers while inpatient. She likely warrants formal pulmonary function testing in the outpatient setting. 4. History of tobacco abuse - As discussed, patient will need quantified when she quit smoking as she has had a significant history of smoking for greater than 37 years at 2 to 3 packs/day. She likely warrants at minimum yearly low- dose CT scans for lung cancer screening moving forward. 5. Obesity - Patient would benefit from exercise and weight loss which would help improve lung function and reduce her symptoms. 6. Would recommend yearly influenza vaccination as well as Covid vaccination/ boosters and pneumonia vaccinations as recommended. Thank you for allowing us to participate in the care of this patient. We will be happy to see her in the office in the next 3 weeks for ongoing management and follow-up from hospitalization. History of Present Illness Reason for Consultation: RML Pneumonia Requesting Physician: Dr. Fuentes Attending Physician: Casey Fuentes MD History of Present Illness Patient is a 62-year-old female with a significant past medical history of degenerative joint disease, prior history of tobacco abuse, and prior diagnosis of COPD who presented to the emergency department on 10/22 with complaints of nausea, vomiting, diarrhea, abdominal pain, and a productive cough. Patient was noted to be in A-fib during visit at her primary care provider's office and was sent to the emergency department. She had spontaneously converted sometime during the evaluation. She had a chest x-ray which demonstrated concerns for RIGHT middle lobe pneumonia. CT suggestive of the same. The patient had empirically been placed on doxycycline and Rocephin. She reports that she has had a slight increase in her cough, but she has a daily cough related to her diagnosis of COPD. She reports baseline shortness of breath and wheezing. She has undergone pulmonary function testing at some point through her [facility] providers, but is uncertain as to when. The patient currently uses Wixela and albuterol as needed. She carries a significant smoking history that she smoked for approximately 37 years and smoked anywhere between 2 to 3 packs a day during that timeframe. She reports that she is required steroid use multiple times in the past year as well as antibiotics. She is uncertain of prior diagnosis of pneumonia. She reports no personal history of malignancy or lung cancer. No family history either. Currently, the patient reports that she is feeling back to her baseline. She denies complaints of chest pain, palpitations, dizziness, lightheadedness, shortness of breath, pleuritic pain, hemoptysis, or abdominal discomfort. Allergies Allergy/AdvReac Type Severity Reaction Status Date / Time varenicline AdvReac Intermediate nightmares Verified 10/22/22 15:34 Home Medications Medication Instructions Recorded Confirmed Type albuterol sulfate 90 mcg/actuation 2 puff inhalation Q6 PRN Wheezing 10/22/22 10/22/22 History aerosol inhaler atenolol 25 mg tablet 25 mg PO DAILY 10/22/22 10/22/22 History estradiol 0.01% (0.1 mg/gram) 1 appful vaginal 2XWK 10/22/22 10/22/22 History vaginal cream fexofenadine 60 mg tablet 0 mg PO DAILY 10/22/22 10/22/22 History fluticasone 250 mcg-salmeterol 50 1 ea inhalation BID 10/22/22 10/22/22 History mcg/dose blistr powdr for inhalation (Wixela Inhub) furosemide 40 mg tablet 40 mg PO DAILY 10/22/22 10/22/22 History lactobacillus combination no.4 3 0 mmu cells PO DAILY 10/22/22 10/22/22 History billion cell capsule (Probiotic) levothyroxine 100 mcg tablet 100 mcg PO DAILYBB 10/22/22 10/22/22 History liraglutide (weight loss) 3 mg/0.5 2.4 mg subcut DAILY 10/22/22 10/22/22 History mL (18 mg/3 mL) subcut pen injector (Saxenda) lggfpunxxfdq-yqzfzngs-ddgbud 1 tab PO DAILY 10/22/22 10/22/22 History tablet (Multivitamin 50 Plus tablet) potassium 99 mg tablet 99 mg PO DAILY 10/22/22 10/22/22 History apixaban 5 mg tablet (Eliquis) 5 mg PO BID #60 tabs 10/23/22 Rx Patient History Medical History (Updated 10/24/22 @ 10:37 by Mahin Newman PA-C) Chronic back pain LBP Chronic obstructive pulmonary disease Stable History of COVID-19 Dx 2020- loss of appetite, sob, fever > resolved Hypothyroidism IBS (irritable bowel syndrome) Morbid obesity New onset a-fib Osteoarthritis Paroxysmal atrial tachycardia Remote hx- takes atenolol Follows with [facility] Paroxysmal SVT (supraventricular tachycardia) Remote hx- takes atenolol Follows with [facility] Pneumonia Sepsis Surgical History History of anesthesia reaction Awareness during hip replacement History of bilateral tubal ligation History of colonoscopy 12/04/21: MAC at [facility] History of left knee replacement Left TKA (12/01/19): SAB at L3/4 (x2 attempts) + PNB at [facility]. No issues noted per post-op anesthesia progress note. History of total hip arthroplasty R/L Hx of breast biopsy Bilateral breast > benign Family History Grandmother (Maternal) Family history of diabetes mellitus Aunt Family history of diabetes mellitus Other No family history of adverse response to anesthesia Social History Smoking Status: Former smoker Tobacco Type: Cigarettes Smoking End Date: 2007; Second Hand Exposure: No; Do You Dip or Chew Tobacco: No; Hx Alcohol Use: Yes Alcohol type: beer and hard liquor Hx Substance Use: No Preferred Language: Romansh Communication Ability: Effective Visual Impairment: No Limitations Managed Care Provider Required: No Beliefs That Will Affect Care: None marital status: Current Living Situation: Spouse Other Information That Helps Us Care for You: No Feels Safe at Home: Yes Safety Concerns: Feels Safe At This Time Assistive Devices: None Review of Systems Review of Systems: A complete 10 point review of systems was reviewed with the patient with pertinent positives and negatives as per history of present illness. All else were negative. Physical Exam Physical Exam: VITAL SIGNS - Vital signs and nursing notes were reviewed. GENERAL - 62-year-old female appearing her stated age who is in no acute distress. Communicates well with provider and answers questions appropriately. SKIN - Without rashes or lesions. NOSE - Midline and without cyanosis. No epistaxis or purulent drainage noted. MOUTH/OROPHARYNX - Without perioral cyanosis. NECK - Neck with FROM. LUNGS - Auscultation reveals diminished breath sounds without wheezes, rales, or rhonchi appreciated. CARDIAC - RRR with S1/S2. No murmur, rubs, or gallops appreciated. ABDOMEN - Abdominal inspection demonstrates obese. BS normoactive all four quadrants. No tenderness, palpable masses, or ascites noted. EXTREMITIES - Nail clubbing not present. No peripheral cyanosis. No pretibial edema present. +3/5 radial palpated throughout. PSYCH - A&Ox3 and cooperates fully with examiner. Pt is very pleasant and interacts well with examiner. Results & Data Results & Data Vital Signs (Past 12 Hours) Vital Signs Temp Pulse Pulse Resp BP BP Pulse Ox 10/24/22 08:55 96 H 10/24/22 08:55 10/24/22 08:17 37.3 C 97 H 16 122/73 95 10/24/22 07:06 107 H 18 96 10/24/22 03:38 36.6 C 87 18 102/61 94 10/24/22 01:05 37.7 C H 10/23/22 23:15 38.2 C H 106 H 20 108/70 95 O2 Del Method 10/24/22 08:55 10/24/22 08:55 Room Air 10/24/22 08:17 Room Air 10/24/22 07:06 Room Air 10/24/22 03:38 Room Air 10/24/22 01:05 10/23/22 23:15 Room Air PG Care Time/CCT Total # of Minutes Spent Total Time Spent with Patient: Total time spent is greater than 50% in coordination of care (as documented) at patient's floor/unit and/or counseling patient: Coding Level of Care Code 75594 IN/OBS CONSULT LVL 4,60M Diagnoses Right middle lobe pneumonia J18.9 Pulmonary nodules R91.8 Chronic obstructive pulmonary disease J44.9 History of tobacco abuse Z87.891 Obesity E66.9
[2022-10-24] MEDS ORDERED: UMECLIDINIUM BROMIDE 62.5MCG/BLISTER 7 PUFFS/INHALER INH SCH (10:30)
--- NOTE | 2022-10-24 13:17 | Cardiology Progress Note ---
Date of Service October 24, 2022 Assessment & Plan (1) Atrial fibrillation with rapid ventricular response: (2) Pneumonia: Plan: Continue metoprolol and Eliquis. Metoprolol titrate may be transition to metoprolol succinate 75 mg daily at discharge. Outpatient cardiology follow-up in 2 to 4 weeks. Admission and Anticipated Discharge Date Admission Date: October 22, 2022 Subjective Patient seen examined the bedside. Telemetry reveals sinus rhythm in the 80s. Denies chest pain or palpitations. Ongoing cough improved with use of flutter device and incentive spirometry. Review of Systems Review of Systems: All systems reviewed & are unremarkable except as noted in Subjective Physical Exam Constitutional: well developed and well nourished; no acute distress Respiratory: no labored breathing and no retractions Auscultation: + diminished lung sounds (Right base); no crackles, no rales, no rhonchi, no wheezes and no pleural rub Cardiovascular: Rate/Rhythm: regular rate and regular rhythm Heart Sounds: normal S1 and normal S2; no murmur Vessels: no JVD Extremities: no edema Gastrointestinal (Abdomen): Inspection/Auscultation: abdomen normal to inspection and normal bowel sounds; abdomen not distended Percussion/Palpation: abdomen soft; abdomen nontender, no guarding and abdomen not rigid Neurologic: CN's II-XI intact bilaterally and moves all extremities; no focal motor deficits Results & Data Vital Signs (Past 12 Hours) Vital Signs Temp Pulse Pulse Pulse Resp BP BP 10/24/22 12:51 37.2 C 112 H 89 18 115/67 102/61 10/24/22 11:59 37.2 C 89 18 115/67 10/24/22 08:55 96 H 10/24/22 08:55 10/24/22 08:17 37.3 C 97 H 16 122/73 10/24/22 07:06 107 H 18 10/24/22 03:38 36.6 C 87 18 102/61 Pulse Ox O2 Del Method 10/24/22 12:51 96 10/24/22 11:59 96 Room Air 10/24/22 08:55 10/24/22 08:55 Room Air 10/24/22 08:17 95 Room Air 10/24/22 07:06 96 Room Air 10/24/22 03:38 94 Room Air Laboratory Results CBC 10/24/22 Range/Units 05:31 WBC 11.40 H (4.8-10.8) K/ul RBC 3.88 L (4.20-5.40) M/uL Hgb 12.3 (12.0-16.0) g/dl Hct 36.8 L (37.0-47.0) % Plt Count 316 (130-400) K/uL Neut # (Auto) 8.93 H (1.40-6.50) K/uL Lymph # (Auto) 1.19 L (1.2-3.4) K/uL [place] # (Auto) 1.14 H (0.11-0.59) K/uL Eos # (Auto) 0.05 (0-0.50) K/uL Baso # (Auto) 0.04 (0-0.2) K/uL Comprehensive Metabolic Panel 10/24/22 Range/Units 05:31 Sodium 140 (136-145) mmol/L Potassium 4.1 (3.5-5.1) mmol/L Chloride 108 H (98-107) mmol/L Carbon Dioxide 26 (21-32) mmol/L BUN 8 (6-23) mg/dl Creatinine 0.54 L (0.6-1.2) mg/dl Glucose 133 H (70-99(Fasting)) mg/dl Calcium 9.4 (8.6-10.3) mg/dl Intake and Output 10/23/22 10/24/22 10/24/22 22:59 06:59 14:59 Intake Total 70 / 1693.333 430 / 1693.333 72.5 / 72.5 Balance 70 / 1693.333 430 / 1693.333 72.5 / 72.5 Intake: IV 70 / 933.333 110 / 933.333 72.5 / 72.5 Doxycycline Hyclate 100 mg In 110 / 220 72.5 / 72.5 Dextrose 5% 100 ml @ 50 mls/hr IV Q12H ANTONY Rx#:[id number] cefTRIAXone SODIUM 2,000 mg In 70 / 70 Dextrose 5% 50 ml @ 100 mls/hr IV Q24H ANTONY Rx#:[id number] Oral 320 / 320 Other: # Unmeasured Voids 1 Weight 123.2 kg 123.2 kg Weight Measurement Method Built in [facility] Patient Weight 08/04/23 06:59 Weight 123.2 kg (2) Pneumonia Laterality: right Lung location: lower lobe of lung Pneumonia type: due to unspecified organism Qualified Code(s): J18.9 - Pneumonia, unspecified organism
--- NOTE | 2022-10-24 14:40 | Discharge Summary ---
Date of Service October 24, 2022 Admission HPI Per Admitting Provider Ms. Darnell is a 62-year-old female that presented from outpatient clinic after being found in new onset A-fib with heart rate 150; initially presented to outpatient clinic with nausea vomiting diarrhea and pain in her right lower abdomen with a productive cough. Per ED ED patient spontaneously converted to sinus tachycardia as evidence on ECG; no meds were given for rate control. No atrial fibrillation inpatient history. Leukocytosis 13.89 otherwise labs unremarkable. Lactate 1.6, troponin negative. Chest x-ray suggestive of mid to lower lobe pneumonia and abdominal CT suggestive of Partially imaged near complete consolidation of the right middle lobe suggestive of pneumonia. Follow- up imaging after treatment course recommended to document resolution. Findings could be correlated with bronchoscopy to exclude an obstructing endobronchial process. Most recent PFTs 08/30/2022; FEV1 1.37. Additional past medical history includes HTN, hypothyroidism, DJD. Per review of outpatient records patient with known cocaine, marijuana, amphetamine use as a teenager; confirmed she has not used illicit drugs since she was a teenager. COVID-positive 08/12/2022 per EMR link; supportive treatment at that time and she reports that her symptoms have resolved without residual effects. Has not had the Pneumoccocal vaccine. Most recent ECHO 2019; EF 60%, no wall abnormalities, normal LV function with grade 1 diastolic dysfunction. Obtain sputum culture, UDS, echocardiogram, blood cultures, broad-spectrum antibiotics and adjusting based on culture results, cough expectorant; should patient not show improvement consider pulmonary involvement. Patient denies headache, dizziness, visual or auditory changes, recent falls or trauma, hematuria, hematochezia, recent falls or trauma. During my examination, she was sitting upright in her hospital bed hving an ECHO performed at bedside. She is in no apparent distress and able to speak in complete sentences. She has decreased breath sounds posterioraly and it does hurt to take a considerable deep breath. Mid-lung with coarse sounds. Abdomen S/NT/ND; suspect discomfort is stemming from pneumonia. Will continue IV fluids with broad spectrum abx, Mucinex, and await culture results. Await ECHO results and Cards input as well. Patient will be admitted for further evaluation and management. Please see A/P for further details. Admission Exam Per Admitting Provider Neuro: AAOx4, PERRLA, no aphagia, memory changes, CNII-XII grossly intact HEENT: head normocephalic, moist mucus membranes CV: S1/S2, (-) M/G/R, (-) edema, cap refill < 3 seconds Resp: Lungs coarse mid lobes GI: Abdomen S/NT/ND, Ax4 bowel sounds, (-) CVA tenderness Musculoskeletal: 5/5 B/L UE strength, 5/5 B/L LE strength. No gait disturbance Skin: (-) rashes , (-) erythema. Psych: euthymic mood Principal Diagnosis Right middle lobe pneumonia Atrial fibrillation with RVR Discharge Exam Constitutional: WD/WN, vitals as above, NAD, sitting up in bed, pleasant, conversing easily Respiratory: Decreased breath sound in right middle lung field. Cardiovascular: RRR, no murmur, no edema Vessels: no JVD or carotid bruit Chest: normal inspection of chest Abdomen: normal bowel sounds, soft, nontender, no hepatosplenomegaly Musculoskeletal: no cyanosis or clubbing, extremities motor strength 5/5 Skin: no rashes, warm and dry normal turgor Neurologic: PERRL, EOMI, accommodation nl, no face palsy, no dysarthria CN's II- XI intact bilaterally and moves all extremities Psychiatric: A+Ox3, euthymic affect Discharge Data Allergies Allergy/AdvReac Type Severity Reaction Status Date / Time varenicline AdvReac Intermediate nightmares Verified 10/22/22 15:34 Consultations 10/22/22 14:58 ED Decision to Admit Stat 10/22/22 16:59 Consult Cardiology Routine 10/24/22 07:44 Consult Pulmonology Routine Ordered Studies 10/22/22 12:35 CT Abd and Pelvis [CT abd pelvis IV con only] Stat 10/23/22 15:07 CT chest diagnostic wo con Routine Hospital Course (1) Pneumonia: (2) New onset a-fib: (3) DJD (degenerative joint disease) of hip: (4) Paroxysmal SVT (supraventricular tachycardia): (5) Hypothyroidism: (6) Sepsis: Plan Sepsis: Right middle lobe pneumonia: Patient is a 62-year-old female who was sent from her PCPs office for new onset A-fib. She was at her PCPs office due to headache, fever, chills and cough. Leukocytosis present Chest x-ray showed; consolidation of right middle lobe CT abdomen and pelvis on admission showed; partially imaged near complete consolidation of right middle lobe CT chest was obtained which showed complete opacification of right middle lobe. Occlusion of right middle lobe bronchus of uncertain etiology. An occult mass cannot be excluded. Pulmonology was consulted given the CT chest finding. The recommended airway clearance with incentive spirometry, flutter valve, antibiotic with Augmentin. The recommended follow-up as outpatient in [address] chest without contrast Follow-up is set up for November 26, 2022 at 2 PM. New onset A-fib: History of paroxysmal SVT: On presentation to the ED, patient converted to sinus rhythm. Cardiology was consulted for comanagement. She was started on metoprolol for rate control and Eliquis as anticoagulation Echocardiogram was done which showed EF of 55 to 60%. At discharge, she was prescribed metoprolol succinate 75 mg once daily and Eliquis. Please note the above document was generated using voice recognition software. It may contain grammatical, syntax or spelling errors. Any formal questions or concerns about the content, text or information contained within the body of this dictation should be directly addressed to the provider for clarification Total Time Total Time Spent Total Time Spent (In Minutes): 45 Total Time Includes: Examination of the Patient, Discharge Planning, Medication Reconciliation, Communication With Other Providers and Other Discharge Plan Discharge Items Patient Disposition: Home - Self-Care Reason For Visit: NEW ONSET ATRIAL FIBRILLATION Discharge Diagnosis: Right middle lobe pneumonia Atrial fibrillation with RVR. Condition on Discharge: Fair Activity: Resume your previous activity Non-emergency contact: Primary Care Provider Call non-emergency contact if: you have any medication questions and your symptoms worsen Follow-up/Referrals: Mahin Newman PA-C [Hospitalist] - 11/26/22 2:00 pm Chandler Michelle MD [Primary Care Provider] - (Date & Time 11/01/2022 1:00 PM Provider Chandler Michelle MD Department Family Medicine [facility] ) Doreen Aggarwal CRNP [Outside Practitioners] - (Date & Time 10/29/2022 1:30 PM Provider [facility] Department Cardiology, [facility] ) Diet: Regular Addtl Attending Provider Instructions: You were admitted to the hospital for following conditions; 1) Atrial fibrillation with rapid ventricular rate: Cardiology evaluated you during the hospitalization. Echocardiogram was done which showed normal heart function (EF of 55 to 60%). Cardiology recommended following medication changes: A) Stop taking atenolol. You are prescribed metoprolol 75mg (1 and 1/2 tablets) to be taken once daily B) Uou are also started on a blood thinner (Eliquis) to be taken twice daily. 2) Right middle lobe pneumonia The CT chest done during the hospitalization showed pneumonia of right middle lobe. There is concern for occlusion of right middle lobe bronchus of uncertain etiology. Pulmonology saw you during the hospitalization. They recommended that you start taking Augmentin (antibiotics) twice a day for 7 more days for the pneumonia. They recommend outpatient follow-up with them in 3 weeks with a [address] chest without contrast. Please discuss with your primary care doctor regarding obtaining repeat CT chest in 2 weeks prior to the visit. We will get a call from them regarding the follow-up. Continue your airway clearance with incentive spirometry and flutter valve. Pending Studies at Discharge: No Stand-Alone Forms: My [facility] [email or web address], Smoking Cessation Medications and DC Order Prescriptions: New Eliquis 5 mg tablet 5 mg PO BID Qty: 60 0RF amoxicillin-pot clavulanate 875-125 mg tablet 1 tab PO BID 7 Days Qty: 14 0RF metoprolol succinate 50 mg tablet extended release 24 hr 75 mg PO DAILY Qty: 90 0RF Continued furosemide 40 mg tablet 40 mg PO DAILY fluticasone propion-salmeterol [Wixela Inhub] 250-50 mcg/dose blister with device 1 ea INHALATION BID fexofenadine 60 mg Tablet 0 mg PO DAILY levothyroxine 100 mcg tablet 100 mcg PO DAILYBB potassium 99 mg Tablet 99 mg PO DAILY estradiol 0.01 % (0.1 mg/gram) cream 1 appful VAGINAL 2XWK albuterol sulfate 90 mcg/actuation HFA aerosol inhaler 2 puff INHALATION Q6 PRN (Reason: Wheezing) Multivitamin 50 Plus Tablet 1 tab PO DAILY Probiotic 3 billion cell Capsule 0 mmu cells PO DAILY Rx Instructions: administer with a meal Saxenda 3 mg/0.5 mL (18 mg/3 mL) pen injector 2.4 mg SUBCUT DAILY Discontinued atenolol 25 mg tablet 25 mg PO DAILY Discharge Orders: Discharge Order (Routine); Ordered 10/24/22 Ordered By: Casey Fuentes Admission Data Admit Date/Time: 10/22/22 15:00 Attending Provider: Casey Fuentes Admit Provider: Lavinia Zuniga Primary Care Provider: Chandler Michelle Other Providers: Zka Carrion ; Lavinia Zuniga ; Bassam Gracia Other Interventions: Discharge Summary Assessment (RN) Last Done: 10/24/22 12:51
[2022-10-24] MEDS ORDERED: DOXYCYCLINE HYCLATE 100 MG CAP PO SCH (21:00)
--- NOTE | 2022-10-25 06:38 | Electrocardiogram Report ---
Test Reason : Blood Pressure : / mmHG Vent. Rate : 090 BPM Atrial Rate : 090 BPM P-R Int : 134 ms QRS Dur : 088 ms QT Int : 376 ms P-R-T Axes : 061 -26 030 degrees QTc Int : 459 ms Sinus rhythm with occasional Premature ventricular complexes Possible Left atrial enlargement Nonspecific ST and T wave abnormality Abnormal ECG When compared with ECG of 22-OCT-2022 12:44, Premature ventricular complexes are now Present Confirmed by Tim Childs ([id number]) on 10/25/2022 6:37:59 AM Referred By: Kris Interiano Confirmed By:Tim Childs
--- NOTE | 2022-10-25 22:03 | Electrocardiogram Report ---
Test Reason : Blood Pressure : / mmHG Vent. Rate : 094 BPM Atrial Rate : 094 BPM P-R Int : 130 ms QRS Dur : 088 ms QT Int : 348 ms P-R-T Axes : 050 -30 022 degrees QTc Int : 435 ms Normal sinus rhythm Left axis deviation T wave abnormality, consider anterior ischemia Abnormal ECG When compared with ECG of 23-OCT-2022 05:59, Premature ventricular complexes are no longer Present T wave inversion now evident in Anterior leads Confirmed by Tim Childs ([id number]) on 10/25/2022 10:02:44 PM Referred By: Kris Interiano Confirmed By:Tim Childs
== END 2022-10-24 14:12 | disposition home or self-care (01) | DRG 871 ==
LOC: ED 12:06 → EDINP 15:00 → SUATTDRO 15:00 → 4W 19:10